=== PATIENT | male | born 1965 | race Caucasian/White ===

== ENCOUNTER 2018-04-14 11:08 | Observation (INO) | payer MEDICAID, SELFPAY ==
[2018-04-14] VITALS (11 sets, daily range): BP systolic 144–164; BP diastolic 90–105; PULSE 69–115; RESP 16–20; TEMP 36.4–36.7; O2SAT 96–100; BMI 25.1; BMI 27.2
--- NOTE | 2018-04-14 11:36 | EKG12_ITS ---
Test Reason : EDEMA Blood Pressure : / mmHG Vent. Rate : 105 BPM Atrial Rate : 105 BPM P-R Int : 136 ms QRS Dur : 084 ms QT Int : 346 ms P-R-T Axes : 046 034 057 degrees QTc Int : 457 ms Sinus tachycardia Low voltage QRS (LIMB LEADS) Borderline ECG Confirmed by GERMAN HOOPER, JUSTICE ([id number]), acquisition editor MARIELA EDWARD ([id number] on 04/15/2018 9:48:20 AM Referred By: CAROLYN Confirmed By:JUSTICE PORTER MD
[2018-04-14] MEDS: HYDROmorphone 1 MG/ML Syringe IV (11:44)
[2018-04-14] MEDS: Ondansetron 4 MG/2 ML Vial IV (11:44)
--- NOTE | 2018-04-14 11:51 | ED.VISSUMM ---
- ER Visit Summary Date of Service: 04/14/18 Chief Complaint: Leg swelling History of Present Illness: The patient is a 52 M who tells me that 1-1/2 weeks ago his abdomen began to swell. Then about 1 week ago he developed swelling to the legs. He notes legs are now weeping. He tells me that about 3-1/2-4 years ago he was diagnosed with stage IV colon cancer as well as throat cancer. After a partial colectomy that was last time he had radiation or chemotherapy. He states he has been avoiding his oncologist Dr. Godoy. He has been seeing his primary care doctor every few months he states. He notes he has been having a lot of diarrhea. He notes some shortness of breath. Physical Examination: Afebrile noted tachycardia stable blood pressure Gen: Well-nourished well-developed Head: Normocephalic atraumatic Eyes: Perrl EOMI ENT: TMs clear no rhinorrhea moist mucous membranes Neck: Supple no lymphadenopathy no JVD nontender CVS: Regular rate cardiac rhythm no murmurs normal S1-S2 Respiratory: No distress clear to auscultation bilaterally chest nontender Abdomen: Distended and tense normal bowel sounds no masses Back: Nontender Extremity: Bilateral lower extremity edema with petechial-like rash near the ankles Skin: Jaundice dry Neuro: alert orientated ?3 CN II-XII intact normal strength sensation reflexes gait cerebellar Psych: Normal affect normal mood Test Results: White count 6.6 with hemoglobin 12.3. EKG shows sinus tachycardia rate of 105. BMP normal. Liver enzymes showed a total bili 3.3 direct bili 2.81. Alk phos of 1858. ALT 118 AST 274. INR 1.[address] the chest demonstrates numerous metastasis. CT of the pelvis demonstrates hepatomegaly with large tumor burden and large ascites with compression of the inferior vena cava. Emergency Department Course and Treatment: I spoke with Dr. Godoy our hospitalist and with the patient and his family. Our plan will be admission for further care. Impression: 1. Metastatic colon cancer 2. Inferior vena cava syndrome This note was generated with [employer] dictation software. It may contain incorrect words, spelling, and punctuation that were not noted in review of the chart prior to signing ED Disposition - Plan for ED Patient: Chief Complaint: Edema Referrals: Hannah Bryson, [employer] [Primary Care Provider] -
[2018-04-14 12:05] LABS: International Normalized Ratio 1.4; Prothrombin Time (Protime)PT. 16.7 SECONDS (11.7-14.9)
[2018-04-14 12:06] LABS: Absolute Lymphocyte Count 0.36 X10^3/ul (0.83-4.51); Absolute Neutrophil Count 5.5 X10^3/uL (2.0-7.7); Basophil# 0.02 X10^3/uL; Basophil% 0.3 % (0-1); Eosinophil# 0.11 X10^3/uL; Eosinophils% 1.7 % (0-5); Hematocrit 37.1 % (40-54); Hemoglobin 12.3 g/dl (13.0-16.5); Lymphocyte # 0.36 X10^3/ul (4.0); Lymphocyte % 5.5 % (19-41); Mean Corp Hgb Conc 33.2 g/gl (32-36); Mean Corpuscular Hgb 28.2 pg (27.0-32.0); Mean Corpuscular Volume 85.1 fL (80-94); Mean Platelet Vol. 10.6 fl (6.2-12.0); Monocyte# 0.55 X10^3/uL; Monocyte% 8.4 % (0-10); Neutrophil # 5.52 X10^3/uL (2.7-7.7); Neutrophil % 83.8 % (47-70); Partial Thromboplast Time 43.9 Seconds (24.1-36.2); Platelet Count 323 K/mm3 (150-450); RBC Distribution Width CV 16.8 % (11.6-14.6); RBC Distribution Width SD 51.9 fl (35.1-43.9); Red Blood Count 4.36 M/mm3 (4.6-6.2); White Blood Count 6.6 K/mm3 (4.4-11.0)
[2018-04-14 12:12] LABS: Differential Indicated SCAN CRITERIA MET; POSITIVE COUNT NO; POSITIVE DIFFERENTIAL YES; POSITIVE MORPHOLOGY NO
[2018-04-14 12:34] LABS: Red Blood Cells-Urine 0 SEEN /hpf (0-5); Squamous Epithelial Cells - UA 0 SEEN /hpf (0-5)
[2018-04-14 12:36] LABS: AST(SGOT) 274 U/L (15-37); Alanine Aminotransfer ALT/SGPT 118 U/L (16-61); Albumin, Serum 2.3 g/dL (3.2-5.0); Alkaline Phosphatase 1858 U/L (45-117); Anion Gap 6 (5-15); BUN 16 mg/dL (7-18); BUN/Creat Ratio 18.3 RATIO (10-20); Bilirubin, Direct 2.81 mg/dL (0.00-0.30); Calcium,Total 8.5 mg/dL (8.5-10.1); Chloride 99 mmol/L (98-107); Creatinine, Serum 0.88 mg/dL (0.70-1.30); EST Glomerular Filtration Rate 97 mL/min (>60); Est Glom Filt Rate - Afr Amer 117 mL/min (>60); Estimated Creatinine Clearance 101.39 ml/min; Globulin 5.1 g/dL (2.2-4.2); Glucose 110 mg/dL (74-106); Lipase 110 U/L (73-393); Potassium 4.2 mmol/L (3.5-5.1); Protein, Total 7.4 g/dL (6.4-8.2); Sodium Level 130 mmol/L (136-145)
[2018-04-14 12:37] LABS: Color, Urine Straw (Yellow); Glucose, Dipstick Normal (Normal); Ketone-Dipstick Negative (Negative); Leukocyte Esterase-Dipstick 25 /ul (Negative); Nitrite-Dipstick Negative (Negative); Occult Blood-Urine Negative /ul (Negative); Protein-Dipstick 30 mg/dl (Negative); Urine Clarity Clear (Clear); Urine Urobilinogen 4 mg/dl (Normal)
[2018-04-14 12:43] LABS: Urine Bilirubin Dipstick 3 mg/dL (Negative)
[2018-04-14 12:46] LABS: Bacteria RARE /hpf (None Seen); Hyaline Cast 0-5 SEEN /lpf (0-5); Mucous, Urine RARE /hpf (<or=2+); White Blood Cells 0-5 SEEN /hpf (0-5)
--- NOTE | 2018-04-14 12:54 | CT_ITS ---
STUDY: CT ABDOMEN AND PELVIS WITH CONTRAST REASON FOR EXAM: Male, 52 years old. Leg swelling RADIATION DOSAGE (If Supplied By Facility): CTDIvol = ( 15.43 ) mGy, DLP = ( 1623.37 ) mGycm TECHNIQUE: Transaxial images were obtained from the lower chest to the upper thighs without oral contrast. 100 ml of Isovue 300 contrast was administered. Sagittal and coronal images were reconstructed. Individualized dose optimization techniques were used for this CT. COMPARISON: CT abdomen and pelvis report dated September 27, 2016 FINDINGS: The lower chest is dictated separately. There are scattered nodules in both lung bases, likely metastases. There is no pleural effusion. The heart is normal in size. There are innumerable hypodense masses scattered throughout both lobes of the liver. There is marked enlargement of the liver. There is non-visualization of the gallbladder, which may be secondary to either contraction or a prior cholecystectomy. The spleen is unremarkable. The pancreas is unremarkable. The adrenal glands are unremarkable. There is a 1 cm cyst in the lower pole of the right kidney. There is no dilatation of the collecting system in the right kidney. The left kidney is unremarkable. There is no dilatation of the collecting system in the left kidney. The stomach is unremarkable. The small bowel is unremarkable. The proximal colon is surgically absent. There are minimal vascular calcifications. The upper IVC is markedly narrowed. There are small lymph nodes scattered in the retroperitoneum. There are prominent lymph nodes in the portal venous space measuring up to 1.8 cm in size. There is marked fluid throughout the abdomen. The urinary bladder is unremarkable. The prostate is normal in size with calcifications. There is moderate fluid in the pelvis. There is stranding throughout the subcutaneous tissues of the upper legs bilaterally. There are mild degenerative changes in the visualized spine. There are a few nonspecific lytic abnormalities in the pelvic bones. CT/Abdomen/Pelvis W IV Cont ONLY IMPRESSION: There is marked enlargement of the liver with innumerable metastatic lesions scattered throughout both lobes of the liver. The liver is markedly narrowing the upper aspect of the IVC, possibly accounting for the leg swelling and soft tissue edema seen in the upper aspects of both legs on the CT. There is marked ascites in the abdomen and pelvis. There are prominent lymph nodes in the portal venous space. There are small lymph nodes scattered along the retroperitoneum. There are small metastases in both lung bases. Electronically Signed: Hallie Kapadia MD at 14:02 EDT Tel Direct: [phone], Service support ,
--- NOTE | 2018-04-14 12:54 | CT_ITS ---
STUDY: CT CHEST WITH CONTRAST REASON FOR EXAM: Male, 52 years old. History of bilateral lower extremity swelling. The patient is a history of stage IV colon cancer. RADIATION DOSAGE (If Supplied By Facility): CTDIvol = ( 15.43 ) mGy, DLP = ( 1623.37 ) mGycm TECHNIQUE: Transaxial imaging was performed following intravenous administration of 100 ml of Isovue 300 contrast material. Multiplanar coronal and sagittal images were reformatted. Individualized dose optimization techniques were used for this CT. COMPARISON: Comparison is made with prior study dated September 27, 2016. FINDINGS: Elevation of the right hemidiaphragm. Mild degree of emphysematous changes. Since prior study, there are multiple small rounded nodular densities seen in both lungs. The largest measures 8.4 mm and is seen in the lateral aspect of the right upper lobe as seen on axial image #46. This is suggestive of a pulmonary metastasis. Mild degree of atelectasis along the anterior aspect of the right middle lobe. There is no demonstrated pleural abnormality. Normal heart and pericardium. Normal mediastinum. Normal hilar regions. Normal enhanced pulmonary arteries. Normal aorta arch and descending thoracic aorta. Normal osseous structures. Elevation of the right hemidiaphragm. Marked degree of hepatomegaly with diffuse hepatic metastasis. There is evidence of a perihepatic and perisplenic fluid. Limited visualization of the upper abdomen demonstrates evidence of mesenteric metastasis. CT/Chest WITH Contrast IMPRESSION: Bilateral multiple pulmonary nodules in keeping with metastatic disease. Marked degree of hepatomegaly with perisplenic and perigastric hepatic fluid. Diffuse hepatic metastasis. Electronically Signed: Flakito Justice MD at 13:49 EDT Tel [phone], Service support ,
--- NOTE | 2018-04-14 14:57 | PCM.HP.STD ---
Problem List (1) Abdominal swelling Status: Acute (2) Swelling of both lower extremities Status: Acute History of Present Illness Date of Admission: 04/14/18 Chief Complaint: abdominal swelling; bilateral leg swelling The patient is a 52 year old M with a history of colon cancer status post colon resection and chemotherapy and radiation about 4 years ago. He subsequently never followed up with oncology. He was admitted through the ED on 04/14/18 with a complaint of abdominal swelling and bilateral lower extremity swelling for 1.5 weeks. Symptoms are progressively worsening with associated shortness of breath and increased weakness. He therefore decided to come into the ED for assessment. He denied any fever or chills, any cough or chest pain and admitted to generalized abdominal pain due to the abdominal swelling. He denied any diarrhea vomiting. Vitals were significant for blood pressure of 149/100 and respiratory rate of 69 at time of review. Sodium was 130 with elevated total bilirubin of 3.3 and direct bilirubin of 2.81. AST and ALT was 274 and 118 and ALP was elevated at 1858. CBC was unremarkable. Abdominal pelvic CT showed marked enlargement of the liver with innumerable metastatic lesions scattered throughout both lobes of the liver with liver markedly narrowing the upper aspect of the IVC possibly accounting for the leg swelling and soft tissue edema seen in the upper aspects of both legs of the CT market ascites in the abdomen and pelvis and prominent lymph nodes in the periportal space and small meta stasis in both lung bases. Chest CT showed bilateral multiple small rounded nodular densities with the largest being around 8.4 mm suggestive of pulmonary metastasis. Is been admitted to be managed for malignant ascites due to metastatic cancer, likely of the colon. [] Past Medical History Allergies shellfish derived Allergy (Verified 04/14/18 11:11) Itching Home Medications: Ambulatory Orders Medication Instructions Recorded Acetaminophen [Tylenol Extra 1,500 mg PO PRN PRN 04/14/18 Strength] Albuterol Sulfate [Ventolin Hfa] 2 puff IH Q4H PRN PRN 04/14/18 Citalopram [Celexa] 20 mg PO DAILY 04/14/18 Lisinopril 40 mg PO DAILY 04/14/18 Omeprazole 20 mg PO DAILY 04/14/18 Ondansetron [Zofran Odt] 8 mg PO Q8H PRN PRN 04/14/18 Oxycodone HCl/Acetaminophen 1 each PO Q4H PRN PRN 04/14/18 [Oxycodon-Acetaminophen 7.5-325] Surgical History: - - hemicolectomy Psychiatric History: No pertinent psych hx Lives: Spouse/ Significant Other Smoking Status: Current every day smoker - 2 packs of cigarettes daily Tobacco Use: Cigarettes Alcohol: None - *Family History Maternal History Items: No pertinent history Paternal History Items: No pertinent history Review of Systems Constitutional: Reports: Anorexia, Chills, Malaise, Weakness, Fatigue. Denies: Fever, Night Sweats Eyes: Denies: Blurred vision HEENT: Denies: Head Aches, Sinus Congestion, Sinus Drainage Cardiovascular: Denies: Chest Pain, Orthopnea, Palpitations, Paroxysmal Noc. Dyspnea, Syncope Respiratory: Reports: Shortness of Breath. Denies: Cough, Shortness of breath at rest, Shortness of breath upon exertion, Sputum production, Wheezing Gastrointestinal: Reports: Abdominal Pain, - - abdominal distension. Denies: Constipation, Diarrhea, Dyspepsia, Nausea, Vomiting Genitourinary: Denies: Dysuria Musculoskeletal: Denies: Joint Pain, Joint Tenderness Skin: Reports: Jaundice. Denies: Rash, Wounds Neurological: Denies: Numbness, Tingling, Focal weakness Psychiatric: Denies: Anxiety, Depression, Homicidal Ideations, Suicidal Ideations Hematologic/ Lymphatic: Denies: Easy Bruising, Easy Bleeding VTE Information - Inpt Only VTE Present on Admission: No VTE Pharm Prophylaxis ordered?: Yes Patient Problems: Active and Suspected Problems Abdominal swelling (Acute) Swelling of both lower extremities (Acute) - Physical Exam General: Alert, Oriented x3, Cooperative, No apparent distress, Lethargic HEENT: Atraumatic, PERRLA, EOMI, Normocephalic, - - very jaundiced sclera Oral: Dry Mucosa Neck: Supple, No JVD, Negative Carotid Bruits Lungs: Clear to auscultation, Normal air movement, No rhonchi, No wheeze, No rales Cardiovascular: Regular rate, Regular Rhythm, Normal S1, Normal S2, No murmurs Abdomen: - - abdomen very distended, with positive fluid thrill. Unable to assess for organomegaly o/a of severe abdominal distension and ascites Extremities: - - bialteral LE pitting 3+ pedal edema, extending from ankle up to groin. Skin: No rashes, No breakdown Musculoskeletal: No Tenderness to Palpation of Joints or Extremities Lymphatic: No Cervical, Supraclavicular, or Inguinal Adenopathy Neurological: Cranial nerves II-XII grossly intact, Neuro grossly intact Psych/Mental Status: Normal Affect, Appropriate, Alert and oriented to time, place, person, mood and affect Vital Signs Temp Pulse Resp BP Pulse Ox 97.5 F L 69 19 H 149/100 H 100 04/14/18 11:09 04/14/18 13:54 04/14/18 13:54 04/14/18 13:54 04/14/18 13:54 Oxygen Delivery Method Room Air Weight: 175 lb Body Mass Index (BMI) 25.1 Laboratory Tests Past 24 Hrs 04/14/18 04/14/18 04/14/18 11:50 11:50 11:50 WBC 6.6 RBC 4.36 L Hgb 12.3 L Hct 37.1 L MCV 85.1 MCH 28.2 MCHC 33.2 RDW 16.8 H RDW Differential 51.9 H Plt Count 323 MPV 10.6 Immature Gran % (Auto) 0.300 Neut % (Auto) 83.8 H Lymph % (Auto) 5.5 L Rout[place] % (Auto) 8.4 Eos % (Auto) 1.7 Baso % (Auto) 0.3 Absolute Neuts (auto) 5.5 Absolute Lymphs (auto) 0.36 L Total Counted Not Reportable Differential Comment COMMENT PT 16.7 H INR 1.4 APTT 43.9 H Sodium 130 L Potassium 4.2 Chloride 99 Carbon Dioxide 25.0 Anion Gap 6 BUN 16 Creatinine 0.88 Estim Creat Clear Calc 101.39 Est GFR (MDRD) Af Amer 117 Est GFR (MDRD) Non-Af 97 BUN/Creatinine Ratio 18.3 Glucose 110 H Calcium 8.5 Total Bilirubin 3.30 H Direct Bilirubin 2.81 H AST 274 H ALT 118 H Alkaline Phosphatase 1858 H Total Protein 7.4 Albumin 2.3 L Globulin 5.1 H Lipase 110 Urine Color Urine Clarity Urine pH Ur Specific [place] Urine Protein Urine Glucose (UA) Urine Ketones Urine Occult Blood Urine Nitrite Urine Bilirubin Urine Urobilinogen Ur Leukocyte Esterase Urine RBC Urine WBC Ur Squamous Epith Cells Urine Bacteria Hyaline Casts Urine Mucus 04/14/18 12:25 WBC RBC Hgb Hct MCV MCH MCHC RDW RDW Differential Plt Count MPV Immature Gran % (Auto) Neut % (Auto) Lymph % (Auto) [place] % (Auto) Eos % (Auto) Baso % (Auto) Absolute Neuts (auto) Absolute Lymphs (auto) Total Counted Differential Comment PT INR APTT Sodium Potassium Chloride Carbon Dioxide Anion Gap BUN Creatinine Estim Creat Clear Calc Est GFR (MDRD) Af Amer Est GFR (MDRD) Non-Af BUN/Creatinine Ratio Glucose Calcium Total Bilirubin Direct Bilirubin AST ALT Alkaline Phosphatase Total Protein Albumin Globulin Lipase Urine Color Straw Urine Clarity Clear Urine pH 5.0 Ur Specific [place] 1.020 Urine Protein 30 H Urine Glucose (UA) Normal Urine Ketones Negative Urine Occult Blood Negative Urine Nitrite Negative Urine Bilirubin 3 H Urine Urobilinogen 4 H Ur Leukocyte Esterase 25 H Urine RBC 0 SEEN Urine WBC 0-5 SEEN Ur Squamous Epith Cells 0 SEEN Urine Bacteria RARE Hyaline Casts 0-5 SEEN Urine Mucus RARE Diagnostic Data Abdomen/Pelvis CT 04/14/18 12:54 IMPRESSION: There is marked enlargement of the liver with innumerable metastatic lesions scattered throughout both lobes of the liver. The liver is markedly narrowing the upper aspect of the IVC, possibly accounting for the leg swelling and soft tissue edema seen in the upper aspects of both legs on the CT. There is marked ascites in the abdomen and pelvis. There are prominent lymph nodes in the portal venous space. There are small lymph nodes scattered along the retroperitoneum. There are small metastases in both lung bases. Electronically Signed: Hallie Kapadia MD at 14:02 EDT Tel Direct: [phone], Service support , Chest CT 04/14/18 12:54 IMPRESSION: Bilateral multiple pulmonary nodules in keeping with metastatic disease. Marked degree of hepatomegaly with perisplenic and perigastric hepatic fluid. Diffuse hepatic metastasis. Electronically Signed: Flakito Justice MD at 13:49 EDT Tel [phone], Service support , Assessment/Plan All Active Problems Abdominal swelling (Acute) Swelling of both lower extremities (Acute) 52 y/o admitted with the complaint of abdominal distention bilateral lower extremity edema. 1. Malignant ascites likely due to metastatic colon cancer lost to follow-up with oncologist after he had chemotherapy and radiation hemicolectomy for colon cancer about 4 years ago. admit to PCU with telemetry for therapeutic and diagnostic paracentesis by radiology. oncology consult. 2. Metastatic cancer, likely colon CT abdomen, pelvis and chest showed numerous hepatic nodules obstructing the IVC and enlarged lymph nodes as well. CT of the chest showed bilateral pulmonary nodules likely metastatic. As mentioned, treated for colon cancer 4 years ago so this is presumed to be metastatic cancer likely due to colon cancer. Consult oncology. Prognosis is very very poor. 3. Bilateral LE swelling likely due to impedance of venous and lymphatic drainage from LEs by massive ascites. However cannot fully rule out DVT due to patient's malignancy. Will get duplex of both lower extremities. Will monitor for resolution with paracentesis. Bilateral Wallace wraps. 4. Hyperbilirubinemia due to hepatic metastases of colon cancer total bilirubin is 3.3; mainly a direct bilirubin-2.8 AST/ALT-274/118. ALP-[id number] consult oncology INR-1.4, APTT-16.7, APTT-43.9 5. Hypertension: on Lisinopril 6. Depression: on celexa 7. Nicotine dependence: smokes 2 packs daily. counselled to quit. DVT prophylaxis: SCDs CODE STATUS: DNRCCA Patient and significant other counseled extensively about different types of CODE STATUS including full code, DNR CCA and DNR CCA. Patient elects to be DNRCCA. Total [id number] time 16 minutes. Code Visit Inpatient E&M: 19548 Init Hosp L3 Procedures: 94688 Advncd Care Plan 30 Min
--- NOTE | 2018-04-14 15:03 | HP.PCM_ITS ---
Problem List (1) Abdominal swelling Status: Acute (2) Swelling of both lower extremities Status: Acute History of Present Illness Date of Admission: 04/14/18 Chief Complaint: abdominal swelling; bilateral leg swelling The patient is a 52 year old M with a history of colon cancer status post colon resection and chemotherapy and radiation about 4 years ago. He subsequently never followed up with oncology. He was admitted through the ED on 04/14/18 with a complaint of abdominal swelling and bilateral lower extremity swelling for 1.5 weeks. Symptoms are progressively worsening with associated shortness of breath and increased weakness. He therefore decided to come into the ED for assessment. He denied any fever or chills, any cough or chest pain and admitted to generalized abdominal pain due to the abdominal swelling. He denied any diarrhea vomiting. Vitals were significant for blood pressure of 149/100 and respiratory rate of 69 at time of review. Sodium was 130 with elevated total bilirubin of 3.3 and direct bilirubin of 2.81. AST and ALT was 274 and 118 and ALP was elevated at 1858. CBC was unremarkable. Abdominal pelvic CT showed marked enlargement of the liver with innumerable metastatic lesions scattered throughout both lobes of the liver with liver markedly narrowing the upper aspect of the IVC possibly accounting for the leg swelling and soft tissue edema seen in the upper aspects of both legs of the CT market ascites in the abdomen and pelvis and prominent lymph nodes in the periportal space and small meta stasis in both lung bases. Chest CT showed bilateral multiple small rounded nodular densities with the largest being around 8.4 mm suggestive of pulmonary metastasis. Is been admitted to be managed for malignant ascites due to metastatic cancer, likely of the colon. [] Past Medical History Allergies shellfish derived Allergy (Verified 04/14/18 11:11) Itching Home Medications: Ambulatory Orders Medication Instructions Recorded Acetaminophen [Tylenol Extra 1,500 mg PO PRN PRN 04/14/18 Strength] Albuterol Sulfate [Ventolin Hfa] 2 puff IH Q4H PRN PRN 04/14/18 Citalopram [Celexa] 20 mg PO DAILY 04/14/18 Lisinopril 40 mg PO DAILY 04/14/18 Omeprazole 20 mg PO DAILY 04/14/18 Ondansetron [Zofran Odt] 8 mg PO Q8H PRN PRN 04/14/18 Oxycodone HCl/Acetaminophen 1 each PO Q4H PRN PRN 04/14/18 [Oxycodon-Acetaminophen 7.5-325] Surgical History: - - hemicolectomy Psychiatric History: No pertinent psych hx Lives: Spouse/ Significant Other Smoking Status: Current every day smoker - 2 packs of cigarettes daily Tobacco Use: Cigarettes Alcohol: None - *Family History Maternal History Items: No pertinent history Paternal History Items: No pertinent history Review of Systems Constitutional: Reports: Anorexia, Chills, Malaise, Weakness, Fatigue. Denies: Fever, Night Sweats Eyes: Denies: Blurred vision HEENT: Denies: Head Aches, Sinus Congestion, Sinus Drainage Cardiovascular: Denies: Chest Pain, Orthopnea, Palpitations, Paroxysmal Noc. Dyspnea, Syncope Respiratory: Reports: Shortness of Breath. Denies: Cough, Shortness of breath at rest, Shortness of breath upon exertion, Sputum production, Wheezing Gastrointestinal: Reports: Abdominal Pain, - - abdominal distension. Denies: Constipation, Diarrhea, Dyspepsia, Nausea, Vomiting Genitourinary: Denies: Dysuria Musculoskeletal: Denies: Joint Pain, Joint Tenderness Skin: Reports: Jaundice. Denies: Rash, Wounds Neurological: Denies: Numbness, Tingling, Focal weakness Psychiatric: Denies: Anxiety, Depression, Homicidal Ideations, Suicidal Ideations Hematologic/ Lymphatic: Denies: Easy Bruising, Easy Bleeding VTE Information - Inpt Only VTE Present on Admission: No VTE Pharm Prophylaxis ordered?: Yes Patient Problems: Active and Suspected Problems Abdominal swelling (Acute) Swelling of both lower extremities (Acute) - Physical Exam General: Alert, Oriented x3, Cooperative, No apparent distress, Lethargic HEENT: Atraumatic, PERRLA, EOMI, Normocephalic, - - very jaundiced sclera Oral: Dry Mucosa Neck: Supple, No JVD, Negative Carotid Bruits Lungs: Clear to auscultation, Normal air movement, No rhonchi, No wheeze, No rales Cardiovascular: Regular rate, Regular Rhythm, Normal S1, Normal S2, No murmurs Abdomen: - - abdomen very distended, with positive fluid thrill. Unable to assess for organomegaly o/a of severe abdominal distension and ascites Extremities: - - bialteral LE pitting 3+ pedal edema, extending from ankle up to groin. Skin: No rashes, No breakdown Musculoskeletal: No Tenderness to Palpation of Joints or Extremities Lymphatic: No Cervical, Supraclavicular, or Inguinal Adenopathy Neurological: Cranial nerves II-XII grossly intact, Neuro grossly intact Psych/Mental Status: Normal Affect, Appropriate, Alert and oriented to time, place, person, mood and affect Vital Signs Temp Pulse Resp BP Pulse Ox 97.5 F L 69 19 H 149/100 H 100 04/14/18 11:09 04/14/18 13:54 04/14/18 13:54 04/14/18 13:54 04/14/18 13:54 Oxygen Delivery Method Room Air Weight: 175 lb Body Mass Index (BMI) 25.1 Laboratory Tests Past 24 Hrs 04/14/18 04/14/18 04/14/18 11:50 11:50 11:50 WBC 6.6 RBC 4.36 L Hgb 12.3 L Hct 37.1 L MCV 85.1 MCH 28.2 MCHC 33.2 RDW 16.8 H RDW Differential 51.9 H Plt Count 323 MPV 10.6 Immature Gran % (Auto) 0.300 Neut % (Auto) 83.8 H Lymph % (Auto) 5.5 L Slope % (Auto) 8.4 Eos % (Auto) 1.7 Baso % (Auto) 0.3 Absolute Neuts (auto) 5.5 Absolute Lymphs (auto) 0.36 L Total Counted Not Reportable Differential Comment COMMENT PT 16.7 H INR 1.4 APTT 43.9 H Sodium 130 L Potassium 4.2 Chloride 99 Carbon Dioxide 25.0 Anion Gap 6 BUN 16 Creatinine 0.88 Estim Creat Clear Calc 101.39 Est GFR (MDRD) Af Amer 117 Est GFR (MDRD) Non-Af 97 BUN/Creatinine Ratio 18.3 Glucose 110 H Calcium 8.5 Total Bilirubin 3.30 H Direct Bilirubin 2.81 H AST 274 H ALT 118 H Alkaline Phosphatase 1858 H Total Protein 7.4 Albumin 2.3 L Globulin 5.1 H Lipase 110 Urine Color Urine Clarity Urine pH Ur Specific [place] Urine Protein Urine Glucose (UA) Urine Ketones Urine Occult Blood Urine Nitrite Urine Bilirubin Urine Urobilinogen Ur Leukocyte Esterase Urine RBC Urine WBC Ur Squamous Epith Cells Urine Bacteria Hyaline Casts Urine Mucus 04/14/18 12:25 WBC RBC Hgb Hct MCV MCH MCHC RDW RDW Differential Plt Count MPV Immature Gran % (Auto) Neut % (Auto) Lymph % (Auto) Slope % (Auto) Eos % (Auto) Baso % (Auto) Absolute Neuts (auto) Absolute Lymphs (auto) Total Counted Differential Comment PT INR APTT Sodium Potassium Chloride Carbon Dioxide Anion Gap BUN Creatinine Estim Creat Clear Calc Est GFR (MDRD) Af Amer Est GFR (MDRD) Non-Af BUN/Creatinine Ratio Glucose Calcium Total Bilirubin Direct Bilirubin AST ALT Alkaline Phosphatase Total Protein Albumin Globulin Lipase Urine Color Straw Urine Clarity Clear Urine pH 5.0 Ur Specific [place] 1.020 Urine Protein 30 H Urine Glucose (UA) Normal Urine Ketones Negative Urine Occult Blood Negative Urine Nitrite Negative Urine Bilirubin 3 H Urine Urobilinogen 4 H Ur Leukocyte Esterase 25 H Urine RBC 0 SEEN Urine WBC 0-5 SEEN Ur Squamous Epith Cells 0 SEEN Urine Bacteria RARE Hyaline Casts 0-5 SEEN Urine Mucus RARE Diagnostic Data Abdomen/Pelvis CT 04/14/18 12:54 IMPRESSION: There is marked enlargement of the liver with innumerable metastatic lesions scattered throughout both lobes of the liver. The liver is markedly narrowing the upper aspect of the IVC, possibly accounting for the leg swelling and soft tissue edema seen in the upper aspects of both legs on the CT. There is marked ascites in the abdomen and pelvis. There are prominent lymph nodes in the portal venous space. There are small lymph nodes scattered along the retroperitoneum. There are small metastases in both lung bases. Electronically Signed: Hallie Kapadia MD at 14:02 EDT Tel Direct: [phone], Service support , Chest CT 04/14/18 12:54 IMPRESSION: Bilateral multiple pulmonary nodules in keeping with metastatic disease. Marked degree of hepatomegaly with perisplenic and perigastric hepatic fluid. Diffuse hepatic metastasis. Electronically Signed: Flakito Justice MD at 13:49 EDT Tel [phone], Service support , Assessment/Plan All Active Problems Abdominal swelling (Acute) Swelling of both lower extremities (Acute) 52 y/o admitted with the complaint of abdominal distention bilateral lower extremity edema. 1. Malignant ascites likely due to metastatic colon cancer * lost to follow-up with oncologist after he had chemotherapy and radiation hemicolectomy for colon cancer about 4 years ago. * admit to PCU with telemetry * for therapeutic and diagnostic paracentesis by radiology. * oncology consult. * 2. Metastatic cancer, likely colon * CT abdomen, pelvis and chest showed numerous hepatic nodules obstructing the IVC and enlarged lymph nodes as well. CT of the chest showed bilateral pu lmonary nodules likely metastatic. * As mentioned, treated for colon cancer 4 years ago so this is presumed to be metastatic cancer likely due to colon cancer. * Consult oncology. Prognosis is very very poor. * 3. Bilateral LE swelling * likely due to impedance of venous and lymphatic drainage from LEs by massive ascites. However cannot fully rule out DVT due to patient's malignancy. * Will get duplex of both lower extremities. * Will monitor for resolution with paracentesis. * Bilateral Wallace wraps. * 4. Hyperbilirubinemia due to hepatic metastases of colon cancer * total bilirubin is 3.3; mainly a direct bilirubin-2.8 * AST/ALT-274/118. ALP-1858 * consult oncology * INR-1.4, APTT-16.7, APTT-43.9 * 5. Hypertension: on Lisinopril 6. Depression: on celexa 7. Nicotine dependence: smokes 2 packs daily. counselled to quit. DVT prophylaxis: SCDs CODE STATUS: DNRCCA * Patient and significant other counseled extensively about different types of CODE STATUS including full code, DNR CCA and DNR CCA. Patient elects to be DNRCCA. Total [id number]-gp-[id number] time 16 minutes. * Code Visit Inpatient E&M: 48960 Init Hosp L3 Procedures: 82419 Advncd Care Plan 30 Min
--- NOTE | 2018-04-14 15:23 | VDLE_ITS ---
[id number] VL^VDU^Venous Duplex US - Darwin Extrem [id number] TAG_START [facility] Venous Doppler [address] [place] [address] Ordering Physician: Swati Waddell TAG_ENDED TAG_START Name: JANELLE PAULA Study Date: 04/14/2018 03:53 PM Patient Location: [facility]^[id number]^1 : 1965 Gender: Male Age: 52 yrs TAG_ENDED Reason For Study: LEG SWELLING RIGHT LEFT GSV is normal. GSV is normal. CFV is compressible, spontaneous, phasic, CFV is compressible, spontaneous, phasic, competent and demonstrates normal competent, and demonstrates normal augmentation. augmentation. FV is compressible, spontaneous, phasic, FV is compressible, spontaneous, phasic, competent and demonstrates normal competent and demonstrates normal augmentation. augmentation. POP V is compressible, spontaneous, phasic, POP V is compressible, spontaneous, phasic, competent and demonstrates normal competent and demonstrates normal augmentation. augmentation. T/P Trunk is compressible. T/P Trunk is compressible. PTV is compressible. PTV is compressible. RT PerV is compressible. LT PerV is compressible. Procedure Exam performed portable in patient room. A preliminary report was called and/or faxed to [facility]. <> Interpretation Summary Deep veins of the lower extremities are bilaterally patent and compressible segmentally. There is no evidence of deep vein thrombosis on either side. Valvular competence appears intact within the proximal deep venous systems bilaterally. The greater saphenous veins appear bilaterally patent and compressible segmentally. TAG_START TAG_ENDED Ordering Physician: Swati Waddell Referring Physician: Hannah Bryson Performed By: Radha Portillo RVT
--- NOTE | 2018-04-14 15:51 | NURSING ---
PT HAS UNACCESSED PORT IN RIGHT CHEST
[2018-04-14] MEDS: Pantoprazole Sodium 20 MG Tablet PO (16:19)
[2018-04-14] MEDS: Lisinopril 40 MG Tablet PO (16:19)
[2018-04-14] MEDS: Citalopram 20 MG Tablet PO (16:19)
[2018-04-14] MEDS: oxyCODONE 5 MG Tablet PO ×2 (16:41→20:41)
[2018-04-14] MEDS: 0.9% Normal Saline 1,000 ML 75 ML IV (18:42)
[2018-04-15] VITALS (12 sets, daily range): BP systolic 140–155; BP diastolic 86–94; PULSE 90–108; RESP 18–22; TEMP 36.4–37.2; O2SAT 94–98
--- NOTE | 2018-04-15 | FLU_PTH ---
PATIENT: JANELLE PAULA LOC: U U#:[id number] AGE/SX: 52/M ROOM: [facility] RE04/14/[address]: Dr. Francisco Torres DO : 1965 BED: 1 DIS: 04/15/2018 SPEC #: [id number] RECD: 04/15/18 14:56 STATUS: WALT REQ #: [id number] TREMAINE: 04/15/18 00:[address]: Francisco Torres DEPT: CYTOLOGY RECD BY: Donny Neely ENTERED: 04/15/18 14:56 SP TYPE: Fluid OTHR DR: MD Dr. James Coker, DO Hannah Bryson, CORE DRILLER HELPER-C Tissues: PARACENTESIS FLUID Procedures: Pap Stain (control) Special Stain Group II Surgery Specimen Level IV Cell Block Cytospin Fluid HEADER OPERATION: Ultrasound-guided right paracentesis PRE-OP DIAGNOSIS: Ascites TISSUE SUBMITTED: Paracentesis fluid for cytology DIAGNOSIS CYTOLOGY Paracentesis fluid for cytology (cytospin and cell block): Negative for malignant cells. See cytology study. SJ:rg 04/16/18 CYTOLOGY STUDY Slides are reviewed. The specimen consists of macrophages, mesothelial cells and inflammatory cells. CYTOLOGY GROSS Received is 100 ml of yellow cloudy fluid labeled with the patient's name and and designated per the requisition as paracentesis. Submitted for cytology preparation including cell block. / 04/15/18 TC:5 CPT: 50862, 03051
[2018-04-15] MEDS: oxyCODONE 5 MG Tablet PO ×4 (02:45→19:00)
[2018-04-15 06:55] LABS: International Normalized Ratio 1.5; Prothrombin Time (Protime)PT. 18.2 SECONDS (11.7-14.9)
[2018-04-15 06:56] LABS: Partial Thromboplast Time 45.6 Seconds (24.1-36.2)
[2018-04-15 06:57] LABS: Absolute Lymphocyte Count 0.46 X10^3/ul (0.83-4.51); Absolute Neutrophil Count 5.7 X10^3/uL (2.0-7.7); Basophil# 0.02 X10^3/uL; Basophil% 0.3 % (0-1); Eosinophil# 0.13 X10^3/uL; Eosinophils% 1.8 % (0-5); Hematocrit 34.7 % (40-54); Hemoglobin 11.6 g/dl (13.0-16.5); Lymphocyte # 0.46 X10^3/ul (4.0); Lymphocyte % 6.5 % (19-41); Mean Corp Hgb Conc 33.4 g/gl (32-36); Mean Corpuscular Hgb 28.2 pg (27.0-32.0); Mean Corpuscular Volume 84.4 fL (80-94); Mean Platelet Vol. 10.4 fl (6.2-12.0); Monocyte# 0.81 X10^3/uL; Monocyte% 11.4 % (0-10); Neutrophil # 5.66 X10^3/uL (2.7-7.7); Neutrophil % 79.9 % (47-70); Platelet Count 295 K/mm3 (150-450); RBC Distribution Width CV 16.9 % (11.6-14.6); RBC Distribution Width SD 51.4 fl (35.1-43.9); Red Blood Count 4.11 M/mm3 (4.6-6.2); White Blood Count 7.1 K/mm3 (4.4-11.0)
[2018-04-15 06:58] LABS: Differential Indicated SCAN CRITERIA MET; POSITIVE COUNT NO; POSITIVE DIFFERENTIAL YES; POSITIVE MORPHOLOGY NO
[2018-04-15 07:24] LABS: Differential Comment SCANNED; Hypochromasia 2+; Target Cells 1+
[2018-04-15 07:33] LABS: ALB/GLOB Ratio 0.4 RATIO (0.9-2.4); AST(SGOT) 269 U/L (15-37); Alanine Aminotransfer ALT/SGPT 124 U/L (16-61); Alkaline Phosphatase 1783 U/L (45-117); Anion Gap 11 (5-15); BUN 20 mg/dL (7-18); Calcium,Total 8.6 mg/dL (8.5-10.1); Chloride 99 mmol/L (98-107); Creatinine, Serum 0.87 mg/dL (0.70-1.30); EST Glomerular Filtration Rate 98 mL/min (>60); Est Glom Filt Rate - Afr Amer 118 mL/min (>60); Estimated Creatinine Clearance 102.55 ml/min; Globulin 4.7 g/dL (2.2-4.2); Glucose 94 mg/dL (74-106); Potassium 4.7 mmol/L (3.5-5.1); Protein, Total 6.7 g/dL (6.4-8.2); Sodium Level 132 mmol/L (136-145)
--- NOTE | 2018-04-15 08:36 | PCM.CONS.B ---
Problem List (1) Colon cancer metastasized to liver Status: Acute - Consult Date of Consult: 04/15/18. - Reason for Consult Diagnoses: 1) Stage IV colon cancer. K-dominik wild type. 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 ? HPI: The patient is a 52-yo male who had intermittent abdominal pain over year prior to presentation in 2013. Had CT at [facility] 02/03/2014. Hypodense lesion in segment 7 of liver 1 cm. Previously noted cyst in segment IVb. Irregularity of the cecum with adjacent abnormally enlarged lymph node. Largest node was right abdominal mesentery 1.9 cm. ? Referred to Dr. Nugent who performed colonoscopy 02/17/2014--Colon, proximal ascending, biopsy Invasive moderately differentiated adenocarcinoma. ? Underwent surgery 02/18/2014: ? Pathology: 8 cm adenocarcinoma with focal mucinous diff through muscularis propria. 8 of 21 nodes positive. Metastatic nodule in omentum 2.5 cm. Positive for microsatellite instability. ? Other significant issue is a 6 month h/o enlarged left cervical LN at presentation. CT neck 02/17/2014 showed 2.8 cm at level IIB. Had biopsy of left pharyngeal tonstil 03/15/2014. Pathology: Poorly differentiated SCC; p16 positive. ? Had cutaneous SCC removed from posterior neck in 2011. ? Previous therapy: Colon cancer 1) Liver directed therapy; 6 foci ablated microwave 06/15/2014. 2) FOLFOX/Cetuximab x4 cycles. ? Previous therapy: Head and neck cancer 1) Radiation--patient did not complete. ? Patient did not previously follow-up with me until once in 10/2017. He was seen by an oncologist in September 2016. He underwent a CT scan at [facility] on 09/27/2016. Had a PET scan done in 2014 at [facility]. The CT scan from September 2016 demonstrated numerous low attenuation lesions throughout the right and left liver. There were some pleural-based small 2-3 mm nodules. No other areas of concern. Patient was advised to have an abdominal MRI. He did not undergo that procedure. ? Seen by me in October 2017 for enlarging left cervical lymph node. Repeat staging studies with plan for treatment for colon cancer planned but patient to not follow-up. Presented to the ED yesterday with a several month history of worsening abdominal distention and discomfort. CT scan shows significant metastatic disease burden in the liver along with ascites. Patient admitted with plan for diagnostic and therapeutic paracentesis. He's also had significant swelling of his lower extremities. Appetite is declined. No recent episodes of fever. Allergies shellfish derived Allergy (Verified 04/14/18 11:11) Itching Current Medications Albuterol Sulfate (Ventolin Aerosols) 2.5 mg INHALATION Q4H PRN PRN Reason: SOB/WHEEZING Citalopram Hydrobromide (Celexa) 20 mg PO DAILY [facility] Last Admin: 04/14/18 16:19 Dose: 20 mg Sodium Chloride () 1,000 mls @ 75 mls/hr IV .[id number] [facility] Stop: 04/15/18 20:44 Last Admin: 04/14/18 18:42 Dose: 75 mls/hr Lisinopril (Zestril) 40 mg PO DAILY [facility] Last Admin: 04/14/18 16:19 Dose: 40 mg Magnesium Hydroxide (Milk Of Magnesia) 30 ml PO DAILY PRN PRN PRN Reason: Constipation Ondansetron HCl (Zofran) 8 mg PO Q8H PRN PRN PRN Reason: NAUSEA Oxycodone HCl (Oxyir) 5 mg PO Q4H PRN PRN PRN Reason: PAIN Last Admin: 04/15/18 02:45 Dose: 5 mg Pantoprazole Sodium (Protonix) 20 mg PO DAILY [facility] Last Admin: 04/14/18 16:19 Dose: 20 mg Sodium Chloride () 5 - 30 ml IV UD PRN PRN Reason: SALINE FLUSH PHYSICAL EXAM: Vitals: Vital Signs Temp 98.3 F 04/15/18 02:38 Pulse 107 H 04/15/18 07:04 Resp 22 H 04/15/18 02:38 BP 140/94 H 04/15/18 02:38 Pulse Ox 94 04/15/18 02:38 Intake & Output 04/13/18 04/14/18 04/15/18 23:59 23:59 23:59 Intake Total 360 / 360 1737 / 1737 Output Total 175 / 175 Balance 360 / 360 1562 / 1562 Weight: 86.137 kg 87.2 kg Intake: Oral 360 / 360 900 / 900 IV fluid/meds 837 / 837 Output: Urine 175 / 175 Other: Number of Voids 1 1 Number of Bowel Movements 1 Ill-appearing and in no acute distress. EYES: Sclerae are icteric bilaterally. NECK: Supple. LYMPHATIC: firm, enlarged stable fixed lymph node upper left neck. RESPIRATORY: Inspiratory breath sounds are of diminished in all fernandez. CARDIOVASCULAR: Rhythm is regular. ABDOMEN: abdomen is distended with a fluid wave. There is hepatomegaly. Extremities: bilateral lower stomach swelling with Wallace wraps in place. NEUROLOGIC: non morse intercept technician II-XII are grossly intact. No focal motor weakness. MUSCULOSKELETAL: generalized muscle wasting. ASSESSMENT/PLAN: 1) Metastatic colon cancer. Assessment: -KPS is 40-50%. -Dominik wild type tumor. -patient has had slowly progressive metastatic colon cancer over the last 5 years. He has not consistently followed up with his care. -I had a very open and lola discussion with the patient today that I still think is very reasonable to treat with chemotherapy and EGFR directed treatment (counts and other labs reasonable. Doing so can't extend his life considerably. However that window of opportunity for treatment is rapidly closing. At this juncture he seems to be open to the idea of undergoing treatment. I explained that once he has paracentesis he might be appropriate for discharge and then we can arrange to have chemotherapy started fairly quickly. Plan: -Paracentesis today. -Potential discharge today. -Anticipate starting FOLFOX with panitumumab early next week. -Avoid irinotecan (FOLFIRI) for now until it is determined as to whether or not he has improved liver function assuming disease response. -He'll need to be scheduled for once weekly therapeutic paracentesis as an outpatient.
--- NOTE | 2018-04-15 08:40 | CON.PCM_ITS ---
Problem List (1) Colon cancer metastasized to liver Status: Acute - Consult Date of Consult: 04/15/18. - Reason for Consult Diagnoses: 1) Stage IV colon cancer. K-dominik wild type. 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 ? HPI: The patient is a 52-yo male who had intermittent abdominal pain over year prior to presentation in 2013. Had CT at [place] 02/03/2014. Hypodense les ion in segment 7 of liver 1 cm. Previously noted cyst in segment IVb. Irregularity of the cecum with adjacent abnormally enlarged lymph node. Largest node was right abdominal mesentery 1.9 cm. ? Referred to Dr. Nugent who performed colonoscopy 02/17/2014--Colon, proximal ascending, biopsy Invasive moderately differentiated adenocarcinoma. ? Underwent surgery 02/18/2014: ? Pathology: 8 cm adenocarcinoma with focal mucinous diff through muscularis propria. 8 of 21 nodes positive. Metastatic nodule in omentum 2.5 cm. Positive for microsatellite instability. ? Other significant issue is a 6 month h/o enlarged left cervical LN at presentation. CT neck 02/17/2014 showed 2.8 cm at level IIB. Had biopsy of left pharyngeal tonstil 03/15/2014. Pathology: Poorly differentiated SCC; p16 positive. ? Had cutaneous SCC removed from posterior neck in 2011. ? Previous therapy: Colon cancer 1) Liver directed therapy; 6 foci ablated microwave 06/15/2014. 2) FOLFOX/Cetuximab x4 cycles. ? Previous therapy: Head and neck cancer 1) Radiation--patient did not complete. ? Patient did not previously follow-up with me until once in 10/2017. He was seen by an oncologist in September 2016. He underwent a CT scan at [facility] on 09/27/2016. Had a PET scan done in 2014 at [facility]. The CT scan from September 2016 demonstrated numerous low attenuation lesions throughout the right and left liver. There were some pleural-based small 2-3 mm nodules. No other areas of concern. Patient was advised to have an abdominal MRI. He did not undergo that procedure. ? Seen by me in October 2017 for enlarging left cervical lymph node. Repeat staging studies with plan for treatment for colon cancer planned but patient to not fol low-up. Presented to the ED yesterday with a several month history of worsening abdominal distention and discomfort. CT scan shows significant metastatic disease burden in the liver along with ascites. Patient admitted with plan for diagnostic and therapeutic paracentesis. He's also had significant swelling of his lower extremities. Appetite is declined. No recent episodes of fever. Allergies shellfish derived Allergy (Verified 04/14/18 11:11) Itching Current Medications Albuterol Sulfate (Ventolin Aerosols) 2.5 mg INHALATION Q4H PRN PRN Reason: SOB/WHEEZING Citalopram Hydrobromide (Celexa) 20 mg PO DAILY [facility] Last Admin: 04/14/18 16:19 Dose: 20 mg Sodium Chloride () 1,000 mls @ 75 mls/hr IV .[id number] [facility] Stop: 04/15/18 20:44 Last Admin: 04/14/18 18:42 Dose: 75 mls/hr Lisinopril (Zestril) 40 mg PO DAILY [facility] Last Admin: 04/14/18 16:19 Dose: 40 mg Magnesium Hydroxide (Milk Of Magnesia) 30 ml PO DAILY PRN PRN PRN Reason: Constipation Ondansetron HCl (Zofran) 8 mg PO Q8H PRN PRN PRN Reason: NAUSEA Oxycodone HCl (Oxyir) 5 mg PO Q4H PRN PRN PRN Reason: PAIN Last Admin: 04/15/18 02:45 Dose: 5 mg Pantoprazole Sodium (Protonix) 20 mg PO DAILY [facility] Last Admin: 04/14/18 16:19 Dose: 20 mg Sodium Chloride () 5 - 30 ml IV UD PRN PRN Reason: SALINE FLUSH PHYSICAL EXAM: Vitals: Vital Signs Temp 98.3 F 04/15/18 02:38 Pulse 107 H 04/15/18 07:04 Resp 22 H 04/15/18 02:38 BP 140/94 H 04/15/18 02:38 Pulse Ox 94 04/15/18 02:38 Intake & Output 04/13/18 04/14/18 04/15/18 23:59 23:59 23:59 Intake Total 360 / 360 1737 / 1737 Output Total 175 / 175 Balance 360 / 360 1562 / 1562 Weight: 86.137 kg 87.2 kg Intake: Oral 360 / 360 900 / 900 IV fluid/meds 837 / 837 Output: Urine 175 / 175 Other: Number of Voids 1 1 Number of Bowel Movements 1 Ill-appearing and in no acute distress. EYES: Sclerae are icteric bilaterally. NECK: Supple. LYMPHATIC: firm, enlarged stable fixed lymph node upper left neck. RESPIRATORY: Inspiratory breath sounds are of diminished in all fernandez. CARDIOVASCULAR: Rhythm is regular. ABDOMEN: abdomen is distended with a fluid wave. There is hepatomegaly. Extremities: bilateral lower stomach swelling with Wallace wraps in place. NEUROLOGIC: transmission system operator II-XII are grossly intact. No focal motor weakness. MUSCULOSKELETAL: generalized muscle wasting. ASSESSMENT/PLAN: 1) Metastatic colon cancer. Assessment: -KPS is 40-50%. -Dominik wild type tumor. -patient has had slowly progressive metastatic colon cancer over the last 5 years. He has not consistently followed up with his care. -I had a very open and lola discussion with the patient today that I still think is very reasonable to treat with chemotherapy and EGFR directed treatment (counts and other labs reasonable. Doing so can't extend his life considerably. However that window of opportunity for treatment is rapidly closing. At this juncture he seems to be open to the idea of undergoing treatment. I explained that once he has paracentesis he might be appropriate for discharge and then we can arrange to have chemotherapy started fairly quickly. Plan: -Paracentesis today. -Potential discharge today. -Anticipate starting FOLFOX with panitumumab early next week. -Avoid irinotecan (FOLFIRI) for now until it is determined as to whether or not he has improved liver function assuming disease response. -He'll need to be scheduled for once weekly therapeutic paracentesis as an outp atient.
[2018-04-15] MEDS: 0.9% Normal Saline 1,000 ML 75 ML IV (08:43)
[2018-04-15] MEDS: Citalopram 20 MG Tablet PO (08:43)
[2018-04-15] MEDS: Pantoprazole Sodium 20 MG Tablet PO (08:43)
[2018-04-15] MEDS: Lisinopril 40 MG Tablet PO (08:43)
--- NOTE | 2018-04-15 11:56 | CASEMGMT ---
BRITTANY RAYA assessment: Face to Face with patient for initial transition planning/care coordination assessment. BRITTANY RAYA introduced self and role at [facility], pt voices understanding and consents to assessment at this time. Pt is sitting up on side of bed in no distress at this time. Pt is A/Ox4 at this time and answers all questions appropriately at this time. Care providers, pharmacy, and demographics verified/updated at this time. PCP: Rosa Bryson Specialists: Walt-onc Preferred Pharmacy: [facility] Insurance: [facility] Prescription Benefit: [facility] Living Will/HPOA: Pt states that 'girlfriend is working on' LW/HPOA. Pt advised that [facility] SW can complete for pt while here and pt requests that SW come back this afternoon when his girlfriend is here to complete paperwork. Referral to [facility] ALFREDO at this time, voices understanding. LNOK: Susi Chinchilla, girlfriend Living Arrangements: Pt states that he lives with girlfriend in a mobile home with 2 steps in and states no concerns at home at this time. Pt states normally cares for himself at home and states no concerns. Transportation: Pt states drives self and states no transportation concerns at this time. DME/HHC: Pt states has no current DME at home and states no need for any at this time. Pt states no hx of HHC or SNF in the past. Pt voices no concerns with going home at time of discharge. Pt states that he is ready to go today and that Dr. Godoy would like to get him started on chemo orestes. Pt states is disabled. Pt states smokes 2packs/day and does not drink ETOH. Pt states no further concerns/needs at this time. CM to follow for any further discharge planning/needs. Advised pt to ask for CM if any further questions/concerns/needs arise, voices understanding. Plan: [place] BRITTANY RAYA
--- NOTE | 2018-04-15 12:28 | PCM.DC ---
- Discharge Diagnoses Current Active Problems: Current Active and Chronic Problems Abdominal swelling (Acute) Swelling of both lower extremities (Acute) Colon cancer metastasized to liver (Acute) You will use the following diet at home:: No restrictions Discharge Activity: Return to Normal Activity Call your doctor if you observe: Shortness of breath, Dizziness, Fainting spells, Chest pain Additional Instructions: Continue kavon wraps on both lower extremities. Allergies/Adverse Reactions: Allergies shellfish derived Allergy (Verified 04/14/18 11:11) Itching Medications to take at Discharge Acetaminophen [Tylenol Extra Strength] 1,500 mg PO PRN PRN 04/14/18 Albuterol Sulfate [Ventolin Hfa] 2 puff IH Q4H PRN PRN 04/14/18 Citalopram [Celexa] 20 mg PO DAILY 04/14/18 Lisinopril 40 mg PO DAILY 04/14/18 Omeprazole 20 mg PO DAILY 04/14/18 Ondansetron [Zofran Odt] 8 mg PO Q8H PRN PRN 04/14/18 Oxycodone HCl/Acetaminophen [Oxycodon-Acetaminophen 7.5-325] 1 each PO Q4H PRN PRN 04/14/18 Primary Care Physician: Hannah Bryson NP-C [Primary Care Provider] - Please follow up with your Primary Care Physician in: 1 Week Test Results: Test results from this visit will be discussed in further detail at your follow-up appointment, if applicable. Please Follow Up With: James Godoy DO When: 2-3 days, call for appt. Proposed Discharge Date: 04/15/18
--- NOTE | 2018-04-15 12:33 | DCINST_ITS ---
- Discharge Diagnoses Current Active Problems: Current Active and Chronic Problems Abdominal swelling (Acute) Swelling of both lower extremities (Acute) Colon cancer metastasized to liver (Acute) You will use the following diet at home:: No restrictions Discharge Activity: Return to Normal Activity Call your doctor if you observe: Shortness of breath, Dizziness, Fainting spells, Chest pain Additional Instructions: Continue kavon wraps on both lower extremities. Allergies/Adverse Reactions: Allergies shellfish derived Allergy (Verified 04/14/18 11:11) Itching Medications to take at Discharge Acetaminophen [Tylenol Extra Strength] 1,500 mg PO PRN PRN 04/14/18 Albuterol Sulfate [Ventolin Hfa] 2 puff IH Q4H PRN PRN 04/14/18 Citalopram [Celexa] 20 mg PO DAILY 04/14/18 Lisinopril 40 mg PO DAILY 04/14/18 Omeprazole 20 mg PO DAILY 04/14/18 Ondansetron [Zofran Odt] 8 mg PO Q8H PRN PRN 04/14/18 Oxycodone HCl/Acetaminophen [Oxycodon-Acetaminophen 7.5-325] 1 each PO Q4H PRN PRN 04/14/18 Primary Care Physician: Hannah Bryson NP-C [Primary Care Provider] - Please follow up with your Primary Care Physician in: 1 Week Test Results: Test results from this visit will be discussed in further detail at your follow- up appointment, if applicable. Please Follow Up With: James Godoy DO When: 2-3 days, call for appt. Proposed Discharge Date: 04/15/18
--- NOTE | 2018-04-15 12:33 | PCM.DC.SUM ---
<Jaylin Elkins - Last Filed: 04/15/18 14:37> Discharge Date and Diagnosis - Problem List Patient Problems: Active and Suspected Problems Ascites (Acute) Date of Admission: 04/14/18 Date of Discharge: 04/15/18 - Primary Discharge Diagnosis Active and Suspected Problems 1. Metastatic colon cancer 2. Suspected malignant ascites secondary to #1 status post paracentesis 3. Hyperbilirubinemia-secondary to #1. 4. 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 Hospital Course and Treatment Imaging Results: Diagnostic Data Abdomen/Pelvis CT 04/14/18 12:54 IMPRESSION: There is marked enlargement of the liver with innumerable metastatic lesions scattered throughout both lobes of the liver. The liver is markedly narrowing the upper aspect of the IVC, possibly accounting for the leg swelling and soft tissue edema seen in the upper aspects of both legs on the CT. There is marked ascites in the abdomen and pelvis. There are prominent lymph nodes in the portal venous space. There are small lymph nodes scattered along the retroperitoneum. There are small metastases in both lung bases. Electronically Signed: Hallie Kapadia MD at 14:02 EDT Tel Direct: [phone], Service support , Chest CT 04/14/18 12:54 IMPRESSION: Bilateral multiple pulmonary nodules in keeping with metastatic disease. Marked degree of hepatomegaly with perisplenic and perigastric hepatic fluid. Diffuse hepatic metastasis. Electronically Signed: Flakito Justice MD at 13:49 EDT Tel [phone], Service support , Dr. Godoy- Oncology Operations: None Procedures: Paracentesis Summary of Care Provided: The patient is a 52 year old M admitted 1029 due to abdominal swelling and lower extremity swelling. Patient has a history of metastatic colon cancer status post colon resection and chemotherapy/radiation about 3-1/2 years ago. He aborted treatment and discontinued following with oncology. His other past medical history includes hypertension, GERD, depression, tobacco dependence. CT of chest showed bilateral multiple pulmonary nodules consistent with metastatic disease. Marked degree of hepatomegaly with perisplenic and perigastric hepatic fluid. Diffuse hepatic metastasis. CT of abdomen showed enlargement of liver with innumerable metastatic lesions scattered throughout both lobes of the liver. Marked ascites in the abdomen and pelvis. Prominent lymph nodes in the portal venous space. Small metastasis in both lung bases. Oncology consulted. Patient has follow-up with Dr. Godoy in the past. Oncology wishes to begin chemotherapy as soon as possible. Therapeutic and diagnostic paracentesis completed, fluid results pending. Ultrasound bilateral lower extremities negative for DVT. Continue Wallace wraps bilateral lower extremities. Patient will follow up with primary care physician within 1 week. Follow-up with oncology this week with plans for chemotherapy early next week. CMP in 1 week as outpatient to be followed by oncology. General: Alert, Oriented x3, Cooperative, No apparent distress HEENT: Atraumatic, PERRLA, EOMI, Normocephalic Oral: Dry Mucosa Neck: Supple, No JVD, Negative Carotid Bruits Lungs: Clear to auscultation, Normal air movement Cardiovascular: Regular rate, Regular Rhythm, Normal S1, Normal S2, No murmurs Abdomen: Severe abdominal distention/ascites Extremities: Bilateral lower extremity edema +3 Skin: No rashes, No breakdown Musculoskeletal: No Tenderness to Palpation of Joints or Extremities Lymphatic: No Cervical, Supraclavicular, or Inguinal Adenopathy Neurological: Cranial nerves II-XII grossly intact, Neuro grossly intact Psych/Mental Status: Normal Affect, Appropriate Patient seen exam prior to discharge. Physical assessment as noted above. Patient stable for discharge home with close follow-up with oncology. This patient was seen by NATALIIA Miguel under the supervision of Dr. Torres. Patient Problems: Active and Suspected Problems Ascites (Acute) - Physical Exam Vital Signs Temp Pulse Resp BP Pulse Ox 97.8 F 100 20 H 152/86 H 98 04/15/18 12:20 04/15/18 12:20 04/15/18 12:20 04/15/18 12:20 04/15/18 12:20 Oxygen Delivery Method Room Air Weight: 192 lb 3.889 oz Body Mass Index (BMI) 27.2 Intake and Output for Last 24 Hours 04/13/18 04/14/18 04/15/18 23:59 23:59 23:59 Intake Total 360 / 360 3325 / 3325 Output Total 425 / 425 Balance 360 / 360 2900 / 2900 Laboratory Tests Past 24 Hrs 04/14/18 04/14/1818 11:50 11:50 12:25 WBC RBC Hgb Hct MCV MCH MCHC RDW RDW Differential Plt Count MPV Immature Gran % (Auto) Neut % (Auto) Lymph % (Auto) [place] % (Auto) Eos % (Auto) Baso % (Auto) Absolute Neuts (auto) Absolute Lymphs (auto) Total Counted Not Reportable Differential Comment COMMENT Hypochromasia Target Cells PT INR APTT Sodium 130 L Potassium 4.2 Chloride 99 Carbon Dioxide 25.0 Anion Gap 6 BUN 16 Creatinine 0.88 Estim Creat Clear Calc 101.39 Est GFR (MDRD) Af Amer 117 Est GFR (MDRD) Non-Af 97 BUN/Creatinine Ratio 18.3 Glucose 110 H Calcium 8.5 Total Bilirubin 3.30 H Direct Bilirubin 2.81 H AST 274 H ALT 118 H Alkaline Phosphatase 1858 H Total Protein 7.4 Albumin 2.3 L Globulin 5.1 H Albumin/Globulin Ratio Lipase 110 Urine Color Straw Urine Clarity Clear Urine pH 5.0 Ur Specific [place] 1.020 Urine Protein 30 H Urine Glucose (UA) Normal Urine Ketones Negative Urine Occult Blood Negative Urine Nitrite Negative Urine Bilirubin 3 H Urine Urobilinogen 4 H Ur Leukocyte Esterase 25 H Urine RBC 0 SEEN Urine WBC 0-5 SEEN Ur Squamous Epith Cells 0 SEEN Urine Bacteria RARE Hyaline Casts 0-5 SEEN Urine Mucus RARE Blood Type 04/15/18 04/15/18 04/15/18 06:20 06:20 06:20 WBC 7.1 RBC 4.11 L Hgb 11.6 L Hct 34.7 L MCV 84.4 MCH 28.2 MCHC 33.4 RDW 16.9 H RDW Differential 51.4 H Plt Count 295 MPV 10.4 Immature Gran % (Auto) 0.100 Neut % (Auto) 79.9 H Lymph % (Auto) 6.5 L [place] % (Auto) 11.4 H Eos % (Auto) 1.8 Baso % (Auto) 0.3 Absolute Neuts (auto) 5.7 Absolute Lymphs (auto) 0.46 L Total Counted Not Reportable Differential Comment SCANNED Hypochromasia 2+ Target Cells 1+ PT 18.2 H INR 1.5 APTT 45.6 H Sodium 132 L Potassium 4.7 Chloride 99 Carbon Dioxide 22.0 Anion Gap 11 BUN 20 H Creatinine 0.87 Estim Creat Clear Calc 102.55 Est GFR (MDRD) Af Amer 118 Est GFR (MDRD) Non-Af 98 BUN/Creatinine Ratio 23.0 H Glucose 94 Calcium 8.6 Total Bilirubin 3.20 H Direct Bilirubin AST 269 H ALT 124 H Alkaline Phosphatase 1783 H Total Protein 6.7 Albumin 2.0 L Globulin 4.7 H Albumin/Globulin Ratio 0.4 L Lipase Urine Color Urine Clarity Urine pH Ur Specific [place] Urine Protein Urine Glucose (UA) Urine Ketones Urine Occult Blood Urine Nitrite Urine Bilirubin Urine Urobilinogen Ur Leukocyte Esterase Urine RBC Urine WBC Ur Squamous Epith Cells Urine Bacteria Hyaline Casts Urine Mucus Blood Type 04/15/18 08:23 WBC RBC Hgb Hct MCV MCH MCHC RDW RDW Differential Plt Count MPV Immature Gran % (Auto) Neut % (Auto) Lymph % (Auto) [place] % (Auto) Eos % (Auto) Baso % (Auto) Absolute Neuts (auto) Absolute Lymphs (auto) Total Counted Differential Comment Hypochromasia Target Cells PT INR APTT Sodium Potassium Chloride Carbon Dioxide Anion Gap BUN Creatinine Estim Creat Clear Calc Est GFR (MDRD) Af Amer Est GFR (MDRD) Non-Af BUN/Creatinine Ratio Glucose Calcium Total Bilirubin Direct Bilirubin AST ALT Alkaline Phosphatase Total Protein Albumin Globulin Albumin/Globulin Ratio Lipase Urine Color Urine Clarity Urine pH Ur Specific [place] Urine Protein Urine Glucose (UA) Urine Ketones Urine Occult Blood Urine Nitrite Urine Bilirubin Urine Urobilinogen Ur Leukocyte Esterase Urine RBC Urine WBC Ur Squamous Epith Cells Urine Bacteria Hyaline Casts Urine Mucus Blood Type B POSITIVE Discharge Diet: No Restrictions Discharge Activity: Return to Normal Activity Call your doctor if you observe: Shortness of breath, Dizziness, Fainting spells, Chest pain Home Medications: Medications to take at Discharge Acetaminophen [Tylenol Extra Strength] 1,500 mg PO PRN PRN 04/14/18 Albuterol Sulfate [Ventolin Hfa] 2 puff IH Q4H PRN PRN 04/14/18 Citalopram [Celexa] 20 mg PO DAILY 04/14/18 Lisinopril 40 mg PO DAILY 04/14/18 Omeprazole 20 mg PO DAILY 04/14/18 Ondansetron [Zofran Odt] 8 mg PO Q8H PRN PRN 04/14/18 Oxycodone HCl/Acetaminophen [Oxycodon-Acetaminophen 7.5-325] 1 each PO Q4H PRN PRN 04/14/18 Furosemide 40 mg PO DAILY #30 tablet 04/15/18 Spironolactone 100 mg PO DAILY #30 tablet 04/15/18 Following Prescrptions Were Given to Patient: Furosemide 40 mg PO DAILY #30 tablet Spironolactone 100 mg PO DAILY #30 tablet Other Amb Orders: Comprehensive Metabolic Profil Location: Laboratory Primary Care Physician: Hannah Bryson NP-C [Primary Care Provider] - Please follow up with your Primary Care Physician in: 1 Week Please Follow Up With: James Godoy DO When: 2-3 days, call for appt. Disposition: Home Minutes spent on discharge:: 35 Patient Condition:: Fair Medical Necessity - Tobacco Use Smoking Status: Current every day smoker - 2 packs of cigarettes daily Tobacco Use: Cigarettes Meaningful Use Info Meaningful Use Diagnoses (Choose all that apply): None applicable <Francisco Torres - Last Filed: 04/15/18 14:44> Discharge Date and Diagnosis - Primary Discharge Diagnosis Active and Suspected Problems Abdominal swelling (Acute) Swelling of both lower extremities (Acute) Colon cancer metastasized to liver (Acute) Hospital Course and Treatment Imaging Results: 04/15/18 15:26 Paracentesis with US [US] Routine Operations: None Procedures: Paracentesis Summary of Care Provided: Patient seen and examined independently. Data reviewed. I agree with the above note by the nurse practitioner. The patient is a 52 year old M presents with increasing abdominal distention. Patient has a history of colon cancer. Presents to the emergency room was found to have some market ascites. Presumably, these ascites or malignant given the patient's known metastatic colon cancer. Patient has numerous hepatic metastases. Patient underwent a paracentesis today that removed 5670 cc of dark alex fluid. Patient also has lower extremity edema. Duplex of the lower extremities was negative. This is probably related with the etiology of his ascites which is due to the hepatic metastases. She will continue with Lasix as well as spironolactone to help with diuresis to help prevent further ascites. Is likely due to portal hypertension, not due to cirrhosis, but due to the hepatic metastases. [] - Physical Exam General: Alert, Cooperative, No apparent distress HEENT: Atraumatic, Normocephalic Oral: Moist Mucosa, No Gingival or Mucosal Lesions/ Ulcerations Lungs: Clear to auscultation, Normal air movement, No rhonchi, No wheeze Cardiovascular: Regular rate, Regular Rhythm, Normal S1, Normal S2, No murmurs Abdomen: Bowel Sounds Present, Soft, Non Tender, No Hepato-splenomegaly, Distended Extremities: No Calf Tenderness, Edema Vital Signs Temp Pulse Resp BP Pulse Ox 36.6 C 100 20 H 152/86 H 98 04/15/18 12:20 04/15/18 12:20 04/15/18 12:20 04/15/18 12:20 04/15/18 12:20 Oxygen Delivery Method Room Air Weight: 87.2 kg Body Mass Index (BMI) 27.2 Intake and Output for Last 24 Hours 04/13/18 04/14/18 04/15/18 23:59 23:59 23:59 Intake Total 360 / 360 3325 / 3325 Output Total 425 / 425 Balance 360 / 360 2900 / 2900 Laboratory Tests Past 24 Hrs 04/15/18 04/15/18 04/15/18 06:20 06:20 06:20 WBC 7.1 RBC 4.11 L Hgb 11.6 L Hct 34.7 L MCV 84.4 MCH 28.2 MCHC 33.4 RDW 16.9 H RDW Differential 51.4 H Plt Count 295 MPV 10.4 Immature Gran % (Auto) 0.100 Neut % (Auto) 79.9 H Lymph % (Auto) 6.5 L [place] % (Auto) 11.4 H Eos % (Auto) 1.8 Baso % (Auto) 0.3 Absolute Neuts (auto) 5.7 Absolute Lymphs (auto) 0.46 L Total Counted Not Reportable Differential Comment SCANNED Hypochromasia 2+ Target Cells 1+ PT 18.2 H INR 1.5 APTT 45.6 H Sodium 132 L Potassium 4.7 Chloride 99 Carbon Dioxide 22.0 Anion Gap 11 BUN 20 H Creatinine 0.87 Estim Creat Clear Calc 102.55 Est GFR (MDRD) Af Amer 118 Est GFR (MDRD) Non-Af 98 BUN/Creatinine Ratio 23.0 H Glucose 94 Calcium 8.6 Total Bilirubin 3.20 H AST 269 H ALT 124 H Alkaline Phosphatase 1783 H Total Protein 6.7 Albumin 2.0 L Globulin 4.7 H Albumin/Globulin Ratio 0.4 L Fluid Source Fluid Color Fluid Appearance Fluid pH Fluid WBC Fluid RBC Fluid Tot Cell Count Fl Pathologist Comment Fluid Glucose Fluid Total Protein Fluid LDH Fluid Comment 2 Miscellaneous Cytology Blood Type 04/15/18 04/15/18 04/15/18 08:23 13:10 13:10 WBC RBC Hgb Hct MCV MCH MCHC RDW RDW Differential Plt Count MPV Immature Gran % (Auto) Neut % (Auto) Lymph % (Auto) [place] % (Auto) Eos % (Auto) Baso % (Auto) Absolute Neuts (auto) Absolute Lymphs (auto) Total Counted Differential Comment Hypochromasia Target Cells PT INR APTT Sodium Potassium Chloride Carbon Dioxide Anion Gap BUN Creatinine Estim Creat Clear Calc Est GFR (MDRD) Af Amer Est GFR (MDRD) Non-Af BUN/Creatinine Ratio Glucose Calcium Total Bilirubin AST ALT Alkaline Phosphatase Total Protein Albumin Globulin Albumin/Globulin Ratio Fluid Source Fluid Color Fluid Appearance Fluid pH Pending Fluid WBC Fluid RBC Fluid Tot Cell Count Fl Pathologist Comment Fluid Glucose 109 H Fluid Total Protein 2.4 Fluid LDH 780 Fluid Comment 2 Miscellaneous Cytology Blood Type B POSITIVE 04/15/18 04/15/18 13:10 13:10 WBC RBC Hgb Hct MCV MCH MCHC RDW RDW Differential Plt Count MPV Immature Gran % (Auto) Neut % (Auto) Lymph % (Auto) [place] % (Auto) Eos % (Auto) Baso % (Auto) Absolute Neuts (auto) Absolute Lymphs (auto) Total Counted Differential Comment Hypochromasia Target Cells PT INR APTT Sodium Potassium Chloride Carbon Dioxide Anion Gap BUN Creatinine Estim Creat Clear Calc Est GFR (MDRD) Af Amer Est GFR (MDRD) Non-Af BUN/Creatinine Ratio Glucose Calcium Total Bilirubin AST ALT Alkaline Phosphatase Total Protein Albumin Globulin Albumin/Globulin Ratio Fluid Source Pending Fluid Color Pending Fluid Appearance Pending Fluid pH Fluid WBC Pending Fluid RBC Pending Fluid Tot Cell Count Pending Fl Pathologist Comment Pending Fluid Glucose Fluid Total Protein Fluid LDH Fluid Comment 2 Pending Miscellaneous Cytology Pending Blood Type Medical Necessity - Tobacco Use Smoking Status: Current every day smoker Meaningful Use Info Meaningful Use Diagnoses (Choose all that apply): None applicable Code Visit OBSV E&M: 17832 Observation care discharge
--- NOTE | 2018-04-15 12:44 | DS.PCM_ITS ---
<Jaylin Elkins - Last Filed: 04/15/18 14:37> Discharge Date and Diagnosis - Problem List Patient Problems: Active and Suspected Problems Ascites (Acute) Date of Admission: 04/14/18 Date of Discharge: 04/15/18 - Primary Discharge Diagnosis Active and Suspected Problems 1. Metastatic colon cancer 2. Suspected malignant ascites secondary to #1 status post paracentesis 3. Hyperbilirubinemia-secondary to #1. 4. 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 Hospital Course and Treatment Imaging Results: Diagnostic Data Abdomen/Pelvis CT 04/14/18 12:54 IMPRESSION: There is marked enlargement of the liver with innumerable metastatic lesions scattered throughout both lobes of the liver. The liver is markedly narrowing the upper aspect of the IVC, possibly accounting for the leg swelling and soft tissue edema seen in the upper aspects of both legs on the CT. There is marked ascites in the abdomen and pelvis. There are prominent lymph nodes in the portal venous space. There are small lymph nodes scattered along the retroperitoneum. There are small metastases in both lung bases. Electronically Signed: Hallie Kapadia MD at 14:02 EDT Tel Direct: [phone], Service support , Chest CT 04/14/18 12:54 IMPRESSION: Bilateral multiple pulmonary nodules in keeping with metastatic disease. Marked degree of hepatomegaly with perisplenic and perigastric hepatic fluid. Diffuse hepatic metastasis. Electronically Signed: Flakito Justice MD at 13:49 EDT Tel [phone], Service support , Dr. Godoy- Oncology Operations: None Procedures: Paracentesis Summary of Care Provided: The patient is a 52 year old M admitted 1029 due to abdominal swelling and lower extremity swelling. Patient has a history of metastatic colon cancer status post colon resection and chemotherapy/radiation about 3-1/2 years ago. He aborted treatment and discontinued following with oncology. His other past medical history includes hypertension, GERD, depression, tobacco dependence. CT of chest showed bilateral multiple pulmonary nodules consistent with metastatic disease. Marked degree of hepatomegaly with perisplenic and perigastric hepatic fluid. Diffuse hepatic metastasis. CT of abdomen showed enlargement of liver with innumerable metastatic lesions scattered throughout both lobes of the live r. Marked ascites in the abdomen and pelvis. Prominent lymph nodes in the portal venous space. Small metastasis in both lung bases. Oncology consulted. Patient has follow-up with Dr. Godoy in the past. Oncology wishes to begin chemotherapy as soon as possible. Therapeutic and diagnostic paracentesis completed, fluid results pending. Ultrasound bilateral lower extremities negative for DVT. Continue Wallace wraps bilateral lower extremities. Patient will follow up with primary care physician within 1 week. Follow-up with oncology this week with plans for chemotherapy early next week. CMP in 1 week as outpatient to be followed by oncology. General: Alert, Oriented x3, Cooperative, No apparent distress HEENT: Atraumatic, PERRLA, EOMI, Normocephalic Oral: Dry Mucosa Neck: Supple, No JVD, Negative Carotid Bruits Lungs: Clear to auscultation, Normal air movement Cardiovascular: Regular rate, Regular Rhythm, Normal S1, Normal S2, No murmurs Abdomen: Severe abdominal distention/ascites Extremities: Bilateral lower extremity edema +3 Skin: No rashes, No breakdown Musculoskeletal: No Tenderness to Palpation of Joints or Extremities Lymphatic: No Cervical, Supraclavicular, or Inguinal Adenopathy Neurological: Cranial nerves II-XII grossly intact, Neuro grossly intact Psych/Mental Status: Normal Affect, Appropriate Patient seen exam prior to discharge. Physical assessment as noted above. Patient stable for discharge home with close follow-up with oncology. This patient was seen by NATALIIA Miguel under the supervision of Dr. Torres. Patient Problems: Active and Suspected Problems Ascites (Acute) - Physical Exam Vital Signs Temp Pulse Resp BP Pulse Ox 97.8 F 100 20 H 152/86 H 98 04/15/18 12:20 04/15/18 12:20 04/15/18 12:20 04/15/18 12:20 04/15/18 12:20 Oxygen Delivery Method Room Air Weight: 192 lb 3.889 oz Body Mass Index (BMI) 27.2 Intake and Output for Last 24 Hours 04/13/18 04/14/18 04/15/18 23:59 23:59 23:59 Intake Total 360 / 360 3325 / 3325 Output Total 425 / 425 Balance 360 / 360 2900 / 2900 Laboratory Tests Past 24 Hrs 04/14/18 04/14/1804/14/18 11:50 11:50 12:25 WBC RBC Hgb Hct MCV MCH MCHC RDW RDW Differential Plt Count MPV Immature Gran % (Auto) Neut % (Auto) Lymph % (Auto) Hubbard % (Auto) Eos % (Auto) Baso % (Auto) Absolute Neuts (auto) Absolute Lymphs (auto) Total Counted Not Reportable Differential Comment COMMENT Hypochromasia Target Cells PT INR APTT Sodium 130 L Potassium 4.2 Chloride 99 Carbon Dioxide 25.0 Anion Gap 6 BUN 16 Creatinine 0.88 Estim Creat Clear Calc 101.39 Est GFR (MDRD) Af Amer 117 Est GFR (MDRD) Non-Af 97 BUN/Creatinine Ratio 18.3 Glucose 110 H Calcium 8.5 Total Bilirubin 3.30 H Direct Bilirubin 2.81 H AST 274 H ALT 118 H Alkaline Phosphatase 1858 H Total Protein 7.4 Albumin 2.3 L Globulin 5.1 H Albumin/Globulin Ratio Lipase 110 Urine Color Straw Urine Clarity Clear Urine pH 5.0 Ur Specific [place] 1.020 Urine Protein 30 H Urine Glucose (UA) Normal Urine Ketones Negative Urine Occult Blood Negative Urine Nitrite Negative Urine Bilirubin 3 H Urine Urobilinogen 4 H Ur Leukocyte Esterase 25 H Urine RBC 0 SEEN Urine WBC 0-5 SEEN Ur Squamous Epith Cells 0 SEEN Urine Bacteria RARE Hyaline Casts 0-5 SEEN Urine Mucus RARE Blood Type 04/15/18 04/15/18 04/15/18 06:20 06:20 06:20 WBC 7.1 RBC 4.11 L Hgb 11.6 L Hct 34.7 L MCV 84.4 MCH 28.2 MCHC 33.4 RDW 16.9 H RDW Differential 51.4 H Plt Count 295 MPV 10.4 Immature Gran % (Auto) 0.100 Neut % (Auto) 79.9 H Lymph % (Auto) 6.5 L Hubbard % (Auto) 11.4 H Eos % (Auto) 1.8 Baso % (Auto) 0.3 Absolute Neuts (auto) 5.7 Absolute Lymphs (auto) 0.46 L Total Counted Not Reportable Differential Comment SCANNED Hypochromasia 2+ Target Cells 1+ PT 18.2 H INR 1.5 APTT 45.6 H Sodium 132 L Potassium 4.7 Chloride 99 Carbon Dioxide 22.0 Anion Gap 11 BUN 20 H Creatinine 0.87 Estim Creat Clear Calc 102.55 Est GFR (MDRD) Af Amer 118 Est GFR (MDRD) Non-Af 98 BUN/Creatinine Ratio 23.0 H Glucose 94 Calcium 8.6 Total Bilirubin 3.20 H Direct Bilirubin AST 269 H ALT 124 H Alkaline Phosphatase 1783 H Total Protein 6.7 Albumin 2.0 L Globulin 4.7 H Albumin/Globulin Ratio 0.4 L Lipase Urine Color Urine Clarity Urine pH Ur Specific [place] Urine Protein Urine Glucose (UA) Urine Ketones Urine Occult Blood Urine Nitrite Urine Bilirubin Urine Urobilinogen Ur Leukocyte Esterase Urine RBC Urine WBC Ur Squamous Epith Cells Urine Bacteria Hyaline Casts Urine Mucus Blood Type 04/15/18 08:23 WBC RBC Hgb Hct MCV MCH MCHC RDW RDW Differential Plt Count MPV Immature Gran % (Auto) Neut % (Auto) Lymph % (Auto) Hubbard % (Auto) Eos % (Auto) Baso % (Auto) Absolute Neuts (auto) Absolute Lymphs (auto) Total Counted Differential Comment Hypochromasia Target Cells PT INR APTT Sodium Potassium Chloride Carbon Dioxide Anion Gap BUN Creatinine Estim Creat Clear Calc Est GFR (MDRD) Af Amer Est GFR (MDRD) Non-Af BUN/Creatinine Ratio Glucose Calcium Total Bilirubin Direct Bilirubin AST ALT Alkaline Phosphatase Total Protein Albumin Globulin Albumin/Globulin Ratio Lipase Urine Color Urine Clarity Urine pH Ur Specific [place] Urine Protein Urine Glucose (UA) Urine Ketones Urine Occult Blood Urine Nitrite Urine Bilirubin Urine Urobilinogen Ur Leukocyte Esterase Urine RBC Urine WBC Ur Squamous Epith Cells Urine Bacteria Hyaline Casts Urine Mucus Blood Type B POSITIVE Discharge Diet: No Restrictions Discharge Activity: Return to Normal Activity Call your doctor if you observe: Shortness of breath, Dizziness, Fainting spells, Chest pain Home Medications: Medications to take at Discharge Acetaminophen [Tylenol Extra Strength] 1,500 mg PO PRN PRN 04/14/18 Albuterol Sulfate [Ventolin Hfa] 2 puff IH Q4H PRN PRN 04/14/18 Citalopram [Celexa] 20 mg PO DAILY 04/14/18 Lisinopril 40 mg PO DAILY 04/14/18 Omeprazole 20 mg PO DAILY 04/14/18 Ondansetron [Zofran Odt] 8 mg PO Q8H PRN PRN 04/14/18 Oxycodone HCl/Acetaminophen [Oxycodon-Acetaminophen 7.5-325] 1 each PO Q4H PRN PRN 04/14/18 Furosemide 40 mg PO DAILY #30 tablet 04/15/18 Spironolactone 100 mg PO DAILY #30 tablet 04/15/18 Following Prescrptions Were Given to Patient: Furosemide 40 mg PO DAILY #30 tablet Spironolactone 100 mg PO DAILY #30 tablet Other Amb Orders: Comprehensive Metabolic Profil Location: Laboratory Primary Care Physician: Hannah Bryson NP-C [Primary Care Provider] - Please follow up with your Primary Care Physician in: 1 Week Please Follow Up With: James Godoy DO When: 2-3 days, call for appt. Disposition: Home Minutes spent on discharge:: 35 Patient Condition:: Fair Medical Necessity - Tobacco Use Smoking Status: Current every day smoker - 2 packs of cigarettes daily Tobacco Use: Cigarettes Meaningful Use Info Meaningful Use Diagnoses (Choose all that apply): None applicable <Francisco Torres - Last Filed: 04/15/18 14:44> Discharge Date and Diagnosis - Primary Discharge Diagnosis Active and Suspected Problems Abdominal swelling (Acute) Swelling of both lower extremities (Acute) Colon cancer metastasized to liver (Acute) Hospital Course and Treatment Imaging Results: 04/15/18 15:26 Paracentesis with US [US] Routine Operations: None Procedures: Paracentesis Summary of Care Provided: Patient seen and examined independently. Data reviewed. I agree with the above note by the nurse practitioner. The patient is a 52 year old M presents with increasing abdominal distention. Patient has a history of colon cancer. Presents to the emergency room was found to have some market ascites. Presumably, these ascites or malignant given the patient's known metastatic colon cancer. Patient has numerous hepatic metastases. Patient underwent a paracentesis today that removed 5670 cc of dark alex fluid. Patient also has lower extremity edema. Duplex of the lower extremities was negative. This is probably related with the etiology of his a scites which is due to the hepatic metastases. She will continue with Lasix as well as spironolactone to help with diuresis to help prevent further ascites. Is likely due to portal hypertension, not due to cirrhosis, but due to the hepatic metastases. [] - Physical Exam General: Alert, Cooperative, No apparent distress HEENT: Atraumatic, Normocephalic Oral: Moist Mucosa, No Gingival or Mucosal Lesions/ Ulcerations Lungs: Clear to auscultation, Normal air movement, No rhonchi, No wheeze Cardiovascular: Regular rate, Regular Rhythm, Normal S1, Normal S2, No murmurs Abdomen: Bowel Sounds Present, Soft, Non Tender, No Hepato-splenomegaly, Distended Extremities: No Calf Tenderness, Edema Vital Signs Temp Pulse Resp BP Pulse Ox 36.6 C 100 20 H 152/86 H 98 04/15/18 12:20 04/15/18 12:20 04/15/18 12:20 04/15/18 12:20 04/15/18 12:20 Oxygen Delivery Method Room Air Weight: 87.2 kg Body Mass Index (BMI) 27.2 Intake and Output for Last 24 Hours 04/13/18 04/14/18 04/15/18 23:59 23:59 23:59 Intake Total 360 / 360 3325 / 3325 Output Total 425 / 425 Balance 360 / 360 2900 / 2900 Laboratory Tests Past 24 Hrs 04/15/18 04/15/18 04/15/18 06:20 06:20 06:20 WBC 7.1 RBC 4.11 L Hgb 11.6 L Hct 34.7 L MCV 84.4 MCH 28.2 MCHC 33.4 RDW 16.9 H RDW Differential 51.4 H Plt Count 295 MPV 10.4 Immature Gran % (Auto) 0.100 Neut % (Auto) 79.9 H Lymph % (Auto) 6.5 L Hubbard % (Auto) 11.4 H Eos % (Auto) 1.8 Baso % (Auto) 0.3 Absolute Neuts (auto) 5.7 Absolute Lymphs (auto) 0.46 L Total Counted Not Reportable Differential Comment SCANNED Hypochromasia 2+ Target Cells 1+ PT 18.2 H INR 1.5 APTT 45.6 H Sodium 132 L Potassium 4.7 Chloride 99 Carbon Dioxide 22.0 Anion Gap 11 BUN 20 H Creatinine 0.87 Estim Creat Clear Calc 102.55 Est GFR (MDRD) Af Amer 118 Est GFR (MDRD) Non-Af 98 BUN/Creatinine Ratio 23.0 H Glucose 94 Calcium 8.6 Total Bilirubin 3.20 H AST 269 H ALT 124 H Alkaline Phosphatase 1783 H Total Protein 6.7 Albumin 2.0 L Globulin 4.7 H Albumin/Globulin Ratio 0.4 L Fluid Source Fluid Color Fluid Appearance Fluid pH Fluid WBC Fluid RBC Fluid Tot Cell Count Fl Pathologist Comment Fluid Glucose Fluid Total Protein Fluid LDH Fluid Comment 2 Miscellaneous Cytology Blood Type 04/15/18 04/15/18 04/15/18 08:23 13:10 13:10 WBC RBC Hgb Hct MCV MCH MCHC RDW RDW Differential Plt Count MPV Immature Gran % (Auto) Neut % (Auto) Lymph % (Auto) Hubbard % (Auto) Eos % (Auto) Baso % (Auto) Absolute Neuts (auto) Absolute Lymphs (auto) Total Counted Differential Comment Hypochromasia Target Cells PT INR APTT Sodium Potassium Chloride Carbon Dioxide Anion Gap BUN Creatinine Estim Creat Clear Calc Est GFR (MDRD) Af Amer Est GFR (MDRD) Non-Af BUN/Creatinine Ratio Glucose Calcium Total Bilirubin AST ALT Alkaline Phosphatase Total Protein Albumin Globulin Albumin/Globulin Ratio Fluid Source Fluid Color Fluid Appearance Fluid pH Pending Fluid WBC Fluid RBC Fluid Tot Cell Count Fl Pathologist Comment Fluid Glucose 109 H Fluid Total Protein 2.4 Fluid LDH 780 Fluid Comment 2 Miscellaneous Cytology Blood Type B POSITIVE 04/15/18 04/15/18 13:10 13:10 WBC RBC Hgb Hct MCV MCH MCHC RDW RDW Differential Plt Count MPV Immature Gran % (Auto) Neut % (Auto) Lymph % (Auto) Hubbard % (Auto) Eos % (Auto) Baso % (Auto) Absolute Neuts (auto) Absolute Lymphs (auto) Total Counted Differential Comment Hypochromasia Target Cells PT INR APTT Sodium Potassium Chloride Carbon Dioxide Anion Gap BUN Creatinine Estim Creat Clear Calc Est GFR (MDRD) Af Amer Est GFR (MDRD) Non-Af BUN/Creatinine Ratio Glucose Calcium Total Bilirubin AST ALT Alkaline Phosphatase Total Protein Albumin Globulin Albumin/Globulin Ratio Fluid Source Pending Fluid Color Pending Fluid Appearance Pending Fluid pH Fluid WBC Pending Fluid RBC Pending Fluid Tot Cell Count Pending Fl Pathologist Comment Pending Fluid Glucose Fluid Total Protein Fluid LDH Fluid Comment 2 Pending Miscellaneous Cytology Pending Blood Type Medical Necessity - Tobacco Use Smoking Status: Current every day smoker Meaningful Use Info Meaningful Use Diagnoses (Choose all that apply): None applicable Code Visit OBSV E&M: 66330 Observation care discharge
--- NOTE | 2018-04-15 13:23 | CASEMGMT ---
Patient was interested in advance directives. He wanted to wait until his significant other was present which she was not. He is having a procedure done at 1p and he wants to leave shortly thereafter. JUNI gave patient the documents and the pamphlet for the [facility] Social Work program. JUNI explained he could call the number on the pamphlet and schedule an appt to complete the documents with JUNI. Ebonie RUSSELL MSW
[2018-04-15 13:59] LABS: Cytology, Body Fluid / CSF SEE PATHOLOGY REPORT
[2018-04-15 14:36] LABS: Glucose, Body Fluid 109 mg/dL (40-70); LDH,Body Fluid 780 Units/l (Not Establ.); Protein, Body Fluid 2.4 g/dL (Not Establ.)
[2018-04-15 14:43] LABS: Body Fluid Mononuclear WBC # 0.235 10^3/uL; Body Fluid Mononuclear WBC % 44.4 %; Body Fluid Polynuclear WBC # 0.294 10^3/uL; Body Fluid Polynuclear WBC % 55.6 %; Body Fluid Total Cells Counted 0.546 10^3/ul; White Blood Count/Body Fluid 0.529 10^3/uL
[2018-04-15] MEDS: Furosemide 40 MG Tablet PO (14:54)
[2018-04-15] MEDS: Spironolactone 50 MG Tablet 100 MG PO (14:54)
[2018-04-15 14:57] LABS: Auto B Fluid Analyzer BKGD Ct COUNTS W/IN LIMITS (W/IN LIMITS); Lymphocytes 10 %; Macrophages 15 %; Monocytes 55 %; Neutrophil (Segs) 20 %
[2018-04-15 14:58] LABS: Appearance/Body Fluid SL CLDY; Body Fluid QC Type(s) BF1Q; Color/Body Fluid YELLOW; Source- Body Fluid OTHER
--- NOTE | 2018-04-15 15:26 | US_ITS ---
PROCEDURE: Ultrasound guided paracentesis. DATE OF EXAMINATION: April 15, 2018.. INDICATION: Male, 52 years old. Ascites. PHYSICIAN: Flakito Justice M.D. TECHNIQUE: The risks, benefits, and alternatives to the procedure were explained to the patient. The specific risks of bleeding, infection, and damage to bowel were detailed and accepted. Witnessed informed consent was obtained. The abdomen was ultrasonographically surveyed. An appropriate pocket of fluid was identified at the right lower quadrant. The skin were cleaned and prepped in the usual sterile fashion. Using ultrasound guidance, the peritoneal cavity was accessed with a 5-Pakistani paracentesis needle/catheter system. The trocar was removed. A total of 5670 ml of dark alex-colored were removed from the peritoneal cavity. A 120 mL sample was sent to the laboratory. The catheter was removed and a sterile dressing was applied. The procedure was well tolerated. US/Paracentesis with US IMPRESSION: Ultrasound guided paracentesis. Electronically Signed: Flakito Justice MD at 14:16 EDT Tel [phone], Service support ,
[2018-04-15] MEDS: Albumin Human 25% (100 mL) 25 GM/100 ML BAG IV ×2 (16:02→17:42)
[2018-04-16 15:29] LABS: Pathologist Comment/Body Fluid Reviewed
[2018-04-18 12:41] LABS: pH, Body Fluid 11254 7.4 (Not Estab.)
--- NOTE | 2018-04-18 14:53 | CASEMGMT ---
BRITTANY RAYA DC phone call. Call attempted, no answer
== END 2018-04-15 19:40 | disposition home or self-care (01) | DRG 281 ==
LOC: ED 11:36 → PCU 04-15 06:56
PROVIDERS: Admitting Provider Student in an Organized Health Care Education/Training Program; Emergency Provider Emergency Medicine; Family Provider Nurse Practitioner Family; PCP Nurse Practitioner Family
DX: C78.7 Secondary malignant neoplasm of liver and intrahepatic bile duct (principal); R18.0 Malignant ascites; I87.1 Compression of vein; E80.6 Other disorders of bilirubin metabolism; C18.9 Malignant neoplasm of colon, unspecified; K75.9 Inflammatory liver disease, unspecified; F17.210 Nicotine dependence, cigarettes, uncomplicated; I10 Essential (primary) hypertension; Z90.49 Acquired absence of other specified parts of digestive tract; Z92.21 Personal history of antineoplastic chemotherapy; Z92.3 Personal history of irradiation; K21.9 Gastro-esophageal reflux disease without esophagitis; F32.9 Major depressive disorder, single episode, unspecified; Z79.899 Other long term (current) drug therapy; R91.8 Other nonspecific abnormal finding of lung field
CPT/HCPCS: 36415; 36430; 49083; 71260; 74177; 80048; 80053; 80076; 81001; 81002; 82945; 83615; 83690; 83986; 84157; 85025; 85610; 85730; 86644; 86900; 88108; 88305; 88313; 89050; 93005; 93970; 96361; 96365; 96366; 96375; 97802; 99218; 99282; J7030; J7040; P9017; P9047; Q9967; A4216; G0378; J2405

== ENCOUNTER 2018-04-23 10:35 | Inpatient (IN) | payer MEDICAID, SELFPAY ==
[2018-04-23] VITALS (11 sets, daily range): BP systolic 112–126; BP diastolic 65–88; PULSE 90–105; RESP 18–24; TEMP 36.3–36.8; O2SAT 93–97; BMI 25.8; BMI 26.7
--- NOTE | 2018-04-23 11:04 | ED.VISSUMM ---
- ER Visit Summary Date of Service: 04/23/18 Chief Complaint: Bilateral leg swelling History of Present Illness: The patient is a 52 M history of both throat, neck, colon CA with liver metastases. Today he was going to undergo an outpatient abdominal paracentesis in a sitting down here for evaluation. Family states that he has had leg swelling for at least 3 weeks if not longer. 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 He states he has pain in both legs. Physical Examination: Vital signs stable afebrile. Initial blood pressure 112/65. H EENT exam dry mucous membranes. Neck his cervical lymphadenopathy from his cancer. Trachea midline. Lungs clear bilaterally. Diminished in the bases. Heart regular rhythm no murmur. Abdomen taut and distended from ascites. Extremities he has 3+ pitting edema both lower extremities equal and symmetrical. He has bruising both lower legs. Neurologically is awake. He is alert he is answering questions. Skin he has bruising. He is jaundiced. He has scleral icterus. Test Results: None. Electrolytes show sodium of 123 significant lower than his baseline. Potassium of 5.8. CO2 is 20. BUN is 68 and creatinine 3.22 which are acute renal insufficiency. Also dehydration. Emergency Department Course and Treatment: Patient treated with IV morphine and Zofran. Liter normal saline for his hyponatremia and dehydration. Treatment Plan: Did speak to Dr. aJmes Godoy the patient's oncologist. Spoke with social psychologist for palliative care consultation. Hospitalist on page for admission. Pending abdominal paracentesis to remove ascites. Disposition: Admission Impression: History of colon CA with liver metastases and throat CA with metastases Acute severe dehydration Acute hyperkalemia Acute hyponatremia Chronic anemia. This note was generated with Upptalk dictation software. It may contain incorrect words, spelling, and punctuation that were not noted in review of the chart prior to signing ED Disposition - Plan for ED Patient: Chief Complaint: Edema Referrals: Hannah Bryson NP-C [Primary Care Provider] -
--- NOTE | 2018-04-23 11:17 | ED.DCSUM_ITS ---
- ER Visit Summary Date of Service: 04/23/18 Chief Complaint: Bilateral leg swelling History of Present Illness: The patient is a 52 M history of both throat, neck, colon CA with liver metastases. Today he was going to undergo an outpatient abdominal paracentesis in a sitting down here for evaluation. Family states that he has had leg swelling for at least 3 weeks if not longer. 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 He states he has pain in both legs. Physical Examination: Vital signs stable afebrile. Initial blood pressure 112/65. H EENT exam dry mucous membranes. Neck his cervical lymphadenopathy from his cancer. Trachea midline. Lungs clear bilaterally. Diminished in the bases. Heart regular rhythm no murmur. Abdomen taut and distended from ascites. Extremities he has 3+ pitting edema both lower extremities equal and symmetrical. He has bruising both lower legs. Neurologically is awake. He is alert he is answering questions. Skin he has bruising. He is jaundiced. He has scleral icterus. Test Results: None. Electrolytes show sodium of 123 significant lower than his baseline. Potassium of 5.8. CO2 is 20. BUN is 68 and creatinine 3.22 which are acute renal insufficiency. Also dehydration. Emergency Department Course and Treatment: Patient treated with IV morphine and Zofran. Liter normal saline for his hyponatremia and dehydration. Treatment Plan: Did speak to Dr. James Godoy the patient's oncologist. Spoke with social work professor for palliative care consultation. Hospitalist on page for admission. Pending abdominal paracentesis to remove ascites. Disposition: Admission Impression: History of colon CA with liver metastases and throat CA with metastases Acute severe dehydration Acute hyperkalemia Acute hyponatremia Chronic anemia. This note was generated with g2One dictation software. It may contain incorrect words, spelling, and punctuation that were not noted in review of the chart prior to signing ED Disposition - Plan for ED Patient: Chief Complaint: Edema Referrals: Hannah Bryson NP-C [Primary Care Provider] -
--- NOTE | 2018-04-23 11:22 | ED.RN ---
CASE MANAGMENT CALLED REGARDING PT AND INFORMATION ABOUT HOSPICE AND PALLATIVE CARE
[2018-04-23] MEDS: morphine 8 MG/ML Syringe IV (11:29)
[2018-04-23] MEDS: Ondansetron 4 MG/2 ML Vial IV (11:30)
--- NOTE | 2018-04-23 11:38 | CM.ED ---
Social Work Note Referral from Dr. Garner regarding palliative vs. hospice. Face to face with the pt, his significant other, Susi and daughter. Pt is in significant pain and struggling to remain awake. Educate pt and family to palliative care vs. hospice care. Pt reports that he does know palliative is with hospice. Upon further explanation, family expresses interest in talking with palliative care. Educational information to take home is provided. Referral for palliative care consult faxed to [facility]. No further needs at this time. Pt and family made aware that SW is available. PLAN: Palliative Care Referral for symptom management through [facility]. Jaylin Sellers, [employer] MEMBER, [employer]
[2018-04-23 11:52] LABS: Absolute Lymphocyte Count 1.12 X10^3/ul (0.83-4.51); Eosinophil# 0.01 X10^3/uL; Eosinophils% 0.1 % (0-5); Hematocrit 35.8 % (40-54); Hemoglobin 11.9 g/dl (13.0-16.5); Lymphocyte # 1.12 X10^3/ul (4.0); Lymphocyte % 10.3 % (19-41); Mean Corp Hgb Conc 33.2 g/gl (32-36); Mean Corpuscular Hgb 27.8 pg (27.0-32.0); Mean Corpuscular Volume 83.6 fL (80-94); Mean Platelet Vol. 11.1 fl (6.2-12.0); Monocyte# 0.63 X10^3/uL; Monocyte% 5.8 % (0-10); Neutrophil # 9.04 X10^3/uL (2.7-7.7); Neutrophil % 83.5 % (47-70); Platelet Count 262 K/mm3 (150-450); RBC Distribution Width CV 17.2 % (11.6-14.6); RBC Distribution Width SD 51.4 fl (35.1-43.9); Red Blood Count 4.28 M/mm3 (4.6-6.2); White Blood Count 10.8 K/mm3 (4.4-11.0)
[2018-04-23 11:53] LABS: Differential Indicated SCAN CRITERIA MET; POSITIVE COUNT NO; POSITIVE DIFFERENTIAL NO; POSITIVE MORPHOLOGY YES
[2018-04-23 12:02] LABS: Anion Gap 13 (5-15); BUN 68 mg/dL (7-18); BUN/Creat Ratio 21.1 RATIO (10-20); Calcium,Total 8.5 mg/dL (8.5-10.1); Chloride 90 mmol/L (98-107); Creatinine, Serum 3.22 mg/dL (0.70-1.30); EST Glomerular Filtration Rate 22 mL/min (>60); Est Glom Filt Rate - Afr Amer 26 mL/min (>60); Estimated Creatinine Clearance 27.71 ml/min; Glucose 96 mg/dL (74-106); Potassium 5.8 mmol/L (3.5-5.1); Sodium Level 123 mmol/L (136-145)
[2018-04-23] MEDS: 0.9% Normal Saline 1,000 ML 999 ML IV (12:32)
--- NOTE | 2018-04-23 12:49 | HP.PCM_ITS ---
History of Present Illness Date of Admission: 04/23/18 Chief Complaint: Pain and swelling in lower extremities The patient is a 52 year old M with a history of throat, neck and colon cancer with liver metastasis. He also has a history of hypertension. He was admitted through the ED on 04/23/2018 with a complaint of painful bilateral lower extremity swelling. According to patient, he was scheduled to undergo outpatient abdominal paracentesis in the [facility] radiology units. Whilst a complaint of the severe pain in his lower extremities and so he was brought to the ED. Patient was recently diagnosed with cancer with metastasis and has been following up with Dr. Godoy. He states he was told they could start chemotherapy on 04 May. Complaint of severe abdominal swelling and severe fatigue. He admitted to jaundice but denied any nausea vomiting. Patient was confused and most of the history was taken from his significant other and her knees. Was very drowsy throughout the review. Blood pressure was noted to be 112/65 in the ED and respiratory rate was 19 with temperature of 97.3. Chemistry was significant for sodium of 123 and potassium of 5.8 with bicarb of 20. Creatinine was 3.2 to the baseline of less than 1 from a week ago. CBC showed hemoglobin of 11.9 and no leukocytosis and platelets of 262. Is been admitted to be managed for metastatic cancer with acute metabolic encephalopathy likely due to hepatic encephalopathy as well as hyponatremia and hyperkalemia. [] Past Medical History Allergies shellfish derived Allergy (Verified 04/23/18 10:36) Itching Home Medications: Ambulatory Orders Medication Instructions Recorded Albuterol Sulfate [Ventolin Hfa] 2 puff IH Q4H PRN PRN 04/14/18 Citalopram [Celexa] 20 mg PO DAILY 04/14/18 Lisinopril 20 mg PO DAILY 04/14/18 Omeprazole 20 mg PO DAILY 04/14/18 Ondansetron [Zofran Odt] 8 mg PO Q8H PRN PRN 04/14/18 Furosemide [Lasix] 20 mg PO DAILY 04/23/18 Oxycodone [Oxyir] 5 - 10 mg PO Q4H PRN PRN 04/23/18 Spironolactone 100 mg PO DAILY 04/23/18 Surgical History: - - hemicolectomy Psychiatric History: No pertinent psych hx Lives: Spouse/ Significant Other Smoking Status: Current every day smoker - *Family History Maternal History Items: No pertinent history Paternal History Items: No pertinent history Review of Systems Constitutional: Reports: Anorexia, Malaise, Weakness, Fatigue. Denies: Fever Eyes: Denies: Blurred vision HEENT: Denies: Head Aches, Sinus Congestion, Sinus Drainage Cardiovascular: Denies: Chest Pain, Palpitations Respiratory: Denies: Cough, Shortness of Breath, Shortness of breath at rest, Sputum production Gastrointestinal: Reports: Abdominal Pain, - - Abdominal distention. Denies: Constipation, Diarrhea, Dyspepsia, Nausea, Melena, Vomiting Genitourinary: Denies: Dysuria Musculoskeletal: Reports: Leg Pain. Denies: Arm Pain, Back Pain, Joint Pain Skin: Reports: Jaundice. Denies: Rash, Wounds Neurological: Reports: Confusion. Denies: Balance problems Psychiatric: Denies: Anxiety, Depression, Homicidal Ideations, Suicidal Ideations Hematologic/ Lymphatic: Denies: Easy Bruising, Easy Bleeding VTE Information - Inpt Only VTE Present on Admission: No VTE Mechan Device Prophylaxis: SCD's - Physical Exam General: Confused, Lethargic, - - Patient is very weak, and confused, though he is able to respond to questions HEENT: Atraumatic, PERRLA, EOMI, Normocephalic, - - 3+ jaundice of conjuctivae and skin Oral: Dry Mucosa Neck: Supple, No JVD, Negative Carotid Bruits Lungs: Clear to auscultation, Normal air movement, No rhonchi, No wheeze, No rales Cardiovascular: Regular rate, Regular Rhythm, Normal S1, Normal S2, No murmurs Abdomen: Distended - positive fluid thrill. Unable to assess for hepatomegaly due to ascites Extremities: - - 3+ bilateral pitting pedal edema from foot up to knees; very tender to palpation. Skin: - - erythema and small weeping ulcers on lower extremities. Musculoskeletal: No Tenderness to Palpation of Joints or Extremities Lymphatic: No Cervical, Supraclavicular, or Inguinal Adenopathy Neurological: Cranial nerves II-XII grossly intact, - - positive asterixis; patient very lethargic. Psych/Mental Status: - - lethargic, Alert and oriented to time, place, person, mood and affect Vital Signs Temp Pulse Resp BP Pulse Ox 97.3 F L 99 24 H 124/88 H 94 11/07/18 10:36 04/23/18 12:19 04/23/18 12:19 04/23/18 12:19 04/23/18 12:19 Oxygen Delivery Method Room Air Weight: 180 lb Body Mass Index (BMI) 25.8 Laboratory Tests Past 24 Hrs 04/23/18 04/23/18 11:30 11:30 WBC 10.8 RBC 4.28 L Hgb 11.9 L Hct 35.8 L MCV 83.6 MCH 27.8 MCHC 33.2 RDW 17.2 H RDW Differential 51.4 H Plt Count 262 MPV 11.1 Immature Gran % (Auto) 0.300 Neut % (Auto) 83.5 H Lymph % (Auto) 10.3 L [place] % (Auto) 5.8 Eos % (Auto) 0.1 Baso % (Auto) 0.0 Absolute Neuts (auto) 9.0 H Absolute Lymphs (auto) 1.12 Total Counted Not Reportable Sodium 123 L Potassium 5.8 H Chloride 90 L Carbon Dioxide 20.0 L Anion Gap 13 BUN 68 H Creatinine 3.22 H Estim Creat Clear Calc 27.71 Est GFR (MDRD) Af Amer 26 L Est GFR (MDRD) Non-Af 22 L BUN/Creatinine Ratio 21.1 H Glucose 96 Calcium 8.5 Assessment/Plan All Active Problems Ascites (Acute) Abdominal swelling (Acute) Swelling of both lower extremities (Acute) Colon cancer metastasized to liver (Acute) 52 y/o male admitted with a complaint of painful LE swelling for the past few weeks 1. 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 * Has massive malignant ascites and came in for drainage and has associated lower extremity edema. * This is all due to the malignancy and patient was counseled so. * Admit to PCU with telemetry * Hydrate with IV fluids will be gentle with hydration on account of significant ascites and liver metastases. * Urgent oncology consulted. Patient was told that he could start oncology as soon as possible and actually has a port in the right subclavian region. However patient is a critically ill that I do not think he would last until the when he is supposed to start chemotherapy. Additionally, and this is palliative chemotherapy I really do not know how much of this cancer can be cured. * 2. Acute hepatic encephalopathy due to liver metastases * Patient is very to be jaundiced and has a positive hepatic flap * will check liver enzymes * check ammonia level * give lactulose * 3. Malignant ascites due to metastatic colon and lung cancer * Was due for therapeutic paracentesis but this was aborted on account of him not feeling well. * Per radiology staff, will need 2 units of FFP's before they can do paracentesis tomorrow if it still required. * will check coagulation panel and give 2 units of FFPs tomorrow morning * * 4. [place]: * Cr is 3.22; baseline is 0.87 from 2 weeks ago. * This may be hepato-renal syndrome from severe liver disease and severe ascites * should improve with administration of IVF and also with therapeutic paracentesis * 5. Hyponatremia: * Na is 123; likely due to fluid overload from ascites. * Will monitor with therapeutic paracentesis * will consult nephrology o/a of hyponatremia and [place] * 6. Hyperkalemia: K is 5.8. Will give kayexalate and monitor. He may also be suffering from some adrenal insufficiency in light of hyperkalemia and hyponatremia. 7. Non anion gap metabolic acidosis * Bicarb is 20 and anion gap is 13. Likely due to kidney impairment. * May possibly improve with treatment of [place] * 8. Hypertension: On lisinopril and spironolactone. Will hold lisinopril and spironolactone o/a of [place] and hyperkalemia 9. Depression: on citalopram DVT prophylaxis: SCDs Code status: DNRCCA * Patient, his significant other and his knees were counseled extensively about patient's very very poor prognosis. There were counseled about differences between full code, DNR CCA and DNR CCA. Patient elects to be DNRCCA * His significant other does not seem to have clear insight about the severity of his condition and sees that she wants him to get well so that he can be treated for the cancer. I explained to her that patient has stage IV metastatic liver and colon cancer and has deteriorated significantly within a week. He is very lethargic has hyperkalemia and hyponatremia and also has the severe lower extremity edema and is not able to do much for himself. I counseled him that the best option would be to consider palliative care which that was ready been counseled about by the ED doctor. Palliative care will be consulted and patient actually stated that if we did not think he would get what he would want to go home and be made comfortable. I counseled him that as an option he could discuss with palliative care when they reviewed him later today. Again, prognosis is very poor. * Total face to face time- 20 mins Code Visit Inpatient E&M: 13256 Init Hosp L3 Procedures: 74430 Advncd Care Plan 30 Min
--- NOTE | 2018-04-23 13:11 | NURSING ---
106 KORAM HYPERKALMIA, DEHYDRATION, HYPONATREMIA
--- NOTE | 2018-04-23 13:45 | CM.ED ---
Social Work Note Call from Tawanna with [facility] stating she received the referral, reached out to the pt's significant other and would be meeting with them tomorrow, April 24, to discuss palliative care services at their home at 1530. Will pass along to DEBBY Wharton MSW, DREW
[2018-04-23 14:35] LABS: International Normalized Ratio 1.6
[2018-04-23] MEDS: 0.9% Normal Saline 1,000 ML 75 ML IV (14:51)
[2018-04-23 14:54] LABS: AST(SGOT) 1137 U/L (15-37); Alanine Aminotransfer ALT/SGPT 575 U/L (16-61); Alkaline Phosphatase 1793 U/L (45-117)
[2018-04-23] MEDS: oxyCODONE 5 MG Tablet PO (15:32)
--- NOTE | 2018-04-23 15:34 | NURSING ---
this rn taking over care
--- NOTE | 2018-04-23 15:53 | CASEMGMT ---
RN said patient and his significant other want to meet with Palliative at [facility] tomorrow not their home. SW called Rosa at Palliative care and told her this information as well as patient's room number. They will meet with patient and family tomorrow at 330 at [facility]. RN also said patient wants to complete healthcare POA while here. SW went to patient's room and his significant other was present. Patient was sleeping. She woke him up and he wanted to do the documents. He was sitting on the side of the bed. He was sleepy and SW asked him twice if he wanted to do the documents right now as SW could come back tomorrow. He said he wanted to do them now. Healthcare POA was completed and copies were made. SW will check back tomorrow to see if he wants to do health care LW. SW also told them Palliative Care was notified of them wanting to meet at [facility] tomorrow. Ebonie CROWDER
[2018-04-23] MEDS: Lactulose 20 GM/30 ML UDC PO ×2 (16:51→22:35)
[2018-04-23 19:17] LABS: Albumin, Serum 2.1 g/dL (3.2-5.0); BUN 72 mg/dL (7-18); BUN/Creat Ratio 21.9 RATIO (10-20); Calcium,Total 7.8 mg/dL (8.5-10.1); Chloride 93 mmol/L (98-107); Creatinine, Serum 3.29 mg/dL (0.70-1.30); EST Glomerular Filtration Rate 21 mL/min (>60); Est Glom Filt Rate - Afr Amer 26 mL/min (>60); Estimated Creatinine Clearance 27.12 ml/min; Glucose 91 mg/dL (74-106); Phosphorus 7.9 mg/dL (2.5-4.9); Potassium 6.1 mmol/L (3.5-5.1); Sodium Level 124 mmol/L (136-145)
[2018-04-23 19:44] LABS: Acetaminophen (Tylenol) Level < 2.0 ug/mL (10.0-30.0)
[2018-04-23] MEDS: Sodium Polystyrene Sulfonate 15 GM/60 ML UDC 30 GM PO (20:05)
--- NOTE | 2018-04-23 23:25 | RAD_ITS ---
STUDY: X-RAY CHEST REASON FOR EXAM: Male, 52 years old. Short of breath TECHNIQUE: AP portable COMPARISON: None. FINDINGS: There is mild atelectasis at both lung bases.. There is no demonstrated pleural abnormality. Normal size heart. Normal mediastinum and lila. Normal visualized pulmonary arteries. Normal visualized aortic arch and descending thoracic aorta. Mediport catheter noted on the right with tip in the right atrium Dorsal spine demonstrates spondylosis. Normal visualized ribs, clavicles, and shoulders. There is no demonstrated abnormality of the visualized soft tissue structures of the upper abdomen. RAD/Chest 1 View (Portable) IMPRESSION: Mild bibasilar atelectasis Electronically Signed: Tu Glass MD at 23:41 EST , Service support ,
[2018-04-24] VITALS (10 sets, daily range): BP systolic 101–115; BP diastolic 57–66; PULSE 87–101; RESP 12–26; TEMP 36.4–36.7; O2SAT 94–98
[2018-04-24 02:55] LABS: Urine Sodium 11 mmol/L (Not Establ.)
[2018-04-24 03:00] LABS: Osmolality, Urine 400 mOsm/KG
[2018-04-24 06:02] LABS: International Normalized Ratio 1.8; Prothrombin Time (Protime)PT. 20.8 SECONDS (11.7-14.9)
[2018-04-24 06:38] LABS: Absolute Lymphocyte Count 0.37 X10^3/ul (0.83-4.51); Absolute Neutrophil Count 8.5 X10^3/uL (2.0-7.7); Eosinophil# 0.01 X10^3/uL; Eosinophils% 0.1 % (0-5); Hematocrit 34.7 % (40-54); Lymphocyte # 0.37 X10^3/ul (4.0); Lymphocyte % 3.8 % (19-41); Mean Corp Hgb Conc 34.6 g/gl (32-36); Mean Corpuscular Volume 81.1 fL (80-94); Mean Platelet Vol. 11.2 fl (6.2-12.0); Monocyte# 0.77 X10^3/uL; Monocyte% 7.9 % (0-10); Neutrophil # 8.51 X10^3/uL (2.7-7.7); Neutrophil % 87.9 % (47-70); Platelet Count 313 K/mm3 (150-450); RBC Distribution Width CV 17.7 % (11.6-14.6); RBC Distribution Width SD 49.3 fl (35.1-43.9); Red Blood Count 4.28 M/mm3 (4.6-6.2); White Blood Count 9.7 K/mm3 (4.4-11.0)
[2018-04-24 06:40] LABS: Differential Indicated SCAN CRITERIA MET; POSITIVE COUNT NO; POSITIVE DIFFERENTIAL YES; POSITIVE MORPHOLOGY NO
--- NOTE | 2018-04-24 06:41 | NURSING ---
Pts. primary rn aware of critical potassium value of 6.2 at this time.
[2018-04-24 06:42] LABS: ALB/GLOB Ratio 0.4 RATIO (0.9-2.4); AST(SGOT) 699 U/L (15-37); Alanine Aminotransfer ALT/SGPT 449 U/L (16-61); Albumin, Serum 2.1 g/dL (3.2-5.0); Alkaline Phosphatase 1712 U/L (45-117); Anion Gap 17 (5-15); BUN 82 mg/dL (7-18); BUN/Creat Ratio 19.6 RATIO (10-20); Chloride 93 mmol/L (98-107); Creatinine, Serum 4.19 mg/dL (0.70-1.30); EST Glomerular Filtration Rate 16 mL/min (>60); Est Glom Filt Rate - Afr Amer 19 mL/min (>60); Estimated Creatinine Clearance 21.29 ml/min; Globulin 5.1 g/dL (2.2-4.2); Glucose 101 mg/dL (74-106); Potassium 6.2 mmol/L (3.5-5.1); Protein, Total 7.2 g/dL (6.4-8.2); Sodium Level 127 mmol/L (136-145)
--- NOTE | 2018-04-24 06:53 | EKG12_ITS ---
Test Reason : Blood Pressure : / mmHG Vent. Rate : 089 BPM Atrial Rate : 089 BPM P-R Int : 158 ms QRS Dur : 086 ms QT Int : 350 ms P-R-T Axes : 055 013 069 degrees QTc Int : 425 ms Normal sinus rhythm Low voltage QRS Nonspecific ST abnormality Abnormal ECG When compared with ECG of 14-APR-2018 11:45, No significant change was found Confirmed by JOANNE CHANDRA ([id number]), editor trade journal MARIELA EDWARD ([id number]) on 04/28/2018 2:57:58 PM Referred By: Swati Waddell Confirmed By:JOANNE CHANDRA
--- NOTE | 2018-04-24 07:14 | PCM.CONS.R ---
Consultation - Renal 04/24/18 PCP/ Referring MD: Requesting physician: Dr Waddell Primary care physician: Hannah Bryson, EDIEC Reason for Consultation:: [place], hyponatremia, hyperkalemia - History of Present Illness History of Present Illness: The patient is a 52 year old M with a history of Head and neck SCC, colon cancer in 2013 with liver mets, failed to f/u with treatment until recently presenting with increased abdominal distension and leg swelling. He was discharged from [facility] on April 16 after paracentesis with lasix and aldactone for his ascites. He was scheduled for repeat outpt paracentesis yesterday but instead was readmitted for increased ascites, leg swelling, acute liver failure and renal failure with hyperkalemia. Baseline creatinine was 0.6 on April 16. Creatinine on admission 3.2 to 4.19 today. He had a CT of chest and abdomen with iv contrast during March hospitalization. Potassium elevated at 6 treated with kayexalate. His ammonia level was elevated with hepatic encephalopathy. He is jaundiced. He complains of the severe leg pain. He has been taking percocet and tylenol for pain. He had decreased urine output since weekend. Denies nausea, vomiting, abdominal pain. Denies shortness of breath. Sodium level low on admit at 123 improved to 127 with iv hydration. Urine sodium low at 11, UCr 165. He was scheduled to start chemotherapy on May 04. He is a poor historian and states just wants to be left alone and go home. He and his girlfriend has met with palliative care. They have declined hospice care. - Allergies Allergies: Allergies shellfish derived Allergy (Verified 04/23/18 10:36) Itching shrimp Allergy (Verified 04/23/18 13:41) Itching - Current Medications Current Medications: Current Medications Albuterol () 10 mg INHALATION X1 ONE Stop: 04/24/18 07:16 Albuterol Sulfate (Ventolin Aerosols) 2.5 mg INHALATION Q4H PRN PRN PRN Reason: WHEEZING Citalopram Hydrobromide (Celexa) 20 mg PO DAILY KUMAR Dextrose (D50w Syringe) 25 gm IV X1 ONE Stop: 04/24/18 07:16 Calcium Gluconate 1 gm/ N/A 10 mls @ 0 mls/hr IV X1 KUMAR Insulin Human Lispro (Humalog Kwikpen (Bkc)) 10 unit SC X1 ONE Stop: 04/24/18 07:16 Lactulose (Chronulac, Cephulac) 20 gm PO BID KUMAR Last Admin: 04/23/18 22:35 Dose: 20 gm Magnesium Hydroxide (Milk Of Magnesia) 30 ml PO DAILY PRN PRN PRN Reason: Constipation Ondansetron HCl (Zofran) 8 mg PO Q8H PRN PRN PRN Reason: NAUSEA Oxycodone HCl (Oxyir) 5 mg PO Q4H PRN PRN PRN Reason: PAIN Last Admin: 04/23/18 15:32 Dose: 5 mg Pantoprazole Sodium (Protonix) 20 mg PO DAILY KUMAR Sodium Chloride () 5 - 30 ml IV UD PRN PRN Reason: SALINE FLUSH Sodium Polystyrene Sulfonate (Kayexalate) 30 gm PO X1 ONE Stop: 04/24/18 07:16 - Past Surgical History Surgical History: - - hemicolectomy - Social History Smoking Status: Current every day smoker - Family History Maternal History Items: No pertinent history Paternal History Items: No pertinent history Review of Systems Constitutional: Reports: Anorexia, Weakness, Fatigue. Denies: Chills, Fever Eyes: Denies: Vision Change Cardiovascular: Reports: Edema. Denies: Chest Pain Respiratory: Denies: Cough, Shortness of Breath Gastrointestinal: Reports: Abdominal Pain, - - distension, paracentesis last admit. Denies: Constipation, Diarrhea, Nausea, Vomiting Genitourinary: Reports: - - decreased urine output over weekend Musculoskeletal: Reports: - - weakness, leg swelling, pain Skin: Denies: Rash Neurological: Reports: Balance problems, Confusion. Denies: Tremor, Seizures Psychiatric: Reports: Depression Hematologic/ Lymphatic: Reports: - - head and neck cancer, colon cancer - Physical Exam General: Alert, Cooperative, Confused, Lethargic, - - encephalopathic, cachectic HEENT: PERRLA, EOMI, - - jaundiced, icteric Oral: Dry Mucosa Neck: No JVD Lungs: Clear to auscultation, Diminished Cardiovascular: Regular rate Abdomen: Bowel Sounds Present, Distended, Tender, - - tense ascites Extremities: Edema Skin: No rashes, - - tattoo Musculoskeletal: Cachexia, Muscle Wasting Neurological: - - generalized weakness, debilitated, no asterixis Psych/Mental Status: Flat Affect, Depressed, - - encephalopathic Vital Signs Temp Pulse Resp BP Pulse Ox 98.0 F 87 19 H 115/64 97 04/24/18 05:00 04/24/18 05:00 04/24/18 05:00 04/24/18 05:00 04/24/18 05:00 Oxygen Flow Rate (L/min) 6 Oxygen Delivery Method Bi-pap Weight: 84.5 kg Body Mass Index (BMI) 26.7 Intake and Output for Last 24 Hours 04/22/18 04/23/18 04/24/18 23:59 23:59 23:59 Intake Total 120 / 120 1024 / 1024 Output Total 150 / 150 Balance 120 / 120 874 / 874 Laboratory Tests Past 24 Hrs 04/23/18 04/23/18 04/23/18 11:30 11:30 11:30 WBC 10.8 RBC 4.28 L Hgb 11.9 L Hct 35.8 L MCV 83.6 MCH 27.8 MCHC 33.2 RDW 17.2 H RDW Differential 51.4 H Plt Count 262 MPV 11.1 Immature Gran % (Auto) 0.300 Neut % (Auto) 83.5 H Lymph % (Auto) 10.3 L [place] % (Auto) 5.8 Eos % (Auto) 0.1 Baso % (Auto) 0.0 Absolute Neuts (auto) 9.0 H Absolute Lymphs (auto) 1.12 Total Counted Not Reportable PT INR Sodium 123 L Potassium 5.8 H Chloride 90 L Carbon Dioxide 20.0 L Anion Gap 13 BUN 68 H Creatinine 3.22 H Estim Creat Clear Calc 27.71 Est GFR (MDRD) Af Amer 26 L Est GFR (MDRD) Non-Af 22 L BUN/Creatinine Ratio 21.1 H Glucose 96 Calcium 8.5 Phosphorus Total Bilirubin AST 1137 H ALT 575 H Alkaline Phosphatase 1793 H Ammonia Total Protein Albumin Globulin Albumin/Globulin Ratio Urine Osmolality Ur Random Sodium Urine Creatinine Acetaminophen 04/23/18 04/23/18 04/23/18 11:30 18:36 18:36 WBC RBC Hgb Hct MCV MCH MCHC RDW RDW Differential Plt Count MPV Immature Gran % (Auto) Neut % (Auto) Lymph % (Auto) [place] % (Auto) Eos % (Auto) Baso % (Auto) Absolute Neuts (auto) Absolute Lymphs (auto) Total Counted PT 19.0 H INR 1.6 Sodium 124 L Potassium 6.1 H* Chloride 93 L Carbon Dioxide 17.0 L Anion Gap BUN 72 H Creatinine 3.29 H Estim Creat Clear Calc 27.12 Est GFR (MDRD) Af Amer 26 L Est GFR (MDRD) Non-Af 21 L BUN/Creatinine Ratio 21.9 H Glucose 91 Calcium 7.8 L Phosphorus 7.9 H Total Bilirubin AST ALT Alkaline Phosphatase Ammonia Total Protein Albumin 2.1 L Globulin Albumin/Globulin Ratio Urine Osmolality Ur Random Sodium Urine Creatinine Acetaminophen < 2.0 L 04/23/18 04/24/18 04/24/18 18:36 02:15 02:15 WBC RBC Hgb Hct MCV MCH MCHC RDW RDW Differential Plt Count MPV Immature Gran % (Auto) Neut % (Auto) Lymph % (Auto) [place] % (Auto) Eos % (Auto) Baso % (Auto) Absolute Neuts (auto) Absolute Lymphs (auto) Total Counted PT INR Sodium Potassium Chloride Carbon Dioxide Anion Gap BUN Creatinine Estim Creat Clear Calc Est GFR (MDRD) Af Amer Est GFR (MDRD) Non-Af BUN/Creatinine Ratio Glucose Calcium Phosphorus Total Bilirubin AST ALT Alkaline Phosphatase Ammonia 91.0 H Total Protein Albumin Globulin Albumin/Globulin Ratio Urine Osmolality 400 Ur Random Sodium Urine Creatinine 165.00 Acetaminophen 04/24/18 04/24/18 04/24/18 02:15 05:35 05:35 WBC 9.7 RBC 4.28 L Hgb 12.0 L Hct 34.7 L MCV 81.1 MCH 28.0 MCHC 34.6 RDW 17.7 H RDW Differential 49.3 H Plt Count 313 MPV 11.2 Immature Gran % (Auto) 0.300 Neut % (Auto) 87.9 H Lymph % (Auto) 3.8 L [place] % (Auto) 7.9 Eos % (Auto) 0.1 Baso % (Auto) 0.0 Absolute Neuts (auto) 8.5 H Absolute Lymphs (auto) 0.37 L Total Counted Not Reportable PT 20.8 H INR 1.8 Sodium Potassium Chloride Carbon Dioxide Anion Gap BUN Creatinine Estim Creat Clear Calc Est GFR (MDRD) Af Amer Est GFR (MDRD) Non-Af BUN/Creatinine Ratio Glucose Calcium Phosphorus Total Bilirubin AST ALT Alkaline Phosphatase Ammonia Total Protein Albumin Globulin Albumin/Globulin Ratio Urine Osmolality Ur Random Sodium 11 Urine Creatinine Acetaminophen 04/24/18 05:35 WBC RBC Hgb Hct MCV MCH MCHC RDW RDW Differential Plt Count MPV Immature Gran % (Auto) Neut % (Auto) Lymph % (Auto) [place] % (Auto) Eos % (Auto) Baso % (Auto) Absolute Neuts (auto) Absolute Lymphs (auto) Total Counted PT INR Sodium 127 L Potassium 6.2 H* Chloride 93 L Carbon Dioxide 17.0 L Anion Gap 17 H BUN 82 H Creatinine 4.19 H Estim Creat Clear Calc 21.29 Est GFR (MDRD) Af Amer 19 L Est GFR (MDRD) Non-Af 16 L BUN/Creatinine Ratio 19.6 Glucose 101 Calcium 8.0 L Phosphorus Total Bilirubin 9.00 H AST 699 H ALT 449 H Alkaline Phosphatase 1712 H Ammonia Total Protein 7.2 Albumin 2.1 L Globulin 5.1 H Albumin/Globulin Ratio 0.4 L Urine Osmolality Ur Random Sodium Urine Creatinine Acetaminophen Clinical Impression(s) from Imaging Studies Chest X-Ray 04/23/18 23:25 IMPRESSION: Mild bibasilar atelectasis Electronically Signed: Tu Glass MD at 23:41 EST , Service support , Assessment/Plan All Active Problems Ascites (Acute) Abdominal swelling (Acute) Swelling of both lower extremities (Acute) Colon cancer metastasized to liver (Acute) 1. Acute kidney injury likely due to prerenal event from hypoperfusion state from liver failure, hepatorenal syndrome, diuretic therapy. Recent IV contrast exposure on 04/14 during last hospitalization. Baseline creatinine 0.6 increased to 3.2 on admission now at 4.19 with oliguria. Fractional excretion of sodium < 1%. Patient not a dialysis candidate due to his terminal condition with head and neck cancer, colon cancer with metastasis to the liver. His overall prognosis is grave. Despite our discussion with the patient he has declined on hospice at this time. He is not a candidate for chemotherapy due to his liver failure and kidney failure. hospitalist and oncology concurs with this. 2. Acute hyperkalemia due to renal failure, Aldactone discontinued. Medical management at this time. 3. Hyponatremia likely due to volume expansion, sodium avid state with hepatorenal syndrome. 4. Colon cancer with liver metastasis, head and neck cancer. History of noncompliance with his treatments in 2014. 5. Acute liver failure with ascites, elevated INR, hepatic encephalopathy. Acetaminophen level within normal limits. 6. Overall prognosis grave. Recommend hospice. Discussed with hospitalist and oncology
--- NOTE | 2018-04-24 08:00 | US_ITS ---
PROCEDURE: Ultrasound guided paracentesis. DATE OF EXAMINATION: April 24, 2018. INDICATION: Male, 52 years old. Ascites. PHYSICIAN: Flakito Justice M.D. TECHNIQUE: The risks, benefits, and alternatives to the procedure were explained to the patient. The specific risks of bleeding, infection, and damage to bowel were detailed and accepted. Witnessed informed consent was obtained. The abdomen was ultrasonographically surveyed. An appropriate pocket of fluid was identified at the right lower quadrant. The skin were cleaned and prepped in the usual sterile fashion. Using ultrasound guidance, the peritoneal cavity was accessed with a 5-Bengali paracentesis needle/catheter system. The trocar was removed. A total of 3950 ml of alex-colored fluid were removed from the peritoneal cavity. The catheter was removed and a sterile dressing was applied. The procedure was well tolerated. US/Paracentesis with US IMPRESSION: Ultrasound guided paracentesis. Electronically Signed: Flakito Justice MD at 11:11 EST Tel [phone], Service support ,
[2018-04-24] MEDS: Dextrose 50%-Water 25 GM/50 ML DISP.SYRIN IV (08:34)
[2018-04-24] MEDS: Insulin Lispro 100 UNIT/ML INSULN.PEN 10 UNIT SC (08:35)
[2018-04-24] MEDS: 0.9% NaCl Peripheral Flush Adult/Peds IV ×2 (08:38→11:12)
--- NOTE | 2018-04-24 08:51 | PN_ITS ---
Progress Note Oncology consult note: 52-year-old gentleman with metastatic colon cancer history of head and neck cancer previous chemoradiation therapy. Presented to the emergency room with hepatic renal failure and encephalopathy. Patient complained of intermittent swelling and pain of the abdomen lower extremity. He is not eligible for palliative chemotherapy treatment or immunotherapy treatment because of multiorgan failure. Previous therapy for colon cancer including liver directed therapy: 6 foci microwave ablation. FOLFOX/Cetuximab With radiation therapy to head and neck cancer. Patient did not follow-up with Dr. Godoy for several months. His last visit was at [facility] after admitted for increased abdominal girth from liver failure and ascites. Patient appeared to be encephalopathic and cachectic. He has dyspnea at rest as well as significant pedal edema and ascites. Vital Signs Temp 98.0 F 04/24/18 05:00 Pulse 89 04/24/18 07:35 Resp 19 H 04/24/18 05:00 BP 115/64 04/24/18 05:00 Pulse Ox 97 04/24/18 05:00 Intake & Output 04/22/18 04/23/18 04/24/18 23:59 23:59 23:59 Intake Total 120 / 120 1024 / 1024 Output Total 150 / 150 Balance 120 / 120 874 / 874 Weight: 186 lb 4.65 oz Intake: Oral 120 / 120 400 / 400 IV fluid/meds 624 / 624 Output: Urine 150 / 150 Exam: Alert and orientated x1 Sclerae are anicteric; temporal wasting Lungs diminished breath sounds lung bases Cardiovascular: RRR Abdomen distended with ascites + hepatomegaly Extremity: +1 edema Neurological: + Asterixis Laboratory Results - last 24 hr 04/23/18 04/23/18 04/23/18 11:30 11:30 11:30 WBC 10.8 RBC 4.28 L Hgb 11.9 L Hct 35.8 L MCV 83.6 MCH 27.8 MCHC 33.2 RDW 17.2 H RDW Differential 51.4 H Plt Count 262 MPV 11.1 Immature Gran % (Auto) 0.300 Neut % (Auto) 83.5 H Lymph % (Auto) 10.3 L [place] % (Auto) 5.8 Eos % (Auto) 0.1 Baso % (Auto) 0.0 Absolute Neuts (auto) 9.0 H Absolute Lymphs (auto) 1.12 Total Counted Not Reportable PT INR Sodium 123 L Potassium 5.8 H Chloride 90 L Carbon Dioxide 20.0 L Anion Gap 13 BUN 68 H Creatinine 3.22 H Estim Creat Clear Calc 27.71 Est GFR (MDRD) Af Amer 26 L Est GFR (MDRD) Non-Af 22 L BUN/Creatinine Ratio 21.1 H Glucose 96 Calcium 8.5 Phosphorus Total Bilirubin AST 1137 H ALT 575 H Alkaline Phosphatase 1793 H Ammonia Total Protein Albumin Globulin Albumin/Globulin Ratio Urine Osmolality Ur Random Sodium Urine Creatinine Acetaminophen 04/23/18 04/23/18 04/23/18 11:30 18:36 18:36 WBC RBC Hgb Hct MCV MCH MCHC RDW RDW Differential Plt Count MPV Immature Gran % (Auto) Neut % (Auto) Lymph % (Auto) [place] % (Auto) Eos % (Auto) Baso % (Auto) Absolute Neuts (auto) Absolute Lymphs (auto) Total Counted PT 19.0 H INR 1.6 Sodium 124 L Potassium 6.1 H* Chloride 93 L Carbon Dioxide 17.0 L Anion Gap BUN 72 H Creatinine 3.29 H Estim Creat Clear Calc 27.12 Est GFR (MDRD) Af Amer 26 L Est GFR (MDRD) Non-Af 21 L BUN/Creatinine Ratio 21.9 H Glucose 91 Calcium 7.8 L Phosphorus 7.9 H Total Bilirubin AST ALT Alkaline Phosphatase Ammonia Total Protein Albumin 2.1 L Globulin Albumin/Globulin Ratio Urine Osmolality Ur Random Sodium Urine Creatinine Acetaminophen < 2.0 L 04/23/18 04/24/18 04/24/18 18:36 02:15 02:15 WBC RBC Hgb Hct MCV MCH MCHC RDW RDW Differential Plt Count MPV Immature Gran % (Auto) Neut % (Auto) Lymph % (Auto) [place] % (Auto) Eos % (Auto) Baso % (Auto) Absolute Neuts (auto) Absolute Lymphs (auto) Total Counted PT INR Sodium Potassium Chloride Carbon Dioxide Anion Gap BUN Creatinine Estim Creat Clear Calc Est GFR (MDRD) Af Amer Est GFR (MDRD) Non-Af BUN/Creatinine Ratio Glucose Calcium Phosphorus Total Bilirubin AST ALT Alkaline Phosphatase Ammonia 91.0 H Total Protein Albumin Globulin Albumin/Globulin Ratio Urine Osmolality 400 Ur Random Sodium Urine Creatinine 165.00 Acetaminophen 04/24/18 04/24/18 04/24/18 02:15 05:35 05:35 WBC 9.7 RBC 4.28 L Hgb 12.0 L Hct 34.7 L MCV 81.1 MCH 28.0 MCHC 34.6 RDW 17.7 H RDW Differential 49.3 H Plt Count 313 MPV 11.2 Immature Gran % (Auto) 0.300 Neut % (Auto) 87.9 H Lymph % (Auto) 3.8 L [place] % (Auto) 7.9 Eos % (Auto) 0.1 Baso % (Auto) 0.0 Absolute Neuts (auto) 8.5 H Absolute Lymphs (auto) 0.37 L Total Counted Not Reportable PT 20.8 H INR 1.8 Sodium Potassium Chloride Carbon Dioxide Anion Gap BUN Creatinine Estim Creat Clear Calc Est GFR (MDRD) Af Amer Est GFR (MDRD) Non-Af BUN/Creatinine Ratio Glucose Calcium Phosphorus Total Bilirubin AST ALT Alkaline Phosphatase Ammonia Total Protein Albumin Globulin Albumin/Globulin Ratio Urine Osmolality Ur Random Sodium 11 Urine Creatinine Acetaminophen 04/24/18 05:35 WBC RBC Hgb Hct MCV MCH MCHC RDW RDW Differential Plt Count MPV Immature Gran % (Auto) Neut % (Auto) Lymph % (Auto) [place] % (Auto) Eos % (Auto) Baso % (Auto) Absolute Neuts (auto) Absolute Lymphs (auto) Total Counted PT INR Sodium 127 L Potassium 6.2 H* Chloride 93 L Carbon Dioxide 17.0 L Anion Gap 17 H BUN 82 H Creatinine 4.19 H Estim Creat Clear Calc 21.29 Est GFR (MDRD) Af Amer 19 L Est GFR (MDRD) Non-Af 16 L BUN/Creatinine Ratio 19.6 Glucose 101 Calcium 8.0 L Phosphorus Total Bilirubin 9.00 H AST 699 H ALT 449 H Alkaline Phosphatase 1712 H Ammonia Total Protein 7.2 Albumin 2.1 L Globulin 5.1 H Albumin/Globulin Ratio 0.4 L Urine Osmolality Ur Random Sodium Urine Creatinine Acetaminophen ASSESSMENT/PLAN: 1) metastatic colon cancer; poor performance status ECOG 3, with hepatorenal failure -I recommend inpatient hospice for symptom management. -Prognosis very poor; days to week life expectancy 2) hepatorenal failure -Therapeutic paracentesis today and follow-up with nephrology. 3) family conference as needed regarding patient and family expectation. -Patient is encephalopathic and cannot make reasonable decision. -POA to be informed of his status. -Possible ethic committee meeting if there is further conflicts? cc: Dr. James Godoy; Dr. Lucille Martinez; Dr. Neville Waddell
[2018-04-24] MEDS: Sodium Polystyrene Sulfonate 15 GM/60 ML UDC 30 GM PO (09:45)
--- NOTE | 2018-04-24 09:58 | CASEMGMT ---
JUNI spoke with Dr Flynn this am. He said patient has a week at most to live. JUNI spoke with Kaykay at [facility] and they spoke with patient and his significant other who chose Palliative Care. SW will talk with patient's significant other/POA regarding really considering inpatient Hospice for patient's comfort. Ebonie RUSSELL MSW
[2018-04-24] MEDS: Morphine 2 MG/ML Syringe 1 MG IV (11:12)
[2018-04-24] MEDS: Albuterol 2.5 MG/3 ML VIAL.NEB. INHALATION (11:30)
--- NOTE | 2018-04-24 11:49 | DCINST_ITS ---
You will use the following diet at home:: No restrictions Allergies/Adverse Reactions: Allergies shellfish derived Allergy (Verified 04/23/18 10:36) Itching shrimp Allergy (Verified 04/23/18 13:41) Itching Medications to take at Discharge Albuterol Sulfate [Ventolin Hfa] 2 puff IH Q4H PRN PRN 04/14/18 Citalopram [Celexa] 20 mg PO DAILY 04/14/18 Lisinopril 20 mg PO DAILY 04/14/18 Omeprazole 20 mg PO DAILY 04/14/18 Ondansetron [Zofran Odt] 8 mg PO Q8H PRN PRN 04/14/18 Furosemide [Lasix] 20 mg PO DAILY 04/23/18 Oxycodone [Oxyir] 5 - 10 mg PO Q4H PRN PRN 04/23/18 Spironolactone 100 mg PO DAILY 04/23/18 Primary Care Physician: Hannah Bryson NP-C [Primary Care Provider] - Test Results: Test results from this visit will be discussed in further detail at your follow- up appointment, if applicable. Proposed Discharge Date: 04/24/18
--- NOTE | 2018-04-24 11:57 | CPS ---
albuterol aerosol rx given x 4 total to equal dosage needed . aerosol rx started and stopped after aprox 2 min. pt nauseated and vomiting. rx started back up and finished without any further incidences. nurse aware of nausea and vomiting
[2018-04-24] MEDS: Citalopram 20 MG Tablet PO (12:06)
[2018-04-24] MEDS: Ondansetron 8 MG Tablet PO (12:06)
[2018-04-24] MEDS: Pantoprazole Sodium 20 MG Tablet PO (12:06)
--- NOTE | 2018-04-24 12:29 | CASEMGMT ---
GRACE [place] spoke with patient and he agreed to inpatient Hospice. JUNI spoke with patient's significant other/POA. JUNI spoke with her about what Dr Flynn told SW today that patient has days to a week to live. She became tearful. SW provided emotional support. Patient's niece was also there for support. Patient's significant other said that is what he wants so she will go with it. She was in agreement with Hospice coming to evaluate patient for the inpatient unit. She thanked JUNI for the help. JUNI called Hospice and spoke with Ragini. After a phone call she said a nurse will be at [facility] in about an hour to evaluate patient. JUNI let RN, battery charger tester, patient, and his significant other know this information. Ebonie RUSSELL SHADE CLASSIFIER
--- NOTE | 2018-04-24 13:00 | CASEMGMT ---
CM readmission chart review: Pt was initially admitted 04/14-04/15 and had paracentesis at that time but was discharged soon after because Dr. Godoy had wanted to start chemo orestes as pt had not been any treatment for cancer 'for awhile.' See CM assessment completed by this RN ELVER on 04/15/18. Pt returns to ED from outpt radiology(where he was supposed to have paracentesis) for jaundice, swelling, and pain. Palliative care was intially consulted and agreed upon by pt/family but after further discussion with physicians and SW, pt/sig other have agreed to Hospice IPU at this time. [facility] en route to evaluate pt for IPU at this time. SStaten BRITTANY RAYA
--- NOTE | 2018-04-24 13:16 | DS.PCM_ITS ---
<Jaylin Elkins - Last Filed: 04/24/18 13:22> Discharge Date and Diagnosis Date of Admission: 04/23/18 Date of Discharge: 04/24/18 - Primary Discharge Diagnosis 1. Stage IV metastatic colon cancer 2. Malignant ascites secondary to #1 3. Acute hepatic encephalopathy secondary to liver metastasis 4. Acute kidney injury 5. Electrolyte disturbance including hyponatremia and hyperkalemia 6. Hospice referral Hospital Course and Treatment Imaging Results: Diagnostic Data Chest X-Ray 04/23/18 23:25 IMPRESSION: Mild bibasilar atelectasis Electronically Signed: Tu Glass MD at 23:41 EST , Service support , Paracentesis Ultrasound 04/24/18 08:00 IMPRESSION: Ultrasound guided paracentesis. Electronically Signed: Flakito Justice MD at 11:11 EST Tel [phone], Service support , Dr. Ji- Hospice Dr. Flynn-Oncology Dr. Martinez- Nephrology Operations: None Procedures: Paracentesis Summary of Care Provided: The patient is a 52 year old M admitted 04/23/2018 due to pain and swelling of the lower extremities. Patient has a history of metastatic colon cancer status post colon resection and chemotherapy/radiation about 3-1/2 years ago. He aborted treatment and discontinued following with oncology. His other past medical history includes hypertension, GERD, depression, tobacco dependence. Patient with recent admission 04/14/2018 for similar presenting symptoms. He was to follow-up closely with oncology with plans for beginning chemotherapy treatment. He has worsened since that time. Oncology consulted during admission. Did not feel patient is eligible for palliative chemotherapy or immunotherapy due to multiorgan failure. Patient underwent paracentesis for malignant ascites with removal of 4 L. Patient noted to have acute hepatic encephalopathy secondary to liver metastasis, acute kidney injury, electrolyte disturbance including hyponatremia and hyperkalemia. Hospice was recommended to patient and significant other. Patient agreeable and will be transferred to inpatient hospice unit at discharge. General: Alert, Cooperative, No apparent distress, drowsy, intermittent confusion HEENT: Atraumatic, PERRLA, EOMI, Normocephalic Oral: Dry Mucosa Neck: Supple, No JVD, Negative Carotid Bruits Lungs: Clear to auscultation, Normal air movement Cardiovascular: Regular rate, Regular Rhythm, Normal S1, Normal S2, No murmurs Abdomen: Severe abdominal distention/ascites Extremities: Bilateral lower extremity edema +3 Skin: No rashes, No breakdown Musculoskeletal: No Tenderness to Palpation of Joints or Extremities Lymphatic: No Cervical, Supraclavicular, or Inguinal Adenopathy Neurological: Cranial nerves II-XII grossly intact, Neuro grossly intact Psych/Mental Status: Normal Affect, Appropriate Patient seen and examined prior to discharge. Physical assessment as noted above. Patient to be transferred to inpatient hospice unit. This patient was seen by NATALIIA Miguel under the supervision of Dr. Waddell. - Physical Exam Vital Signs Temp Pulse Resp BP Pulse Ox 97.5 F L 89 16 101/57 L 96 04/24/18 09:48 04/24/18 11:30 04/24/18 11:30 04/24/18 09:48 04/24/18 09:54 Oxygen Flow Rate (L/min) 6 Oxygen Delivery Method Nasal Cannula Weight: 186 lb 4.65 oz Body Mass Index (BMI) 26.7 Intake and Output for Last 24 Hours 04/22/18 04/23/18 04/24/18 23:59 23:59 23:59 Intake Total 120 / 120 1674 / 1674 Output Total 4100 / 4100 Balance 120 / 120 -2426 / -2426 Laboratory Tests Past 24 Hrs 04/23/18 04/23/18 04/23/18 11:30 11:30 18:36 WBC RBC Hgb Hct MCV MCH MCHC RDW RDW Differential Plt Count MPV Immature Gran % (Auto) Neut % (Auto) Lymph % (Auto) [place] % (Auto) Eos % (Auto) Baso % (Auto) Absolute Neuts (auto) Absolute Lymphs (auto) Total Counted PT 19.0 H INR 1.6 Sodium 124 L Potassium 6.1 H* Chloride 93 L Carbon Dioxide 17.0 L Anion Gap BUN 72 H Creatinine 3.29 H Estim Creat Clear Calc 27.12 Est GFR (MDRD) Af Amer 26 L Est GFR (MDRD) Non-Af 21 L BUN/Creatinine Ratio 21.9 H Glucose 91 Calcium 7.8 L Phosphorus 7.9 H Total Bilirubin AST 1137 H ALT 575 H Alkaline Phosphatase 1793 H Ammonia Total Protein Albumin 2.1 L Globulin Albumin/Globulin Ratio Urine Osmolality Ur Random Sodium Urine Creatinine Acetaminophen 04/23/18 04/23/18 04/24/18 18:36 18:36 02:15 WBC RBC Hgb Hct MCV MCH MCHC RDW RDW Differential Plt Count MPV Immature Gran % (Auto) Neut % (Auto) Lymph % (Auto) [place] % (Auto) Eos % (Auto) Baso % (Auto) Absolute Neuts (auto) Absolute Lymphs (auto) Total Counted PT INR Sodium Potassium Chloride Carbon Dioxide Anion Gap BUN Creatinine Estim Creat Clear Calc Est GFR (MDRD) Af Amer Est GFR (MDRD) Non-Af BUN/Creatinine Ratio Glucose Calcium Phosphorus Total Bilirubin AST ALT Alkaline Phosphatase Ammonia 91.0 H Total Protein Albumin Globulin Albumin/Globulin Ratio Urine Osmolality 400 Ur Random Sodium Urine Creatinine Acetaminophen < 2.0 L 04/24/18 04/24/18 04/24/18 02:15 02:15 05:35 WBC 9.7 RBC 4.28 L Hgb 12.0 L Hct 34.7 L MCV 81.1 MCH 28.0 MCHC 34.6 RDW 17.7 H RDW Differential 49.3 H Plt Count 313 MPV 11.2 Immature Gran % (Auto) 0.300 Neut % (Auto) 87.9 H Lymph % (Auto) 3.8 L [place] % (Auto) 7.9 Eos % (Auto) 0.1 Baso % (Auto) 0.0 Absolute Neuts (auto) 8.5 H Absolute Lymphs (auto) 0.37 L Total Counted Not Reportable PT INR Sodium Potassium Chloride Carbon Dioxide Anion Gap BUN Creatinine Estim Creat Clear Calc Est GFR (MDRD) Af Amer Est GFR (MDRD) Non-Af BUN/Creatinine Ratio Glucose Calcium Phosphorus Total Bilirubin AST ALT Alkaline Phosphatase Ammonia Total Protein Albumin Globulin Albumin/Globulin Ratio Urine Osmolality Ur Random Sodium 11 Urine Creatinine 165.00 Acetaminophen 04/24/18 04/24/18 05:35 05:35 WBC RBC Hgb Hct MCV MCH MCHC RDW RDW Differential Plt Count MPV Immature Gran % (Auto) Neut % (Auto) Lymph % (Auto) [place] % (Auto) Eos % (Auto) Baso % (Auto) Absolute Neuts (auto) Absolute Lymphs (auto) Total Counted PT 20.8 H INR 1.8 Sodium 127 L Potassium 6.2 H* Chloride 93 L Carbon Dioxide 17.0 L Anion Gap 17 H BUN 82 H Creatinine 4.19 H Estim Creat Clear Calc 21.29 Est GFR (MDRD) Af Amer 19 L Est GFR (MDRD) Non-Af 16 L BUN/Creatinine Ratio 19.6 Glucose 101 Calcium 8.0 L Phosphorus Total Bilirubin 9.00 H AST 699 H ALT 449 H Alkaline Phosphatase 1712 H Ammonia Total Protein 7.2 Albumin 2.1 L Globulin 5.1 H Albumin/Globulin Ratio 0.4 L Urine Osmolality Ur Random Sodium Urine Creatinine Acetaminophen Home Medications: Medications to take at Discharge Albuterol Sulfate [Ventolin Hfa] 2 puff IH Q4H PRN PRN 04/14/18 Citalopram [Celexa] 20 mg PO DAILY 04/14/18 Lisinopril 20 mg PO DAILY 04/14/18 Omeprazole 20 mg PO DAILY 04/14/18 Ondansetron [Zofran Odt] 8 mg PO Q8H PRN PRN 04/14/18 Furosemide [Lasix] 20 mg PO DAILY 04/23/18 Oxycodone [Oxyir] 5 - 10 mg PO Q4H PRN PRN 04/23/18 Spironolactone 100 mg PO DAILY 04/23/18 Primary Care Physician: Hannah Bryson NP-C [Primary Care Provider] - Disposition: Hospice Medical Facility Minutes spent on discharge:: 35 Patient Condition:: Poor Medical Necessity - Tobacco Use Smoking Status: Current every day smoker Meaningful Use Info Meaningful Use Diagnoses (Choose all that apply): None applicable <Swati Waddell - Last Filed: 04/24/18 15:33> Discharge Date and Diagnosis - Primary Discharge Diagnosis Active and Suspected Problems Hyponatremia (Acute) Hyperkalemia (Acute) Hepatic encephalopathy (Acute) Acute renal failure (Acute) Acute liver failure (Acute) Hospital Course and Treatment Imaging Results: 04/24/18 08:00 Paracentesis with US [US] Routine Summary of Care Provided: The patient is a 52 year old M with a history of metastatic colon lung cancer with extensive liver metastasis from malignant ascites. He was admitted with a complaint of shortness of breath and lower extremity swelling as well as massive ascites. He had been scheduled to go to the radiology for paracentesis because of the lower extremity swelling and complains of shortness of breath he was brought to the ED. He had severe AK I on admission likely due to hepatorenal syndrome. He had paracentesis with removal of 4 L on 04/24/2018. Patient was counseled strongly that his condition was very severe and he was terminal. Option of hospice was discussed with patient and he agreed to this evaluation. During this admission, he was also managed for acute hepatic encephalopathy due to liver metastasis and acute kidney injury as well as severe hyperkalemia and hyponatremia. Nephrology was also consulted and thought he was more appropriate for hospice management. Patient agreed to go to hospice and this was also discussed with his significant other. He was transferred to an inpatient hospice facility on 04/24/2018 after he had the paracentesis. Patient seen and examined prior to discharge. He was very weak any significant pain he was also very short of breath and had been started on BiPAP overnight but was transitioned to 6 L of nasal cannula oxygen at time of review. He admitted to abdominal pain and shortness of breath but denied any fever chills or chest pain. Review of systems otherwise negative. On examination Vital Signs Height 5 ft 10 in Weight: 186 lb 4.65 oz Weight in Pounds 186.3 lbs Pulse Ox 96 Temperature 97.5 F Pulse Rate 89 Respiratory Rate 16 Blood Pressure [BP] 113/66 Blood Pressure 101/57 Blood Pressure Position Semi-Fowlers General: Alert, Cooperative, distressed and uncomfortable. HEENT: Atraumatic, PERRLA, EOMI, Normocephalic; very jaundiced Oral: Dry Mucosa Neck: Supple, No JVD, Negative Carotid Bruits Lungs: coarse crackles in mid and lower lung fernandez bilaterally Cardiovascular: Regular rate, Regular Rhythm, Normal S1, Normal S2, No murmurs Abdomen: Severe abdominal distention/ascites with positive fluid thrill Extremities: Bilateral lower extremity edema +3 Skin: No rashes, No breakdown; Musculoskeletal: No Tenderness to Palpation of Joints or Extremities Lymphatic: No Cervical, Supraclavicular, or Inguinal Adenopathy Neurological: Cranial nerves II-XII grossly intact, Neuro grossly intact Psych/Mental Status:distressed, very uncomfortable Plan as stated above. Agree with rest of Jaylin Elkins's VICTORIAN LITERATURE PROFESSOR-C's note, assessment and plan. Prognosis is very poor. - Physical Exam Vital Signs Temp Pulse Resp BP Pulse Ox 97.5 F L 89 16 101/57 L 96 04/24/18 09:48 04/24/18 11:35 04/24/18 11:30 04/24/18 09:48 04/24/18 09:54 Oxygen Flow Rate (L/min) 6 Oxygen Delivery Method Nasal Cannula Weight: 186 lb 4.65 oz Body Mass Index (BMI) 26.7 Intake and Output for Last 24 Hours 04/22/18 04/23/18 04/24/18 23:59 23:59 23:59 Intake Total 120 / 120 1674 / 1674 Output Total 4100 / 4100 Balance 120 / 120 -2426 / -2426 Laboratory Tests Past 24 Hrs 04/23/18 04/23/18 04/23/18 18:36 18:36 18:36 WBC RBC Hgb Hct MCV MCH MCHC RDW RDW Differential Plt Count MPV Immature Gran % (Auto) Neut % (Auto) Lymph % (Auto) [place] % (Auto) Eos % (Auto) Baso % (Auto) Absolute Neuts (auto) Absolute Lymphs (auto) Total Counted PT INR Sodium 124 L Potassium 6.1 H* Chloride 93 L Carbon Dioxide 17.0 L Anion Gap BUN 72 H Creatinine 3.29 H Estim Creat Clear Calc 27.12 Est GFR (MDRD) Af Amer 26 L Est GFR (MDRD) Non-Af 21 L BUN/Creatinine Ratio 21.9 H Glucose 91 Calcium 7.8 L Phosphorus 7.9 H Total Bilirubin AST ALT Alkaline Phosphatase Ammonia 91.0 H Total Protein Albumin 2.1 L Globulin Albumin/Globulin Ratio Urine Osmolality Ur Random Sodium Urine Creatinine Acetaminophen < 2.0 L 04/24/18 04/24/18 04/24/18 02:15 02:15 02:15 WBC RBC Hgb Hct MCV MCH MCHC RDW RDW Differential Plt Count MPV Immature Gran % (Auto) Neut % (Auto) Lymph % (Auto) [place] % (Auto) Eos % (Auto) Baso % (Auto) Absolute Neuts (auto) Absolute Lymphs (auto) Total Counted PT INR Sodium Potassium Chloride Carbon Dioxide Anion Gap BUN Creatinine Estim Creat Clear Calc Est GFR (MDRD) Af Amer Est GFR (MDRD) Non-Af BUN/Creatinine Ratio Glucose Calcium Phosphorus Total Bilirubin AST ALT Alkaline Phosphatase Ammonia Total Protein Albumin Globulin Albumin/Globulin Ratio Urine Osmolality 400 Ur Random Sodium 11 Urine Creatinine 165.00 Acetaminophen 04/24/18 04/24/18 04/24/18 05:35 05:35 05:35 WBC 9.7 RBC 4.28 L Hgb 12.0 L Hct 34.7 L MCV 81.1 MCH 28.0 MCHC 34.6 RDW 17.7 H RDW Differential 49.3 H Plt Count 313 MPV 11.2 Immature Gran % (Auto) 0.300 Neut % (Auto) 87.9 H Lymph % (Auto) 3.8 L [place] % (Auto) 7.9 Eos % (Auto) 0.1 Baso % (Auto) 0.0 Absolute Neuts (auto) 8.5 H Absolute Lymphs (auto) 0.37 L Total Counted Not Reportable PT 20.8 H INR 1.8 Sodium 127 L Potassium 6.2 H* Chloride 93 L Carbon Dioxide 17.0 L Anion Gap 17 H BUN 82 H Creatinine 4.19 H Estim Creat Clear Calc 21.29 Est GFR (MDRD) Af Amer 19 L Est GFR (MDRD) Non-Af 16 L BUN/Creatinine Ratio 19.6 Glucose 101 Calcium 8.0 L Phosphorus Total Bilirubin 9.00 H AST 699 H ALT 449 H Alkaline Phosphatase 1712 H Ammonia Total Protein 7.2 Albumin 2.1 L Globulin 5.1 H Albumin/Globulin Ratio 0.4 L Urine Osmolality Ur Random Sodium Urine Creatinine Acetaminophen Code Visit Inpatient E&M: 55586 Disch Hosp
--- NOTE | 2018-04-24 13:37 | CASEMGMT ---
manager cosmetics evaluated patient and he is approved to go to [facility] inpatient unit. Plan: [facility] inpatient unit. Ebonie RUSSELL MSW
[2018-04-24] MEDS: oxyCODONE 5 MG Tablet PO (13:59)
--- NOTE | 2018-04-24 14:33 | NURSING ---
Student nurse charting reviewed and appropriate.
== END 2018-04-24 14:17 | disposition hospice, inpatient (51) | DRG 240 ==
LOC: ED 11:15 → PCU 13:07
PROVIDERS: Internal Medicine Nephrology; Admitting Provider Student in an Organized Health Care Education/Training Program; Emergency Provider Emergency Medicine; Family Provider Nurse Practitioner Family; PCP Nurse Practitioner Family; Referring Provider Student in an Organized Health Care Education/Training Program; Visit Provider Student in an Organized Health Care Education/Training Program
DX: C18.9 Malignant neoplasm of colon, unspecified (principal); C78.7 Secondary malignant neoplasm of liver and intrahepatic bile duct; R18.0 Malignant ascites; E87.1 Hypo-osmolality and hyponatremia; E86.0 Dehydration; E87.5 Hyperkalemia; Z90.49 Acquired absence of other specified parts of digestive tract; Z92.3 Personal history of irradiation; Z92.21 Personal history of antineoplastic chemotherapy; Z51.5 Encounter for palliative care; D64.9 Anemia, unspecified; K76.7 Hepatorenal syndrome; N17.9 Acute kidney failure, unspecified; I10 Essential (primary) hypertension; K21.9 Gastro-esophageal reflux disease without esophagitis; K72.90 Hepatic failure, unspecified without coma; F17.200 Nicotine dependence, unspecified, uncomplicated
CPT/HCPCS: 36415; 49083; 71045; 80048; 80053; 80069; 80329; 82140; 82570; 83935; 84075; 84300; 84450; 84460; 85025; 85610; 93005; 94002; 94640; 97163; 97165; 97802; 99282; 99406; J7030; A4216; G0480; J0610; J2405

== ENCOUNTER → 2018-04-23 15:38 | Outpatient (CLI) | payer SELFPAY ==
--- NOTE | 2018-04-23 09:43 | US_ITS ---
STUDY: ABDOMINAL ULTRASOUND -ascites survey. REASON FOR VISIT: Male, 52 years old. Ascites and possible paracentesis. TECHNIQUE: Ultrasound evaluation of the right upper quadrant was performed with real-time and static mills-scale imaging. TECHNICAL QUALITY: Adequate. COMPARISON: None. FINDINGS: There is evidence of ascites. The patient was not feeling well and decided to go to the emergency department for assessment. The paracentesis was performed on April 24. US/Abdomen Limited IMPRESSION: Ascites survey demonstrates presence of ascites although the patient wasn't feeling well and went to the emergency room. Electronically Signed: Flakito Justice MD at 8:31 EST Tel [phone], Service support ,
[2018-04-23 09:54] LABS: Hematocrit 35.3 % (40-54); Hemoglobin 11.6 g/dl (13.0-16.5); Mean Corp Hgb Conc 32.9 g/gl (32-36); Mean Corpuscular Hgb 27.6 pg (27.0-32.0); Mean Platelet Vol. 11.3 fl (6.2-12.0); Platelet Count 258 K/mm3 (150-450); RBC Distribution Width CV 17.2 % (11.6-14.6); RBC Distribution Width SD 52.7 fl (35.1-43.9); White Blood Count 10.2 K/mm3 (4.4-11.0)
[2018-04-23 09:55] LABS: International Normalized Ratio 1.7; Prothrombin Time (Protime)PT. 19.9 SECONDS (11.7-14.9)
[2018-04-23 09:56] LABS: Partial Thromboplast Time 40.9 Seconds (24.1-36.2)
[2018-04-23 09:58] LABS: Scan Indicated on CBC? Y/N NO
--- OUTSIDE RECORDS SUMMARY | 2018-07-12 00:01 | XMS RPT_ITS ---
:1965 Author Organization OHIP Support Name Relationship Address Phone D Unavailable Unavailable Unavailable KAREN EVERETTOTHY Unavailable [address] + [place] [address] D Unavailable Unavailable Unavailable KARLOS NATHAN Unavailable [address] +[phone] [place] [address] D Unavailable Unavailable Unavailable EVERETT, NATHAN Unavailable [address] + [place] [address] D Unavailable Unavailable Unavailable EVERETT, NATHAN Unavailable [address] +[phone] [place] [address] D Unavailable Unavailable Unavailable EVERETT, NATHAN Unavailable [address] + [place] [address] D Unavailable Unavailable Unavailable EVERETT, NATHAN Unavailable [address] +[phone] [place] [address] UE Unavailable Unavailable Unavailable EVERETT, NATHAN Unavailable [address] + [place] [address] UE Unavailable Unavailable Unavailable EVERETT, NATHAN Unavailable [address] [phone] [place] [address] UE Unavailable Unavailable Unavailable NOT GIVEN Unavailable Unavailable Unavailable Care Team Providers Name Role Phone JAMES GODOY Attending Unavailable JAMES GODOY Attending Unavailable JAMES GODOY Referring Unavailable JAMES GODOY Referring Unavailable WAI SERNA Admitting Unavailable WAI SERNA Attending Unavailable WAI SERNA Primary Care Unavailable WAI SERNA Consulting Unavailable PROVIDER, UNKNOWN Consulting Unavailable Wai Serna CITY DETECTIVE-C Primary Care Unavailable Swati Waddell Joy Admitting Unavailable James Godoy Consulting Unavailable Francisco Torres Attending Unavailable Alicia Waddella Joy Admitting Unavailable Alicia Waddella Joy Attending Unavailable Braydon, Wai CITY DETECTIVE-C Primary Care Unavailable Walt, James Consulting Unavailable Koram, Swati Joy Consulting Unavailable Francisco Torres Attending Unavailable Koram, Swati Joy Admitting Unavailable Braydon, Wai CITY DETECTIVE-C Primary Care Unavailable Masci, James Consulting Unavailable Brian Francisco Consulting Unavailable Braydon, Wai CITY DETECTIVE-C Primary Care Unavailable Koram, Swati Joy Admitting Unavailable Koram, Swati Joy Attending Unavailable Koram, Swati Joy Referring Unavailable GarrisonNeville rodriguez Consulting Unavailable Rina, Lapman Consulting Unavailable Juan, Lucille Consulting Unavailable Masci, James Attending Unavailable Masci, James Referring Unavailable Braydon, Wai CITY DETECTIVE-C Primary Care Unavailable Koram, Swati Joy Admitting Unavailable Koram, Swati Joy Attending Unavailable Koram, Swati Joy Referring Unavailable Braydon, Wai CITY DETECTIVE-C Primary Care Unavailable Garrison, Neville Consulting Unavailable Rina, Lapman Consulting Unavailable Koram, Swati Joy Consulting Unavailable Koram, Swati Joy Admitting Unavailable Koram, Swati Joy Referring Unavailable Braydon, Wai CITY DETECTIVE-C Primary Care Unavailable Neville Ji Consulting Unavailable Koram, Swati Joy Attending Unavailable Rina, Lapman Consulting Unavailable Juan, Lucille Consulting Unavailable Koram, Swati Joy Consulting Unavailable Ketan Chandra Attending Unavailable Koram, Swati Joy Referring Unavailable PROBLEMS PROBLEMS DATE TYPE CONDITION / CODE ATTENDING STATUS SOURCE Unknown R94.31 - Abnormal Ketan Chandra Active [facility] electrocardiogram Community [ECG] [EKG] / Hospital R94.31(ICD-10) Repository Unknown I10 - Essential Ketan Chandra 8 (primary) hypertension Community / I10(ICD-10) Hospital Repository Active Malignant ascites / NA Active [facility] R18.0(ICD-10) Clinic Main [place] Repository Active Malignant neoplasm of NA Active [facility] ascending colon / Clinic Main C18.2(ICD-10) [place] Repository Active 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 Clinic Main intrahepatic bile duct [place] / C78.7(ICD-10) Repository Unknown C79.9 - Secondary Francisco Torres Active [facility] malignant neoplasm of Community unspecified site / Hospital C79.9(ICD-10) Repository Principle Chronic gingivitis, BRAYDON, WAI Active [facility] 8 Diagnosis plaque induced / [facility] K0510(ICD-10) Hospital Repository PROCEDURES PROCEDURES No Procedure Records FoundRESULTS RESULTS 12 LEAD ELECTROCARDIOGRAM Observed: 04/28/2018 Status: F Source: [place] 2:58 PM [facility] REPOSITORY [facility] Cardiovascular Services [address] [place] [address] 12 Lead EKG 04/24/18 0706 MR#: [id number] Acct: [id number] Name: JANELLE PAULA Rep #: [id number] : 1965 52 From: Ketan Chandra MD Attending Dr: Swati Waddell MD Status: DIS IN Ordering Dr: Vincent Perry MD Date: 04/24/18 Location: [facility] Sex: M C Admitted: 04/23/18 Test Reason : Blood Pressure : / mmHG Vent. Rate : 089 BPM Atrial Rate : 089 BPM P-R Int : 158 ms QRS Dur : 086 ms QT Int : 350 ms P-R-T Axes : 055 013 069 degrees QTc Int : 425 ms Normal sinus rhythm Low voltage QRS Nonspecific ST abnormality Abnormal ECG When compared with ECG of 14-APR-2018 11:45, No significant change was found Confirmed by KETAN CHANDRA ([id number]), pictures editor MARIELA EDWARD ([id number]) on 04/28/2018 2:57:58 PM Referred By: Swati Waddell Confirmed By:KETAN CHANDRA 04/28/18 1458 Date Ketan Chandra MD CC: CITY DETECTIVE-Bobby Serna; Swati Waddell MD; Vincent Perry MD Signed DISCHARGE SUMMARY Observed: 04/24/2018 Status: F Source: [place] 3:33 PM [facility] REPOSITORY [facility] Medical Records Department [address] [place] [address] Discharge Summary 04/24/18 1312 MR#: [id number] Acct: [id number] Name: JANELLE PAULA Rep #: [id number] : 1965 52 From: Jaylin Elkins NP-C PCP: NATALIIA Baer Status: DIS IN Y Location: [facility] [id number] <Jaylin Elkins - Last Filed: 04/24/18 13:22> Discharge Date and Diagnosis Date of Admission: 04/23/18 Date of Discharge: 04/24/18 - Primary Discharge Diagnosis 1. Stage IV metastatic colon cancer 2. Malignant ascites secondary to #1 3. Acute hepatic encephalopathy secondary to liver metastasis 4. Acute kidney injury 5. Electrolyte disturbance including hyponatremia and hyperkalemia 6. Hospice referral Hospital Course and Treatment Imaging Results: Diagnostic Data Chest X-Ray 04/23/18 23:25 IMPRESSION: Mild bibasilar atelectasis Electronically Signed: Tu Glass MD at 23:41 EST , Service support , Paracentesis Ultrasound 04/24/18 08:00 IMPRESSION: Ultrasound guided paracentesis. Electronically Signed: Flakito Justice MD at 11:11 EST Tel [phone], Service support , Dr. Ji- Hospice Dr. Flynn-Oncology Dr. Martinez- Nephrology Operations: None Procedures: Paracentesis Summary of Care Provided: The patient is a 52 year old M admitted 04/23/2018 due to pain and swelling of the lower extremities. Patient has a history of metastatic colon cancer status post colon resection and chemotherapy/radiation about 3-1/2 years ago. He aborted treatment and discontinued following with oncology. His other past medical history includes hypertension, GERD, depression, tobacco dependence. Patient with recent admission 04/14/2018 for similar presenting symptoms. He was to follow-up closely with oncology with plans for beginning chemotherapy treatment. He has worsened since that time. Oncology consulted during admission. Did not feel patient is eligible for palliative chemotherapy or immunotherapy due to multiorgan failure. Patient underwent paracentesis for malignant ascites with removal of 4 L. Patient noted to have acute hepatic encephalopathy secondary to liver metastasis, acute kidney injury, electrolyte disturbance including hyponatremia and hyperkalemia. Hospice was recommended to patient and significant other. Patient agreeable and will be transferred to inpatient hospice unit at discharge. General: Alert, Cooperative, No apparent distress, drowsy, intermittent confusion HEENT: Atraumatic, PERRLA, EOMI, Normocephalic Oral: Dry Mucosa Neck: Supple, No JVD, Negative Carotid Bruits Lungs: Clear to auscultation, Normal air movement Cardiovascular: Regular rate, Regular Rhythm, Normal S1, Normal S2, No murmurs Abdomen: Severe abdominal distention/ascites Extremities: Bilateral lower extremity edema +3 Skin: No rashes, No breakdown Musculoskeletal: No Tenderness to Palpation of Joints or Extremities Lymphatic: No Cervical, Supraclavicular, or Inguinal Adenopathy Neurological: Cranial nerves II-XII grossly intact, Neuro grossly intact Psych/Mental Status: Normal Affect, Appropriate Patient seen and examined prior to discharge. Physical assessment as noted above. Patient to be transferred to inpatient hospice unit. This patient was seen by NATALIIA Miguel under the supervision of Dr. Waddell. - Physical Exam Vital Signs Temp Pulse Resp BP Pulse Ox 97.5 F L 89 16 101/57 L 96 04/24/18 09:48 04/24/18 11:30 04/24/18 11:30 04/24/18 09:48 04/24/18 09:54 Oxygen Flow Rate (L/min) 6 Oxygen Delivery Method Nasal Cannula Weight: 186 lb 4.65 oz Body Mass Index (BMI) 26.7 Intake and Output for Last 24 Hours Intake Total 120 / 120 1674 / 1674 Output Total 4100 / 4100 Balance 120 / 120 -2426 / -2426 Laboratory Tests Past 24 Hrs WBC RBC Hgb Hct MCV MCH MCHC RDW RDW Differential Plt Count MPV Immature Gran % (Auto) WBC RBC Hgb Hct MCV WBC RBC Hgb Hct MCV MCH MCHC RDW RDW Differential Plt Count MPV Home Medications: Medications to take at Discharge Albuterol Sulfate [Ventolin Hfa] 2 puff IH Q4H PRN PRN 04/14/18 Citalopram [Celexa] 20 mg PO DAILY 04/14/18 Lisinopril 20 mg PO DAILY 04/14/18 Omeprazole 20 mg PO DAILY 04/14/18 Ondansetron [Zofran Odt] 8 mg PO Q8H PRN PRN 04/14/18 Furosemide [Lasix] 20 mg PO DAILY 04/23/18 Oxycodone [Oxyir] 5 - 10 mg PO Q4H PRN PRN 04/23/18 Spironolactone 100 mg PO DAILY 04/23/18 Primary Care Physician: Wai Serna NP-C [Primary Care Provider] - Disposition: Hospice Medical Facility Minutes spent on discharge:: 35 Patient Condition:: Poor Medical Necessity - Tobacco Use Smoking Status: Current every day smoker Meaningful Use Info Meaningful Use Diagnoses (Choose all that apply): None applicable <Swati Waddell - Last Filed: 04/24/18 15:33> Discharge Date and Diagnosis - Primary Discharge Diagnosis Active and Suspected Problems Hyponatremia (Acute) Hyperkalemia (Acute) Hepatic encephalopathy (Acute) Acute renal failure (Acute) Acute liver failure (Acute) Hospital Course and Treatment Imaging Results: 04/24/18 08:00 Paracentesis with US [US] Routine Summary of Care Provided: The patient is a 52 year old M with a history of metastatic colon lung cancer with extensive liver metastasis from malignant ascites. He was admitted with a complaint of shortness of breath and lower extremity swelling as well as massive ascites. He had been scheduled to go to the radiology for paracentesis because of the lower extremity swelling and complains of shortness of breath he was brought to the ED. He had severe AK I on admission likely due to hepatorenal syndrome. He had paracentesis with removal of 4 L on 04/24/2018. Patient was counseled strongly that his condition was very severe and he was terminal. Option of hospice was discussed with patient and he agreed to this evaluation. During this admission, he was also managed for acute hepatic encephalopathy due to liver metastasis and acute kidney injury as well as severe hyperkalemia and hyponatremia. Nephrology was also consulted and thought he was more appropriate for hospice management. Patient agreed to go to hospice and this was also discussed with his significant other. He was transferred to an inpatient hospice facility on 04/24/2018 after he had the paracentesis. Patient seen and examined prior to discharge. He was very weak any significant pain he was also very short of breath and had been started on BiPAP overnight but was transitioned to 6 L of nasal cannula oxygen at time of review. He admitted to abdominal pain and shortness of breath but denied any fever chills or chest pain. Review of systems otherwise negative. On examination Vital Signs Height 5 ft 10 in General: Alert, Cooperative, distressed and uncomfortable. HEENT: Atraumatic, PERRLA, EOMI, Normocephalic; very jaundiced Oral: Dry Mucosa Neck: Supple, No JVD, Negative Carotid Bruits Lungs: coarse crackles in mid and lower lung fernandez bilaterally Cardiovascular: Regular rate, Regular Rhythm, Normal S1, Normal S2, No murmurs Abdomen: Severe abdominal distention/ascites with positive fluid thrill Extremities: Bilateral lower extremity edema +3 Skin: No rashes, No breakdown; Musculoskeletal: No Tenderness to Palpation of Joints or Extremities Lymphatic: No Cervical, Supraclavicular, or Inguinal Adenopathy Neurological: Cranial nerves II-XII grossly intact, Neuro grossly intact Psych/Mental Status:distressed, very uncomfortable Plan as stated above. Agree with rest of Jaylin Elkins's CITY DETECTIVE-C's note, assessment and plan. Prognosis is very poor. - Physical Exam Vital Signs Temp Pulse Resp BP Pulse Ox 97.5 F L 89 16 101/57 L 96 04/24/18 09:48 04/24/18 11:35 04/24/18 11:30 04/24/18 09:48 04/24/18 09:54 Oxygen Flow Rate (L/min) 6 Oxygen Delivery Method Nasal Cannula Weight: 186 lb 4.65 oz Body Mass Index (BMI) 26.7 Intake and Output for Last 24 Hours Intake Total 120 / 120 1674 / 1674 Output Total 4100 / 4100 Balance 120 / 120 -2426 / -2426 Laboratory Tests Past 24 Hrs WBC RBC Hgb Hct MCV MCH MCHC RDW RDW Differential Plt Count MPV WBC RBC Hgb Hct WBC 9.7 RBC 4.28 L Hgb 12.0 L Hct 34.7 L MCV 81.1 MCH 28.0 Code Visit Inpatient E AND M: [id number] Disch Hosp 04/24/18 1323 <Electronically signed by Jaylin Elkins CITY DETECTIVE-C> Date Jaylin Elkins CITY DETECTIVE-C 04/24/18 1533<Electronically signed by Swati Waddell MD> Cosigner Signature (if applicable): Date Swati Waddell MD CC: NATALIIA Serna; CITY DETECTIVERobert Elkins; Swati Waddell MD Signed CONSULTATION Observed: 04/24/2018 Status: F Source: [place] 1:58 PM [facility] REPOSIT[facility] Medical Records Department [address] [place] [address] Consultation 04/24/18 0714 MR#: [id number] Acct: [id number] Name: JANELLE PAULA Rep #: [id number] : 1965 52 From: Lucille Martinez DO PCP: NATALIIA Baer Status: ADM IN Y Location: [place] [address] Consultation - Renal 04/24/18 PCP/ Referring MD: Requesting physician: Dr Waddell Primary care physician: NATALIIA Baer Reason for Consultation:: [place], hyponatremia, hyperkalemia - History of Present Illness History of Present Illness: The patient is a 52 year old M with a history of Head and neck SCC, colon cancer in 2013 with liver mets, failed to f/u with treatment until recently presenting with increased abdominal distension and leg swelling. He was discharged from [facility] on April 16 after paracentesis with lasix and aldactone for his ascites. He was scheduled for repeat outpt paracentesis yesterday but instead was readmitted for increased ascites, leg swelling, acute liver failure and renal failure with hyperkalemia. Baseline creatinine was 0.6 on April 16. Creatinine on admission 3.2 to 4.19 today. He had a CT of chest and abdomen with iv contrast during March hospitalization. Potassium elevated at 6 treated with kayexalate. His ammonia level was elevated with hepatic encephalopathy. He is jaundiced. He complains of the severe leg pain. He has been taking percocet and tylenol for pain. He had decreased urine output since weekend. Denies nausea, vomiting, abdominal pain. Denies shortness of breath. Sodium level low on admit at 123 improved to 127 with iv hydration. Urine sodium low at 11, UCr 165. He was scheduled to start chemotherapy on May 04. He is a poor historian and states just wants to be left alone and go home. He and his girlfriend has met with palliative care. They have declined hospice care. - Allergies Allergies: Allergies shellfish derived Allergy (Verified 04/23/18 10:36) Itching shrimp Allergy (Verified 04/23/18 13:41) Itching - Current Medications Current Medications: Current Medications Albuterol () 10 mg INHALATION X1 ONE Stop: 04/24/18 07:16 Albuterol Sulfate (Ventolin Aerosols) 2.5 mg INHALATION Q4H PRN PRN PRN Reason: WHEEZING Citalopram Hydrobromide (Celexa) 20 mg PO DAILY KUMAR Dextrose (D50w Syringe) 25 gm IV X1 ONE Stop: 04/24/18 07:16 Calcium Gluconate 1 gm/ N/A 10 mls @ 0 mls/hr IV X1 KUMAR Insulin Human Lispro (Humalog Kwikpen (Bkc)) 10 unit SC X1 ONE Stop: 04/24/18 07:16 Lactulose (Chronulac, Cephulac) 20 gm PO BID KUMAR Last Admin: 04/23/18 22:35 Dose: 20 gm Magnesium Hydroxide (Milk Of Magnesia) 30 ml PO DAILY PRN PRN PRN Reason: Constipation Ondansetron HCl (Zofran) 8 mg PO Q8H PRN PRN PRN Reason: NAUSEA Oxycodone HCl (Oxyir) 5 mg PO Q4H PRN PRN PRN Reason: PAIN Last Admin: 04/23/18 15:32 Dose: 5 mg Pantoprazole Sodium (Protonix) 20 mg PO DAILY [facility] Sodium Chloride () 5 - 30 ml IV UD PRN PRN Reason: SALINE FLUSH Sodium Polystyrene Sulfonate (Kayexalate) 30 gm PO X1 ONE Stop: 04/24/18 07:16 - Past Surgical History Surgical History: - - hemicolectomy - Social History Smoking Status: Current every day smoker - Family History Maternal History Items: No pertinent history Paternal History Items: No pertinent history Review of Systems Constitutional: Reports: Anorexia, Weakness, Fatigue. Denies: Chills, Fever Eyes: Denies: Vision Change Cardiovascular: Reports: Edema. Denies: Chest Pain Respiratory: Denies: Cough, Shortness of Breath Gastrointestinal: Reports: Abdominal Pain, - - distension, paracentesis last admit. Denies: Constipation, Diarrhea, Nausea, Vomiting Genitourinary: Reports: - - decreased urine output over weekend Musculoskeletal: Reports: - - weakness, leg swelling, pain Skin: Denies: Rash Neurological: Reports: Balance problems, Confusion. Denies: Tremor, Seizures Psychiatric: Reports: Depression Hematologic/ Lymphatic: Reports: - - head and neck cancer, colon cancer - Physical Exam General: Alert, Cooperative, Confused, Lethargic, - - encephalopathic, cachectic HEENT: PERRLA, EOMI, - - jaundiced, icteric Oral: Dry Mucosa Neck: No JVD Lungs: Clear to auscultation, Diminished Cardiovascular: Regular rate Abdomen: Bowel Sounds Present, Distended, Tender, - - tense ascites Extremities: Edema Skin: No rashes, - - tattoo Musculoskeletal: Cachexia, Muscle Wasting Neurological: - - generalized weakness, debilitated, no asterixis Psych/Mental Status: Flat Affect, Depressed, - - encephalopathic Vital Signs Temp Pulse Resp BP Pulse Ox 98.0 F 87 19 H 115/64 97 04/24/18 05:00 04/24/18 05:00 04/24/18 05:00 04/24/18 05:00 04/24/18 05:00 Oxygen Flow Rate (L/min) 6 Oxygen Delivery Method Bi-pap Weight: 84.5 kg Body Mass Index (BMI) 26.7 Intake and Output for Last 24 Hours Intake Total 120 / 120 1024 / 1024 Output Total 150 / 150 Balance 120 / 120 874 / 874 Laboratory Tests Past 24 Hrs WBC 10.8 RBC 4.28 L Hgb 11.9 L WBC RBC Hgb Hct MCV MCH MCHC RDW RDW Differential Plt Count MPV Immature Gran % (Auto) WBC RBC Hgb Hct MCV WBC RBC Hgb Hct MCV MCH MCHC Clinical Impression(s) from Imaging Studies Chest X-Ray 04/23/18 23:25 IMPRESSION: Mild bibasilar atelectasis Electronically Signed: Tu Glass MD at 23:41 EST , Service support , Assessment/Plan All Active Problems Ascites (Acute) Abdominal swelling (Acute) Swelling of both lower extremities (Acute) Colon cancer metastasized to liver (Acute) 1. Acute kidney injury likely due to prerenal event from hypoperfusion state from liver failure, hepatorenal syndrome, diuretic therapy. Recent IV contrast exposure on 04/14 during last hospitalization. Baseline creatinine 0.6 increased to 3.2 on admission now at 4.19 with oliguria. Fractional excretion of sodium < 1%. Patient not a dialysis candidate due to his terminal condition with head and neck cancer, colon cancer with metastasis to the liver. His overall prognosis is grave. Despite our discussion with the patient he has declined on hospice at this time. He is not a candidate for chemotherapy due to his liver failure and kidney failure. hospitalist and oncology concurs with this. 2. Acute hyperkalemia due to renal failure, Aldactone discontinued. Medical management at this time. 3. Hyponatremia likely due to volume expansion, sodium avid state with hepatorenal syndrome. 4. Colon cancer with liver metastasis, head and neck cancer. History of noncompliance with his treatments in 2013. 5. Acute liver failure with ascites, elevated INR, hepatic encephalopathy. Acetaminophen level within normal limits. 6. Overall prognosis grave. Recommend hospice. Discussed with hospitalist and oncology 04/24/18 6585 <Electronically signed by Lucille Martinez DO> Date Lucille Martinez DO Cosigner Signature (if applicable): Date CC: CITY DETECTIVE-Bobby Serna; Lucille Martinez DO; Neville Ji DO; Arlyn Flynn MD; Swati Waddell MD Signed DISCHARGE INSTRUCTION Observed: 04/24/2018 Status: F Source: [place] 11:49 AM [facility] REPOSITORY [facility] Medical Records Department [address] [place] [address] Instructions for Home/Discharge Instructions 04/24/18 1148 MR#: [id number] Acct: [id number] Name: JANELLE PAULA Rep #: [id number] : 1965 52 From: Jaylin WILLIAM PCP: NATALIIA Baer Status: ADM IN You will use the following diet at home:: No restrictions Allergies/Adverse Reactions: Allergies shellfish derived Allergy (Verified 04/23/18 10:36) Itching shrimp Allergy (Verified 04/23/18 13:41) Itching Medications to take at Discharge Albuterol Sulfate [Ventolin Hfa] 2 puff IH Q4H PRN PRN 04/14/18 Citalopram [Celexa] 20 mg PO DAILY 04/14/18 Lisinopril 20 mg PO DAILY 04/14/18 Omeprazole 20 mg PO DAILY 04/14/18 Ondansetron [Zofran Odt] 8 mg PO Q8H PRN PRN 04/14/18 Furosemide [Lasix] 20 mg PO DAILY 04/23/18 Oxycodone [Oxyir] 5 - 10 mg PO Q4H PRN PRN 04/23/18 Spironolactone 100 mg PO DAILY 04/23/18 Primary Care Physician: Wai Serna NP-C [Primary Care Provider] - Test Results: Test results from this visit will be discussed in further detail at your follow-up appointment, if applicable. Proposed Discharge Date: 04/24/18 04/24/18 1149 <Electronically signed by Jaylin WILLIAM> Date Jaylin WILLIAM CC: NATALIIA Serna; Lucille Martinez DO; Neville Ji DO; Arlyn Flynn MD PROTHROMBIN TIME W/INR Collected: 04/24/2018 Status: F Source: [place] 5:35 AM [facility] REPOSITORY TYPE CODE TESTS RESULT OUT OF RANGE REFERENCE UNITS LAB L300.4150 11.7-14.9 SECONDS High PROTIME 20.8 LAB L300.4200 Normal INR 1.8 Performed By: #### L300.3900 #### [facility] [address] [place], [address] CBC W/DIFF, AUTOMATED Collected: 04/24/2018 Status: F Source: [place] 5:35 AM [facility] REPOSITORY TYPE CODE TESTS RESULT OUT OF RANGE REFERENCE UNITS LAB L100.1000 4.4-11.0 K/mm3 Normal WBC 9.7 LAB L100.1200 4.6-6.2 M/mm3 Low RBC 4.28 LAB L100.1300 13.0-16.5 g/dl Low HGB 12.0 LAB L100.1400 40-54 % Low HCT 34.7 LAB L100.1500 80-94 fL Normal MCV 81.1 LAB L100.1600 27.0-32.0 pg Normal MCH 28.0 LAB L100.1700 32-36 g/gl Normal MCHC 34.6 LAB L100.1810 11.6-14.6 % High RDW CV 17.7 LAB L100.1820 35.1-43.9 fl High RDW SD 49.3 LAB L100.1900 150-450 K/mm3 Normal PLT 313 LAB L100.2000 6.2-12.0 fl Normal MPV 11.2 LAB L100.2100 47-70 % High NEUT% 87.9 LAB L100.2200 19-41 % Low LY% 3.8 LAB L100.2300 0-10 % Normal MONO% 7.9 LAB L100.2400 0-5 % Normal EO% 0.1 LAB L100.2500 0-1 % Normal BASO% 0.0 LAB L100.2550 0.0-0.9 % Normal IM GRAN % 0.300 Result Comment: IG% - Immature Granulocytes (promyelocytes, myelocytes and metamyelocytes) > 1% indicates that a LEFT SHIFT is Present. LAB L100.2620 2.0-7.7 X10 3/uL High Absolute Neut 8.5 LAB L100.2720 0.83-4.51 X10 3/ul Low Absolute Lymph 0.37 Performed By: #### L100.0100 #### [facility] [address] [place], [place], [id number] COMPREHENSIVE METABOLIC Collected: 04/24/2018 Status: F [facility] REPOSIT[facility] TYPE CODE TESTS RESULT OUT OF RANGE REFERENCE UNITS LAB L501.0100 74-106 mg/dL Normal GLU 101 Result Comment: Fasting Glucose result from 100 to 125 mg/dL suggests IMPAIRED HOMEOSTASIS per A.D.A. criteria. Please note revised GLUCOSE reference range effective 2017. LAB L501.1000 7-18 mg/dL High BUN 82 LAB L501.1100 0.70-1.30 mg/dL High CREAT,SERUM 4.19 Result Comment: The validity of the calculated GFR AND GFRAA in patients over 70 years has not been determined. Clinical correlation is essential. LAB L501.1110 >60 mL/min Low EST GFR 16 Result Comment: Non- GFR Calc LAB L501.1115 >60 mL/min Low EST GFR - AA 19 Result Comment: GFR Calc LAB L501.1255 ml/min Normal Estimated CRCL 21.29 LAB L501.1300 10-20 RATIO Normal BUN/CRE 19.6 LAB L501.1500 6.4-8. g/dL Normal 2 T PROT 7.2 LAB L501.1800 3.2-5. g/dL Low 0 ALB 2.1 LAB L501.1950 2.2-4. g/dL High 2 GLOB 5.1 LAB L501.2000 0.9-2. RATIO Low 4 A/G 0.4 LAB L501.2200 8.5-10 mg/dL Low .1 CA 8.0 LAB L501.4100 15-37 U/L High AST 699 LAB L501.4305 45-117 U/L High ALK P 1712 LAB L501.4405 16-61 U/L High ALT 449 LAB L501.4600 0.20-1 mg/dL High .00 T BILI 9.00 LAB L501.5300 136-14 mmol/L Low 5 NA 127 LAB L501.5600 3.5-5. mmol/L High 1 K alert 6.2 Result Comment: Critical Result(s) Called at: 06:40:51 04/24/2018 by: Osmany Alvarado RN ([facility]). LAB L501.5900 98-107 mmol/L Low CL 93 LAB L501.6100 21.0-32.0 mmol/L Low CO2 17.0 LAB L501.6200 5-15 High GAP 17 Performed By: #### L500.4050 #### [facility] [address] [place], [address] URINE SODIUM Collected: 04/24/2018 Status: F Source: [place] 2:15 AM [facility] REPOSITORY Order Comment: Order Date: 04/24/18 TYPE CODE TESTS RESULT OUT OF RANGE REFERENCE UNITS LAB L501.5500 Not Establ. mmol/L Normal UR NA 11 Performed By: #### L501.5500 #### [facility] [address] [place], [address] OSMOLALITY, URINE Collected: 04/24/2018 Status: F Source: [place] 2:15 AM [facility] REPOS[facility] Order Comment: Order Date: 04/24/18 TYPE CODE TESTS RESULT OUT OF RANGE REFERENCE UNITS LAB L501.7400 mOsm/KG Normal 400 OSMOLALITY,U R Result Comment: OSMOLALITY URINE REFERENCE INTERVALS 24-hour Urine 300 - 900 mOsm/kg Random Urine 50 - 1400 mOsm/kg After 12 Hr fluid restriction >850 mOsm/kg Performed By: #### L501.7400 #### [facility] [address] [place], [address] CREATININE, URINE Collected: 04/24/2018 Status: F Source: [place] (RANDOM) 2:15 AM [facility] REPOS[facility] Order Comment: Order Date: 04/24/18 TYPE CODE TESTS RESULT OUT OF RANGE REFERENCE UNITS LAB L501.1200 NO RANGE EST. mg/dL Normal UR CREAT 165.00 Performed By: #### L501.1200 #### [facility] [address] [place], [address] PARACENTESIS WITH US Observed: 04/24/2018 Status: F Source: [place] 12:00 AM [facility] REPOSITORY [facility] Imaging Services [address] [place] [address] Paracentesis with US MR#: [id number] Acct: [id number] Name: JANELLE PAULA Rep #: [id number] : 1965 M 52 From: Flakito Justice MD PCP: NATALIIA Baer Status: ADM IN Study: Paracentesis with US Date of Exam: 04/24/18 Exam# [id number] Ordering Dr: Swati Waddell MD PROCEDURE: Ultrasound guided paracentesis. DATE OF EXAMINATION: April 24, 2018. INDICATION: Male, 52 years old. Ascites. PHYSICIAN: Flakito Justice M.D. TECHNIQUE: The risks, benefits, and alternatives to the procedure were explained to the patient. The specific risks of bleeding, infection, and damage to bowel were detailed and accepted. Witnessed informed consent was obtained. The abdomen was ultrasonographically surveyed. An appropriate pocket of fluid was identified at the right lower quadrant. The skin were cleaned and prepped in the usual sterile fashion. Using ultrasound guidance, the peritoneal cavity was accessed with a 5-Mongolian paracentesis needle/catheter system. The trocar was removed. A total of 3950 ml of alex-colored fluid were removed from the peritoneal cavity. The catheter was removed and a sterile dressing was applied. The procedure was well tolerated. US/Paracentesis with US IMPRESSION: Ultrasound guided paracentesis. Electronically Signed: Flakito Justice MD at 11:11 EST Tel [phone], Service support , CC: EDIEC Wai Serna; Swati Waddell MD [employer] Developer: Signed CHEST 1 VIEW Observed: 04/23/2018 Status: F Source: ANGELITA (PORTABLE) 11:18 PM [facility] REPOSIT[facility] Imaging Services [address] [place] [address] Chest 1 View (Portable) MR#: [id number] Acct: [id number] Name: JANELLE PAULA Heide Rep #: [id number] : 1965 M 52 From: Tu Glass MD PCP: NATALIIA Baer Status: ADM IN Study: Chest 1 View (Portable) Date of Exam: 04/23/18 Exam# [id number] Ordering Dr: Vincent Perry MD STUDY: X-RAY CHEST REASON FOR EXAM: Male, 52 years old. Short of breath TECHNIQUE: AP portable COMPARISON: None. FINDINGS: There is mild atelectasis at both lung bases.. There is no demonstrated pleural abnormality. Normal size heart. Normal mediastinum and lila. Normal visualized pulmonary arteries. Normal visualized aortic arch and descending thoracic aorta. Mediport catheter noted on the right with tip in the right atrium Dorsal spine demonstrates spondylosis. Normal visualized ribs, clavicles, and shoulders. There is no demonstrated abnormality of the visualized soft tissue structures of the upper abdomen. RAD/Chest 1 View (Portable) IMPRESSION: Mild bibasilar atelectasis Electronically Signed: Tu Glass MD at 23:41 EST , Service support , CC: NATALIIA Serna; Vincent Perry MD [employer] Developer: Signed RENAL PROFILE Collected: 04/23/2018 Status: F Source: [place] 6:36 PM [facility]POS[facility] TYPE CODE TESTS RESULT OUT OF RANGE REFERENCE UNITS LAB L501.0100 74-106 mg/dL Normal GLU 91 Result Comment: Please note revised GLUCOSE reference range effective 2017. LAB L501.1000 7-18 mg/dL High BUN 72 LAB L501.1100 0.70-1.30 mg/dL High CREAT,SERUM 3.29 Result Comment: The validity of the calculated GFR AND GFRAA in patients over 70 years has not been determined. Clinical correlation is essential. LAB L501.1110 >60 mL/min Low EST GFR 21 Result Comment: Non- GFR Calc LAB L501.1115 >60 mL/min Low EST GFR - AA 26 Result Comment: GFR Calc LAB L501.1255 ml/min Normal Estimated CRCL 27.12 LAB L501.1300 10-20 RATIO High BUN/CRE 21.9 LAB L501.1800 3.2-5. g/dL Low 0 ALB 2.1 LAB L501.2200 8.5-10 mg/dL Low .1 CA 7.8 LAB L501.2300 2.5-4. mg/dL High 9 PHOS 7.9 LAB L501.5300 136-14 mmol/L Low 5 NA 124 Result Comment: Critical Result(s) Called at: 19:16:51 04/23/2018 by: Sarath Martell LAB L501.5600 3.5-5.1 mmol/L High alert K 6.1 Result Comment: Critical Result(s) Called at: 19:17:49 04/23/2018 by: [facility] LAB L501.5900 98-107 mmol/L Low CL 93 LAB L501.6100 21.0-32.0 mmol/L Low CO2 17.0 Performed By: #### L500.3600 #### [facility] [place], [address] AMMONIA Collected: 04/23/2018 Status: F Source: [place] 6:36 PM [facility] TYPE CODE TESTS RESULT OUT OF REFERENCE UNITS RANGE LAB L503.5510 11-32 umol/L High AMMONIA 91.0 Performed By: #### L503.5510, L501.8400 #### [facility] [address] [place], [address] ACETAMINOPHEN (TYLENOL) Collected: 04/23/2018 Status: F Source: [place] LEVEL 6:36 PM [facility] REPOS[facility] TYPE CODE TESTS RESULT OUT OF REFERENCE UNITS RANGE LAB L501.8400 10.0-30.0 ug/mL ACETAMINOPHEN Low < 2.0 Performed By: #### L503.5510, L501.8400 #### [facility] [place], [address] HISTORY AND PHYSICAL Observed: 04/23/2018 Status: F Source: [place] EXAM 4:06 PM [facility] REPOS[facility] Medical Records Department [address] [place] [address] History and Physical 04/23/18 1249 MR#: [id number] Acct: [id number] Name: JANELLE PAULA Rep #: [id number] : 1965 52 From: Swati Waddell MD PCP: NATALIIA Baer Status: ADM IN Y Location: [place] [address] History of Present Illness Date of Admission: 04/23/18 Chief Complaint: Pain and swelling in lower extremities The patient is a 52 year old M with a history of throat, neck and colon cancer with liver metastasis. He also has a history of hypertension. He was admitted through the ED on 04/23/2018 with a complaint of painful bilateral lower extremity swelling. According to patient, he was scheduled to undergo outpatient abdominal paracentesis in the [facility] radiology units. Whilst a complaint of the severe pain in his lower extremities and so he was brought to the ED. Patient was recently diagnosed with cancer with metastasis and has been following up with Dr. Godoy. He states he was told they could start chemotherapy on 04 May. Complaint of severe abdominal swelling and severe fatigue. He admitted to jaundice but denied any nausea vomiting. Patient was confused and most of the history was taken from his significant other and her knees. Was very drowsy throughout the review. Blood pressure was noted to be 112/65 in the ED and respiratory rate was 19 with temperature of 97.3. Chemistry was significant for sodium of 123 and potassium of 5.8 with bicarb of 20. Creatinine was 3.2 to the baseline of less than 1 from a week ago. CBC showed hemoglobin of 11.9 and no leukocytosis and platelets of 262. Is been admitted to be managed for metastatic cancer with acute metabolic encephalopathy likely due to hepatic encephalopathy as well as hyponatremia and hyperkalemia. [] Past Medical History Allergies shellfish derived Allergy (Verified 04/23/18 10:36) Itching Home Medications: Ambulatory Orders Medication Instructions Recorded Surgical History: - - hemicolectomy Psychiatric History: No pertinent psych hx Lives: Spouse/ Significant Other Smoking Status: Current every day smoker - *Family History Maternal History Items: No pertinent history Paternal History Items: No pertinent history Review of Systems Constitutional: Reports: Anorexia, Malaise, Weakness, Fatigue. Denies: Fever Eyes: Denies: Blurred vision HEENT: Denies: Head Aches, Sinus Congestion, Sinus Drainage Cardiovascular: Denies: Chest Pain, Palpitations Respiratory: Denies: Cough, Shortness of Breath, Shortness of breath at rest, Sputum production Gastrointestinal: Reports: Abdominal Pain, - - Abdominal distention. Denies: Constipation, Diarrhea, Dyspepsia, Nausea, Melena, Vomiting Genitourinary: Denies: Dysuria Musculoskeletal: Reports: Leg Pain. Denies: Arm Pain, Back Pain, Joint Pain Skin: Reports: Jaundice. Denies: Rash, Wounds Neurological: Reports: Confusion. Denies: Balance problems Psychiatric: Denies: Anxiety, Depression, Homicidal Ideations, Suicidal Ideations Hematologic/ Lymphatic: Denies: Easy Bruising, Easy Bleeding VTE Information - Inpt Only VTE Present on Admission: No VTE Mechan Device Prophylaxis: SCD's - Physical Exam General: Confused, Lethargic, - - Patient is very weak, and confused, though he is able to respond to questions HEENT: Atraumatic, PERRLA, EOMI, Normocephalic, - - 3+ jaundice of conjuctivae and skin Oral: Dry Mucosa Neck: Supple, No JVD, Negative Carotid Bruits Lungs: Clear to auscultation, Normal air movement, No rhonchi, No wheeze, No rales Cardiovascular: Regular rate, Regular Rhythm, Normal S1, Normal S2, No murmurs Abdomen: Distended - positive fluid thrill. Unable to assess for hepatomegaly due to ascites Extremities: - - 3+ bilateral pitting pedal edema from foot up to knees; very tender to palpation. Skin: - - erythema and small weeping ulcers on lower extremities. Musculoskeletal: No Tenderness to Palpation of Joints or Extremities Lymphatic: No Cervical, Supraclavicular, or Inguinal Adenopathy Neurological: Cranial nerves II-XII grossly intact, - - positive asterixis; patient very lethargic. Psych/Mental Status: - - lethargic, Alert and oriented to time, place, person, mood and affect Vital Signs Temp Pulse Resp BP Pulse Ox 97.3 F L 99 24 H 124/88 H 94 04/23/18 10:36 04/23/18 12:19 04/23/18 12:19 04/23/18 12:19 04/23/18 12:19 Oxygen Delivery Method Room Air Weight: 180 lb Body Mass Index (BMI) 25.8 Laboratory Tests Past 24 Hrs WBC 10.8 RBC 4.28 L Hgb 11.9 L Hct 35.8 L MCV 83.6 MCH 27.8 MCHC 33.2 RDW 17.2 H Assessment/Plan All Active Problems Ascites (Acute) Abdominal swelling (Acute) Swelling of both lower extremities (Acute) Colon cancer metastasized to liver (Acute) 52 y/o male admitted with a complaint of painful LE swelling for the past few weeks 1. 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 * Has massive malignant ascites and came in for drainage and has associated lower extremity edema. * This is all due to the malignancy and patient was counseled so. * Admit to PCU with telemetry * Hydrate with IV fluids will be gentle with hydration on account of significant ascites and liver metastases. * Urgent oncology consulted. Patient was told that he could start oncology as soon as possible and actually has a port in the right subclavian region. However patient is a critically ill that I do not think he would last until the when he is supposed to start chemotherapy. Additionally, and this is palliative chemotherapy I really do not know how much of this cancer can be cured. * 2. Acute hepatic encephalopathy due to liver metastases * Patient is very to be jaundiced and has a positive hepatic flap * will check liver enzymes * check ammonia level * give lactulose * 3. Malignant ascites due to metastatic colon and lung cancer * Was due for therapeutic paracentesis but this was aborted on account of him not feeling well. * Per radiology staff, will need 2 units of FFP's before they can do paracentesis tomorrow if it still required. * will check coagulation panel and give 2 units of FFPs tomorrow morning * * 4. VIRGINIA: * Cr is 3.22; baseline is 0.87 from 2 weeks ago. * This may be hepato-renal syndrome from severe liver disease and severe ascites * should improve with administration of IVF and also with therapeutic paracentesis * 5. Hyponatremia: * Na is 123; likely due to fluid overload from ascites. * Will monitor with therapeutic paracentesis * will consult nephrology o/a of hyponatremia and VIRGINIA * 6. Hyperkalemia: K is 5.8. Will give kayexalate and monitor. He may also be suffering from some adrenal insufficiency in light of hyperkalemia and hyponatremia. 7. Non anion gap metabolic acidosis * Bicarb is 20 and anion gap is 13. Likely due to kidney impairment. * May possibly improve with treatment of VIRGINIA * 8. Hypertension: On lisinopril and spironolactone. Will hold lisinopril and spironolactone o/a of VIRGINIA and hyperkalemia 9. Depression: on citalopram DVT prophylaxis: SCDs Code status: DNRCCA * Patient, his significant other and his knees were counseled extensively about patient's very very poor prognosis. There were counseled about differences between full code, DNR CCA and DNR CCA. Patient elects to be DNRCCA * His significant other does not seem to have clear insight about the severity of his condition and sees that she wants him to get well so that he can be treated for the cancer. I explained to her that patient has stage IV metastatic liver and colon cancer and has deteriorated significantly within a week. He is very lethargic has hyperkalemia and hyponatremia and also has the severe lower extremity edema and is not able to do much for himself. I counseled him that the best option would be to consider palliative care which that was ready been counseled about by the ED doctor. Palliative care will be consulted and patient actually stated that if we did not think he would get what he would want to go home and be made comfortable. I counseled him that as an option he could discuss with palliative care when they reviewed him later today. Again, prognosis is very poor. * Total face to face time- 20 mins Code Visit Inpatient E AND M: 14206 Init Hosp L3 Procedures: 53776 Advncd Care Plan 30 Min 04/23/18 1606 <Electronically signed by Swati Waddell MD> Date wSati Waddell MD Cosigner Signature: Date (if applicable) CC: NATALIIA Serna; Swati Waddell MD Signed EMERGENCY DEPARTMENT Observed: 04/23/2018 Status: F Source: [place] SUMMARY 3:07 PM [facility] REPOSITORY [facility] Medical Records Department [address] [place] [address] Emergency Department Summary 04/23/18 1104 MR#: [id number] Acct: [id number] Name: JANELLE PAULA Rep #: [id number] : 1965 52 From: Tu Garner MD PCP: NATALIIA Baer Status: ADM IN - ER Visit Summary Date of Service: 04/23/18 Chief Complaint: Bilateral leg swelling History of Present Illness: The patient is a 52 M history of both throat, neck, colon CA with liver metastases. Today he was going to undergo an outpatient abdominal paracentesis in a sitting down here for evaluation. Family states that he has had leg swelling for at least 3 weeks if not longer. 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 He states he has pain in both legs. Physical Examination: Vital signs stable afebrile. Initial blood pressure 112/65. H EENT exam dry mucous membranes. Neck his cervical lymphadenopathy from his cancer. Trachea midline. Lungs clear bilaterally. Diminished in the bases. Heart regular rhythm no murmur. Abdomen taut and distended from ascites. Extremities he has 3+ pitting edema both lower extremities equal and symmetrical. He has bruising both lower legs. Neurologically is awake. He is alert he is answering questions. Skin he has bruising. He is jaundiced. He has scleral icterus. Test Results: None. Electrolytes show sodium of 123 significant lower than his baseline. Potassium of 5.8. CO2 is 20. BUN is 68 and creatinine 3.22 which are acute renal insufficiency. Also dehydration. Emergency Department Course and Treatment: Patient treated with IV morphine and Zofran. Liter normal saline for his hyponatremia and dehydration. Treatment Plan: Did speak to Dr. James Godoy the patient's oncologist. Spoke with director social service for palliative care consultation. Hospitalist on page for admission. Pending abdominal paracentesis to remove ascites. Disposition: Admission Impression: History of colon CA with liver metastases and throat CA with metastases Acute severe dehydration Acute hyperkalemia Acute hyponatremia Chronic anemia. This note was generated with evolsoation software. It may contain incorrect words, spelling, and punctuation that were not noted in review of the chart prior to signing ED Disposition - Plan for ED Patient: Chief Complaint: Edema Referrals: Wai Serna, NATALIIA [Primary Care Provider] - What to do if you have Problems For any increased pain, shortness of breath, bleeding, nausea or vomiting, chest pain, or any unexpected problems, contact your Primary Care Provider. Call [facility] ([phone]) or report to the closest Emergency Room. Call 911 if necessary. 04/23/18 1507 <Electronically signed by Tu Garner MD> Date Tu Garner MD Cosigner Signature (If Indicated): Date CC: NATALIIA Serna TYPE AND SCREEN Collected: 04/23/2018 Status: F Source: [place] 2:46 PM [facility] REPOSITORY Order Comment: Comments: will send to out pt to be drawn today for adm toshia Has pt arrived? Y Reason for Type AND Screen/Red Cells: ROUTINE TYPE CODE TESTS RESULT OUT OF RANGE REFERENCE UNITS LAB B10.0800 B Normal BLOOD TYPE GEL POSITIVE LAB B100.4000 Normal Antibody NEGATIVE Screen Performed By: #### B101.7450 #### [facility] [address] [place], [address] CBC W/DIFF, AUTOMATED Collected: 04/23/2018 Status: F Source: [place] 11:30 AM [facility] REPOSIT[facility] TYPE CODE TESTS RESULT OUT OF RANGE REFERENCE UNITS LAB L100.1000 4.4-11.0 K/mm3 Normal WBC 10.8 LAB L100.1200 4.6-6.2 M/mm3 Low RBC 4.28 LAB L100.1300 13.0-16.5 g/dl Low HGB 11.9 LAB L100.1400 40-54 % Low HCT 35.8 LAB L100.1500 80-94 fL Normal MCV 83.6 LAB L100.1600 27.0-32.0 pg Normal MCH 27.8 LAB L100.1700 32-36 g/gl Normal MCHC 33.2 LAB L100.1810 11.6-14.6 % High RDW CV 17.2 LAB L100.1820 35.1-43.9 fl High RDW SD 51.4 LAB L100.1900 150-450 K/mm3 Normal PLT 262 LAB L100.2000 6.2-12.0 fl Normal MPV 11.1 LAB L100.2100 47-70 % High NEUT% 83.5 LAB L100.2200 19-41 % Low LY% 10.3 LAB L100.2300 0-10 % Normal MONO% 5.8 LAB L100.2400 0-5 % Normal EO% 0.1 LAB L100.2500 0-1 % Normal BASO% 0.0 LAB L100.2550 0.0-0.9 % Normal IM GRAN % 0.300 Result Comment: IG% - Immature Granulocytes (promyelocytes, myelocytes and metamyelocytes) > 1% indicates that a LEFT SHIFT is Present. LAB L100.2620 2.0-7.7 X10 3/uL High Absolute Neut 9.0 LAB L100.2720 0.83-4.51 X10 3/ul Normal Absolute Lymph 1.12 Performed By: #### L100.0100 #### [facility] [address] [place], [place], [address] BASIC METABOLIC Collected: 04/23/2018 Status: F Source: [place] PROFILE ([facility]) 11:30 AM [facility] REPOS[facility] TYPE CODE TESTS RESULT OUT OF RANGE REFERENCE UNITS LAB L501.0100 74-106 mg/dL Normal GLU 96 Result Comment: Please note revised GLUCOSE reference range effective 2017. LAB L501.1000 7-18 mg/dL High BUN 68 LAB L501.1100 0.70-1.30 mg/dL High CREAT,SERUM 3.22 Result Comment: The validity of the calculated GFR AND GFRAA in patients over 70 years has not been determined. Clinical correlation is essential. LAB L501.1110 >60 mL/min Low EST GFR 22 Result Comment: Non- GFR Calc LAB L501.1115 >60 mL/min Low EST GFR - AA 26 Result Comment: GFR Calc LAB L501.1255 ml/min Normal Estimated CRCL 27.71 LAB L501.1300 10-20 RATIO High BUN/CRE 21.1 LAB L501.2200 8.5-10 mg/dL Normal .1 CA 8.5 LAB L501.5300 136-14 mmol/L Low 5 NA 123 LAB L501.5600 3.5-5. mmol/L High 1 K 5.8 LAB L501.5900 98-107 mmol/L Low CL 90 LAB L501.6100 21.0-3 mmol/L Low 2.0 CO2 20.0 LAB L501.6200 5-15 Normal GAP 13 Performed By: #### L500.2500 #### [facility] [address] [facility] [place], [address] PROTHROMBIN TIME W/INR Collected: 04/23/2018 Status: F Source: [place] 11:30 AM [facility] REPOS[facility] TYPE CODE TESTS RESULT OUT OF RANGE REFERENCE UNITS LAB L300.4150 11.7-14.9 SECONDS High PROTIME 19.0 LAB L300.4200 Normal INR 1.6 Performed By: #### L300.3900 #### [facility] [address] [facility] [place], [address] AST(SGOT) Collected: 04/23/2018 Status: F Source: [place] 11:30 AM [facility] REPOSITORY TYPE CODE TESTS RESULT OUT OF RANGE REFERENCE UNITS LAB L501.4100 15-37 U/L High AST 1137 Performed By: #### L501.4100, L501.4305, L501.4405 #### [facility] [address] [place], [address] ALKALINE PHOSPHATASE Collected: 04/23/2018 Status: F Source: [place] 11:30 AM [facility] REPOSITORY TYPE CODE TESTS RESULT OUT OF RANGE REFERENCE UNITS LAB L501.4305 45-117 U/L High ALK P 1793 Performed By: #### L501.4100, L501.4305, L501.4405 #### [facility] [address] [place], [address] ALANINE AMINOTRANSFERAS Collected: 04/23/2018 Status: F Source: [place] (SGPT) 11:30 AM [facility] REPOSITORY TYPE CODE TESTS RESULT OUT OF RANGE REFERENCE UNITS LAB L501.4405 16-61 U/L High ALT 575 Performed By: #### L501.4100, L501.4305, L501.4405 #### [facility] [address] [place], [address] ABDOMEN LIMITED Observed: 04/23/2018 Status: F Source: [place] 9:43 AM [facility] REPOSITORY [facility] Imaging Services [address] [place] [address] Abdomen Limited MR#: [id number] Acct: [id number] Name: JANELLE PAULA Rep #: [id number] : 1965 M 52 From: Flakito Justice MD PCP: NATALIIA Baer Status: PRE CLI Study: Abdomen Limited Date of Exam: 04/23/18 Exam# [id number] Ordering Dr: James Godoy DO STUDY: ABDOMINAL ULTRASOUND -ascites survey. REASON FOR VISIT: Male, 52 years old. Ascites and possible paracentesis. TECHNIQUE: Ultrasound evaluation of the right upper quadrant was performed with real-time and static mills-scale imaging. TECHNICAL QUALITY: Adequate. COMPARISON: None. FINDINGS: There is evidence of ascites. The patient was not feeling well and decided to go to the emergency department for assessment. The paracentesis was performed on April 24. US/Abdomen Limited IMPRESSION: Ascites survey demonstrates presence of ascites although the patient wasn't feeling well and went to the emergency room. Electronically Signed: Flakito Justice MD at 8:31 EST Tel [phone], Service support , CC: NATALIIA Serna; James Godoy DO Etl [employer] Developer: Signed PROTHROMBIN TIME W/INR Collected: 04/23/2018 Status: F Source: [place]ELITA 9:30 AM [facility] REPOSITORY TYPE CODE TESTS RESULT OUT OF RANGE REFERENCE UNITS LAB L300.4150 11.7-14.9 SECONDS High PROTIME 19.9 LAB L300.4200 Normal INR 1.7 Performed By: #### L300.3900, L300.4310 #### [facility] [address] [place], [place], [address] PARTIAL THROMBOPLAST Collected: 04/23/2018 Status: F Source: ANGELITA TIME 9:30 AM [facility] REPOSITORY TYPE CODE TESTS RESULT OUT OF REFERENCE UNITS RANGE LAB L300.4310 24.1-36.2 Seconds High PTT 40.9 Performed By: #### L300.3900, L300.4310 #### [facility] [address] [place], [place], [address] CBC-COMPLETE BLOOD CNT Collected: 04/23/2018 Status: F Source: ANGELITA NO DIFF 9:30 AM [facility] REPOSITORY TYPE CODE TESTS RESULT OUT OF RANGE REFERENCE UNITS LAB L100.1000 4.4-11.0 K/mm3 Normal WBC 10.2 LAB L100.1200 4.6-6.2 M/mm3 Low RBC 4.20 LAB L100.1300 13.0-16.5 g/dl Low HGB 11.6 LAB L100.1400 40-54 % Low HCT 35.3 LAB L100.1500 80-94 fL Normal MCV 84.0 LAB L100.1600 27.0-32.0 pg Normal MCH 27.6 LAB L100.1700 32-36 g/gl Normal MCHC 32.9 LAB L100.1810 11.6-14.6 % High RDW CV 17.2 LAB L100.1820 35.1-43.9 fl High RDW SD 52.7 LAB L100.1900 150-450 K/mm3 Normal PLT 258 LAB L100.2000 6.2-12.0 fl Normal MPV 11.3 Performed By: #### L100.0500 #### [facility] [address] [place], [address] CEA Collected: 04/16/2018 Status: F Source: [place] 3:02 PM [facility] REPOSITORY TYPE CODE TESTS RESULT OUT OF RANGE REFERENCE UNITS LAB CEA 0.0-2.9 ng/mL High CEA 131.9 Result Comment: Test analyzed by the Erik DxI method. Performed By: #### CEA #### [facility] [address] [place], [place] [address] COMP METABOLIC PANEL Collected: 04/16/2018 Status: F Source: [place] 3:01 PM [facility] REPOSITORY TYPE CODE TESTS RESULT OUT OF REFERENCE UNITS RANGE LAB TP 6.3-8.0 g/dL Low Protein, Total 6.1 LAB ALB 3.9-4.9 g/dL Low Albumin 3.0 LAB CA 8.5-10.2 mg/dL Calcium, Total 8.9 LAB TBIL 0.2-1.3 mg/dL High Bilirubin, 3.2 Total Result Comment: ICTERIC SPECIMEN LAB ALKP 38-113 U/L Alkaline High Phosphatase >1200 Result Comment: RECHECKED,SOOA=8846 U/L BY DILUTION LAB AST 14-40 U/L AST High 185 LAB GLU 74-99 mg/dL Glucose High 142 LAB BUN 7-21 mg/dL BUN 19 LAB CRET 0.73-1.22 mg/dL Low Creatinine 0.64 LAB NA 136-144 mmol/L Low Sodium 129 LAB K 3.7-5.1 mmol/L Potassium 4.3 LAB CL 97-105 mmol/L Chloride 99 LAB CO2 22-30 mmol/L Low CO2 21 LAB AGAP 9-18 mmol/L Anion Gap 9 LAB ALT 10-54 U/L ALT High 95 LAB GFRAA eGFR- Amer. >60 LAB GFRNAA . eGFR-All Other Races >60 Result Comment: eGFR (Estimated GFR) Units of measure: mL/min/1.73 meters squared eGFR is derived from the reexpressed MDRD Study equation using the following parameters: serum creatinine, age, gender and race. The creatinine assay has been calibrated to be traceable to IDMS. An eGFR <60 mL/min/1.73m2 for >3 months is consistent with chronic kidney disease. Refer to KDOQI guidelines for clinical interpretation. In patients with unstable renal function, e.g. those with acute kidney injury, the eGFR may not accurately reflect actual GFR. MAGNESIUM Collected: 04/16/2018 Status: F Source: [place] 3:01 PM [facility] REPOSITORY TYPE CODE TESTS RESULT OUT OF REFERENCE UNITS RANGE LAB MG 1.7-2.3 mg/dL Magnesium 1.9 ANGELITA ABS GR + CBC Collected: 04/16/2018 Status: F Source: [place] 3:00 PM [facility] REPOSITORY TYPE CODE TESTS RESULT OUT OF REFERENCE UNITS RANGE LAB WWBC 3.70-11.00 k/uL [place] WBC 7.74 LAB WRBC 4.20-6.00 m/uL Low [place] RBC 3.75 LAB WHGB 13.0-17.0 g/dL Low [place] Hemoglobin 10.6 LAB WHCT 39.0-51.0 % Low [place] Hematocrit 31.6 LAB WMCV 80.0-100.0 fL [place] MCV 84.3 LAB WMCH 26.0-34.0 pg [place] MCH 28.3 LAB WMCHC 30.5-36.0 g/dL [place] MCHC 33.5 LAB WRDW 11.5-15.0 % [place] High RDW 17.0 LAB WPLT 150-400 k/uL [place] Platelet Cnt 264 LAB WMPV 9.0-12.7 fL [place] MPV 10.5 Result Comment: Test performed at: [facility], [address] [place] [address] Rd[address] [place] [address]. LAB ABGRAN 1.45-7.50 k/uL Absol Gran 6.34 Count PROGRESS Observed: 04/16/2018 Status: COMPLETED Source: BIGFORK 2:13 PM [facility] REPOSITORY HNO ID: [id number] Author: James Godoy Service: (none) Author Type: Physician Type: Progress Notes Filed: 04/16/2018 4:36 PM Note Text: Diagnoses: 1) Stage IV colon cancer. K-farzad wild type. 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 HPI: The patient is a 52-yo male who had intermittent abdominal pain over year prior to presentation. Had CT at [facility] 02/03/2014. Hypodense lesion in segment 7 of liver 1 cm. Previously noted cyst in segment IVb. Irregularity of the cecum with adjacent abnormally enlarged lymph node. Largest node was right abdominal mesentery 1.[address] Nugent who performed colonoscopy 02/17/2014--Colon, proximal ascending, biopsy Invasive moderately differentiated adenocarcinoma. Underwent surgery 02/18/2014: Final pathology: 8 cm adenocarcinoma with focal mucinous diff through muscularis propria. 8 of 21 nodes positive. Metastatic nodule in omentum 2.5 cm. Positive for microsatellite instability. Other significant issue is a 6 month h/o enlarged left cervical LN. CT neck 02/17/2014 showed 2.8 cm at level IIB. Had biopsy of left pharyngeal tonstil 03/15/2014. Pathology: Poorly differentiated SCC; p16 positive. Had cutaneous SCC removed from posterior neck in 2011. Previous therapy: Colon cancer 1) Liver directed therapy; 6 foci ablated microwave 06/15/2014. 2) FOLFOX/Cetuximab x4 cycles. Previous therapy: Head and neck cancer 1) Radiation--not completed. Patient did not previously follow-up here. He was seen an oncologist in September 2016. He underwent a CT scan at [facility] on 09/27/2016. And apparently had a PET scan done in 2014 at [facility]. The CT scan from September 2016 demonstrated numerous low attenuation lesions throughout the right and left liver. There were some pleural-based small 2-3 mm nodules. No other areas of concern. Patient was advised to have an abdominal MRI. He did not undergo that procedure. Presents for ongoing oncologic management--hospital follow up. Interim history: He did not follow up for CT scans in October. He presented to the emergency room at [facility] on Saturday with complaints of increasing abdominal girth and pain. CT scan demonstrated innumerable hypodense masses scattered throughout both lobes the liver. There was marked hepatomegaly. Spleen was noted to be unremarkable. The IVC was noted to be markedly narrowed. There were small scattered lymph nodes in the retroperitoneum with prominent lymph nodes in the portal venous measuring up to 1.8 cm in size. Initial CBC showed a white count 6600. Hemoglobin 12.3 g/dL and the platelet count was 323,000. INR was 1.4. The PTT was prolonged at 43.9 seconds and the PT was prolonged at 16.7 seconds. Chemistry panel significant for sodium of 1:30. Total bilirubin was 3.3 and the AST and ALT were elevated to 200 7418 international units per liter. Alkaline phosphatase was 1858 international units per liter. Total protein was 7.4 and the albumin was 2.3. Calcium was 8.5 mg/dL. The patient underwent a diagnostic and therapeutic paracentesis on 04/15/2018. 5670 mL's of dark alex colored fluid were removed. Cytology negative for malignant cells. Patient was discharged following paracentesis. He reports his abdomen is feeling better. He still having significant pain in the lower part of the abdomen and has been using a lot of Tylenol home to supplement the Percocet he's been getting from his PCP.. No unusual bleeding or unexplained bruising. He has been eating on a regular basis. Bowels are working. No signs of GI bleeding. He's not had nausea or vomiting. PMH, medications and allergies personally reviewed by me today. Any changes documented in appropriate section. ROS: Constitutional: Denies episodes of fever and night sweats. Neuro: Denies MOTA, vertigo and imbalance. Resp: No shortness of breath at rest. CVS: Denies exertional chest pain, PND, orthopnea and LE edema. GI: See above. : No dysuria or gross hematuria. No symptoms of bladder outlet obstruction. Endo: No hot flashes. Musculoskeletal: Denies bone, back, joint and muscular pain. Heme: See above. Psych: Normal mood. PHYSICAL EXAM: Vitals: Blood pressure 129/77, pulse 96, temperature 36.3 ?C (97.4 ?F), temperature source Oral, weight 89.1 kg (196 lb 8 oz), SpO2 100 %. Chronically ill-appearing and in no acute distress. EYES: Sclerae are icteric bilaterally. ENT: Edentulous. NECK: Supple. LYMPHATIC: Firm, fixed lymphadenopathy upper left neck unchanged from previous exam. RESPIRATORY: Inspiratory breath sounds are of diminished intensity in all fernandez. CARDIOVASCULAR: Rhythm is regular. Normal intensity S1/S2. ABDOMEN: The abdomen is distended with fluid wave. Hepatomegaly. Extremities: Marked swelling of both lower extremities with weeping. SKIN: Not overtly jaundiced-appearing. No significant rash. NEUROLOGIC: hat brusher machine II-XII are grossly intact. No focal motor weakness. MUSCULOSKELETAL: Generalized muscle wasting. ASSESSMENT/PLAN: (C18.2) Malignant neoplasm of ascending colon (HCC) (primary encounter diagnosis) (C78.7) Liver metastases (HCC) Assessment: -pT3 pN2b M1a stage IV adenocarcinoma of the ascending colon. -CT after first two cycles showed ADAL liver (had ablation therapy prior to chemotherapy). Plan was to complete 6 cycles FOLFIRI with cetuximab then proceed with definitive chemo/RT for HANDN primary. Patient stopped chemotherapy for colon cancer after cycle #4. -Positive for microsatellite instability (loss of mismatch protein; microsatellite instability detected) partial loss of MSH6 and complete loss of MLH1 and PMS2. -k-farzad wild type. -Patient has had slowly progressive metastatic colon cancer over the last 5 years. He has not consistently followed up with his care. -I again had a very open and lola discussion with the patient and his girlfriend today that I still think is very reasonable to treat with chemotherapy and EGFR directed treatment (counts and other labs reasonable). Doing so may extend his life considerably. However the window of opportunity for treatment is rapidly closing. At this juncture he would like to be treated and I therefore recommended FOLFOX with panitumumab. I discussed the rationale, logistics, potential risks (including ), benefits and alternatives, as well as the personnel involved in the administration of FOLFOX/panitumumab. I answered his questions in detail and he verbalized understanding and agreed with the recommended therapy. Please see the electronic consent document for details of doses and schedule. -Avoid irinotecan for now until it is determined as to whether or not he has improved liver function assuming disease response to FOLFOX/panitumumab. Plan: -Begin chemotherapy early next week. -Genetic counseling at some point. (R18.8) Other ascites Assessment: -Symptomatic. Plan: -Rx for Lasix and Aldactone. -Scheduled for weekly therapeutic paracentesis at [facility] for the time being. (R10.84) Generalized abdominal pain Assessment: -Advised him to stop all acetaminophen products immediately. -He has quite a large disease burden in the liver along with significant ascites causing pain. Plan: -Rx oxycodone. 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 -Now with recurrent/enlarging left level II LN. This is stable since October 2017. Plan: -Monitor. James Godoy DO CNOVSP Observed: 04/16/2018 Status: COMPLETED Source: [place] 2:00 PM [facility] REPOSITORY Visit (SP) Office ([place]) JANELLE PAULA ([id number]) 1965 M Date Time Provider Department 04/16/18 2:00 PM JAMES GODOY During your visit today, we recorded the following information about you: Temperature Pulse Blood pressure Weight 97.4 degrees 96/minute 129/77 89.1 kg James Godoy DO 04/16/2018 4:36 PM Signed Diagnoses: 1) Stage IV colon cancer. K-farzad wild type. 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 HPI: The patient is a 52-yo male who had intermittent abdominal pain over year prior to presentation. Had CT at [facility] 02/03/2014. Hypodense lesion in segment 7 of liver 1 cm. Previously noted cyst in segment IVb. Irregularity of the cecum with adjacent abnormally enlarged lymph node. Largest node was right abdominal mesentery 1.[address] Nugent who performed colonoscopy 02/17/2014--Colon, proximal ascending, biopsy Invasive moderately differentiated adenocarcinoma. Underwent surgery 02/18/2014: Final pathology: 8 cm adenocarcinoma with focal mucinous diff through muscularis propria. 8 of 21 nodes positive. Metastatic nodule in omentum 2.5 cm. Positive for microsatellite instability. Other significant issue is a 6 month h/o enlarged left cervical LN. CT neck 02/17/2014 showed 2.8 cm at level IIB. Had biopsy of left pharyngeal tonstil 03/15/2014. Pathology: Poorly differentiated SCC; p16 positive. Had cutaneous SCC removed from posterior neck in 2011. Previous therapy: Colon cancer 1) Liver directed therapy; 6 foci ablated microwave 06/15/2014. 2) FOLFOX/Cetuximab x4 cycles. Previous therapy: Head and neck cancer 1) Radiation--not completed. Patient did not previously follow-up here. He was seen an oncologist in September 2016. He underwent a CT scan at [facility] on 09/27/2016. And apparently had a PET scan done in 2014 at [facility]. The CT scan from September 2016 demonstrated numerous low attenuation lesions throughout the right and left liver. There were some pleural-based small 2-3 mm nodules. No other areas of concern. Patient was advised to have an abdominal MRI. He did not undergo that procedure. Presents for ongoing oncologic management--hospital follow up. Interim history: He did not follow up for CT scans in October. He presented to the emergency room at [facility] on Saturday with complaints of increasing abdominal girth and pain. CT scan demonstrated innumerable hypodense masses scattered throughout both lobes the liver. There was marked hepatomegaly. Spleen was noted to be unremarkable. The IVC was noted to be markedly narrowed. There were small scattered lymph nodes in the retroperitoneum with prominent lymph nodes in the portal venous measuring up to 1.8 cm in size. Initial CBC showed a white count 6600. Hemoglobin 12.3 g/dL and the platelet count was 323,000. INR was 1.4. The PTT was prolonged at 43.9 seconds and the PT was prolonged at 16.7 seconds. Chemistry panel significant for sodium of 1:30. Total bilirubin was 3.3 and the AST and ALT were elevated to 200 7418 international units per liter. Alkaline phosphatase was 1858 international units per liter. Total protein was 7.4 and the albumin was 2.3. Calcium was 8.5 mg/dL. The patient underwent a diagnostic and therapeutic paracentesis on 04/15/2018. 5670 mL's of dark alex colored fluid were removed. Cytology negative for malignant cells. Patient was discharged following paracentesis. He reports his abdomen is feeling better. He still having significant pain in the lower part of the abdomen and has been using a lot of Tylenol home to supplement the Percocet he's been getting from his PCP.. No unusual bleeding or unexplained bruising. He has been eating on a regular basis. Bowels are working. No signs of GI bleeding. He's not had nausea or vomiting. PMH, medications and allergies personally reviewed by me today. Any changes documented in appropriate section. ROS: Constitutional: Denies episodes of fever and night sweats. Neuro: Denies MOTA, vertigo and imbalance. Resp: No shortness of breath at rest. CVS: Denies exertional chest pain, PND, orthopnea and LE edema. GI: See above. : No dysuria or gross hematuria. No symptoms of bladder outlet obstruction. Endo: No hot flashes. Musculoskeletal: Denies bone, back, joint and muscular pain. Heme: See above. Psych: Normal mood. PHYSICAL EXAM: Vitals: Blood pressure 129/77, pulse 96, temperature 36.3 ?C (97.4 ?F), temperature source Oral, weight 89.1 kg (196 lb 8 oz), SpO2 100 %. Chronically ill-appearing and in no acute distress. EYES: Sclerae are icteric bilaterally. ENT: Edentulous. NECK: Supple. LYMPHATIC: Firm, fixed lymphadenopathy upper left neck unchanged from previous exam. RESPIRATORY: Inspiratory breath sounds are of diminished intensity in all fernandez. CARDIOVASCULAR: Rhythm is regular. Normal intensity S1/S2. ABDOMEN: The abdomen is distended with fluid wave. Hepatomegaly. Extremities: Marked swelling of both lower extremities with weeping. SKIN: Not overtly jaundiced-appearing. No significant rash. NEUROLOGIC: hat brusher machine II-XII are grossly intact. No focal motor weakness. MUSCULOSKELETAL: Generalized muscle wasting. ASSESSMENT/PLAN: (C18.2) Malignant neoplasm of ascending colon (HCC) (primary encounter diagnosis) (C78.7) Liver metastases (HCC) Assessment: -pT3 pN2b M1a stage IV adenocarcinoma of the ascending colon. -CT after first two cycles showed ADAL liver (had ablation therapy prior to chemotherapy). Plan was to complete 6 cycles FOLFIRI with cetuximab then proceed with definitive chemo/RT for HANDN primary. Patient stopped chemotherapy for colon cancer after cycle #4. -Positive for microsatellite instability (loss of mismatch protein; microsatellite instability detected) partial loss of MSH6 and complete loss of MLH1 and PMS2. -k-farzad wild type. -Patient has had slowly progressive metastatic colon cancer over the last 5 years. He has not consistently followed up with his care. -I again had a very open and lola discussion with the patient and his girlfriend today that I still think is very reasonable to treat with chemotherapy and EGFR directed treatment (counts and other labs reasonable). Doing so may extend his life considerably. However the window of opportunity for treatment is rapidly closing. At this juncture he would like to be treated and I therefore recommended FOLFOX with panitumumab. I discussed the rationale, logistics, potential risks (including ), benefits and alternatives, as well as the personnel involved in the administration of FOLFOX/panitumumab. I answered his questions in detail and he verbalized understanding and agreed with the recommended therapy. Please see the electronic consent document for details of doses and schedule. -Avoid irinotecan for now until it is determined as to whether or not he has improved liver function assuming disease response to FOLFOX/panitumumab. Plan: -Begin chemotherapy early next week. -Genetic counseling at some point. (R18.8) Other ascites Assessment: -Symptomatic. Plan: -Rx for Lasix and Aldactone. -Scheduled for weekly therapeutic paracentesis at [facility] for the time being. (R10.84) Generalized abdominal pain Assessment: -Advised him to stop all acetaminophen products immediately. -He has quite a large disease burden in the liver along with significant ascites causing pain. Plan: -Rx oxycodone. 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 -Now with recurrent/enlarging left level II LN. This is stable since October 2017. Plan: -Monitor. James Godoy DO Referring Provider: JAMES GODOY [[id number]] Allergies As of Date: 04/16/2018 Noted Allergy Reaction SHELLFISH DERIVED 02/12/2014 10 - Anaphylaxis Comments: Date Reviewed: 04/16/2018 Reviewed by: Sadia Harper - Fully Assessed Reason for Visit: Established Patient [175] Primary Visit Diagnosis:Malignant neoplasm of ascending colon (HCC) [C18.2] Other Visit Diagnoses:Secondary malignant neoplasm of liver (HCC) [C78.7] Generalized abdominal pain [R10.84] Other ascites [R18.8] Order(s):COMP METABOLIC PANEL [SQCMP] Order #: [id number] FUTURE CEA BLD [SQCEA] Order #: [id number] FUTURE ANGELITA ABS GRAN CT + CBC [SQWAGCBC] Order #: [id number] FUTURE MAGNESIUM BLD [SQMG1] Order #: [id number] FUTURE oxyCODONE IR (ROXICODONE) 5 mg immediate release tabletTake 1-2 tablets by mouth every 4 hours as needed for up to 14 days. FOR PAIN.Disp: 120 tabletRfl: 0 furosemide (LASIX) 20 mg tabletTake 1 tablet by mouth once daily.Disp: 30 tabletRfl: 2 spironolactone (ALDACTONE) 25 mg tabletTake 1 tablet by mouth once daily.Disp: 30 tabletRfl: 3 Follow-up and Disposition History Recorded Prescriptions as of 04/16/2018 Sig: ONDANSETRON 8 MG DISINTEGRATI* Take 8 mg by mouth every 8 ho* MUCINEX 600 MG TABLET, EXTEND* 1 tablet. Prn CITALOPRAM 20 MG TABLET Take 20 mg by mouth once manfred* ALBUTEROL SULFATE HFA 90 MCG/* Inhale 2 Puffs as instructed * OMEPRAZOLE 20 MG CAPSULE,THEODORE* Take 2 capsules by mouth once* LISINOPRIL 10 MG TABLET Take 10 mg by mouth once manfred* OXYCODONE 5 MG TABLET Take 1-2 tablets by mouth mirian* FUROSEMIDE 20 MG TABLET Take 1 tablet by mouth once d* SPIRONOLACTONE 25 MG TABLET Take 1 tablet by mouth once d* SODIUM CHLORIDE 0.9% FLUSH NURSING USE ONLY: USED FOR * HEPARIN LOCK FLUSH (PORCINE) * NURSING USE ONLY: USE FOR I* Medication notes this encounter ONDANSETRON 4 MG DISINTEGRATING TABLET >> Sadia Harper MA 04/16/2018 1:58 PM >> SADIA HARPER MA Wed Apr 16, 2018 1:58 PM No longer taking this strength. Problem List As Of Date 04/16/2018 Noted Resolved Shortness of breath [R06.02] INVALID FOR*03/26/[address] scan [R93.89] INVALID FOR*03/26/2014 History of TB (tuberculosis) [Z86.11] INVALID FOR* Tobacco abuse [Z72.0] INVALID FOR* Malignant neoplasm of ascending colon (HCC) [C1*INVALID FOR* SCC (squamous cell carcinoma) [C44.92] INVALID FOR* More... Secondary malignant neoplasm of liver (HCC) [C7*INVALID FOR* Tonsillar cancer (HCC) [C09.9] More... Liver metastases (HCC) [C78.7] Hypertension [I10] Pain in throat [R07.0] INVALID FOR* Other ascites [R18.8] INVALID FOR* Encounter Status:Closed by JAMES GODOY DO on 04/16/18 CONSULTATION Observed: 04/15/2018 Status: F Source: ANGELITA 3:16 PM [facility] REPOSITORY [facility] Medical Records Department [address] [address] Consultation 04/15/18 0836 MR#: [id number] Acct: [id number] Name: JANELLE PAULA Rep #: [id number] : 1965 52 From: James Godoy DO PCP: NATALIIA Baer Status: ADM IN Y Location: [place] [id number] ADDENDUM by James Godoy DO on 04/15/18 at 1516 Assessment/Plan All Active Problems Ascites (Acute) Abdominal swelling (Acute) Swelling of both lower extremities (Acute) Colon cancer metastasized to liver (Acute) In Assessment and Plan, should read could considerably extend his life. 04/15/18 1516 <Electronically signed by James Godoy DO> Date James Godoy DO cc: NATALIIA Serna; Francisco Torres DO; James Godoy DO * Signed Problem List (1) Colon cancer metastasized to liver Status: Acute - Consult Date of Consult: 04/15/18. - Reason for Consult Diagnoses: 1) Stage IV colon cancer. K-farzad wild type. 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 HPI: The patient is a 52-yo male who had intermittent abdominal pain over year prior to presentation in 2013. Had CT at [facility] 02/03/2014. Hypodense lesion in segment 7 of liver 1 cm. Previously noted cyst in segment IVb. Irregularity of the cecum with adjacent abnormally enlarged lymph node. Largest node was right abdominal mesentery 1.[address] Nugent who performed colonoscopy 02/17/2014--Colon, proximal ascending, biopsy Invasive moderately differentiated adenocarcinoma. Underwent surgery 02/18/2014: Pathology: 8 cm adenocarcinoma with focal mucinous diff through muscularis propria. 8 of 21 nodes positive. Metastatic nodule in omentum 2.5 cm. Positive for microsatellite instability. Other significant issue is a 6 month h/o enlarged left cervical LN at presentation. CT neck 02/17/2014 showed 2.8 cm at level IIB. Had biopsy of left pharyngeal tonstil 03/15/2014. Pathology: Poorly differentiated SCC; p16 positive. Had cutaneous SCC removed from posterior neck in 2011. Previous therapy: Colon cancer 1) Liver directed therapy; 6 foci ablated microwave 06/15/2014. 2) FOLFOX/Cetuximab x4 cycles. Previous therapy: Head and neck cancer 1) Radiation--patient did not complete. Patient did not previously follow-up with me until once in 10/2017. He was seen by an oncologist in September 2016. He underwent a CT scan at [facility] on 09/27/2016. Had a PET scan done in 2014 at [facility]. The CT scan from September 2016 demonstrated numerous low attenuation lesions throughout the right and left liver. There were some pleural-based small 2-3 mm nodules. No other areas of concern. Patient was advised to have an abdominal MRI. He did not undergo that procedure. Seen by me in October 2017 for enlarging left cervical lymph node. Repeat staging studies with plan for treatment for colon cancer planned but patient to not follow-up. Presented to the ED yesterday with a several month history of worsening abdominal distention and discomfort. CT scan shows significant metastatic disease burden in the liver along with ascites. Patient admitted with plan for diagnostic and therapeutic paracentesis. He's also had significant swelling of his lower extremities. Appetite is declined. No recent episodes of fever. Allergies shellfish derived Allergy (Verified 04/14/18 11:11) Itching Current Medications Albuterol Sulfate (Ventolin Aerosols) 2.5 mg INHALATION Q4H PRN PRN Reason: SOB/WHEEZING Citalopram Hydrobromide (Celexa) 20 mg PO DAILY [facility] Last Admin: 04/14/18 16:19 Dose: 20 mg Sodium Chloride () 1,000 mls @ 75 mls/hr IV .[id number] [facility] Stop: 04/15/18 20:44 Last Admin: 04/14/18 18:42 Dose: 75 mls/hr Lisinopril (Zestril) 40 mg PO DAILY [facility] Last Admin: 04/14/18 16:19 Dose: 40 mg Magnesium Hydroxide (Milk Of Magnesia) 30 ml PO DAILY PRN PRN PRN Reason: Constipation Ondansetron HCl (Zofran) 8 mg PO Q8H PRN PRN PRN Reason: NAUSEA Oxycodone HCl (Oxyir) 5 mg PO Q4H PRN PRN PRN Reason: PAIN Last Admin: 04/15/18 02:45 Dose: 5 mg Pantoprazole Sodium (Protonix) 20 mg PO DAILY [facility] Last Admin: 04/14/18 16:19 Dose: 20 mg Sodium Chloride () 5 - 30 ml IV UD PRN PRN Reason: SALINE FLUSH PHYSICAL EXAM: Vitals: Vital Signs Temp 98.3 F 04/15/18 02:38 Pulse 107 H 04/15/18 07:04 Resp 22 H 04/15/18 02:38 BP 140/94 H 04/15/18 02:38 Pulse Ox 94 04/15/18 02:38 Intake AND Output Intake Total 360 / 360 1737 / 1737 Output Total 175 / 175 Balance 360 / 360 1562 / 1562 Weight: 86.137 kg 87.2 kg Ill-appearing and in no acute distress. EYES: Sclerae are icteric bilaterally. NECK: Supple. LYMPHATIC: firm, enlarged stable fixed lymph node upper left neck. RESPIRATORY: Inspiratory breath sounds are of diminished in all fernandez. CARDIOVASCULAR: Rhythm is regular. ABDOMEN: abdomen is distended with a fluid wave. There is hepatomegaly. Extremities: bilateral lower stomach swelling with Kavon wraps in place. NEUROLOGIC: hat brusher machine II-XII are grossly intact. No focal motor weakness. MUSCULOSKELETAL: generalized muscle wasting. ASSESSMENT/PLAN: 1) Metastatic colon cancer. Assessment: -KPS is 40-50%. -Farzad wild type tumor. -patient has had slowly progressive metastatic colon cancer over the last 5 years. He has not consistently followed up with his care. -I had a very open and lola discussion with the patient today that I still think is very reasonable to treat with chemotherapy and EGFR directed treatment (counts and other labs reasonable. Doing so can't extend his life considerably. However that window of opportunity for treatment is rapidly closing. At this juncture he seems to be open to the idea of undergoing treatment. I explained that once he has paracentesis he might be appropriate for discharge and then we can arrange to have chemotherapy started fairly quickly. Plan: -Paracentesis today. -Potential discharge today. -Anticipate starting FOLFOX with panitumumab early next week. -Avoid irinotecan (FOLFIRI) for now until it is determined as to whether or not he has improved liver function assuming disease response. -He'll need to be scheduled for once weekly therapeutic paracentesis as an outpatient. 04/15/18 0848 <Electronically signed by James Godoy DO> Date James Gdooy DO Cosigner Signature (if applicable): Date CC: NATALIIA Serna; Francisco Torres DO; James Godoy DO Signed DISCHARGE SUMMARY Observed: 04/15/2018 Status: F Source: [place] 2:45 PM [facility] Medical Records Department [address] [place] [address] Discharge Summary 04/15/18 1233 MR#: [id number] Acct: [id number] Name: JANELLE PAULA Rep #: [id number] : 1965 52 From: Jaylin WILLIAM PCP: NATALIIA Baer Status: ADM IN Y [id number] <Jaylin Elkins - Last Filed: 04/15/18 14:37> Discharge Date and Diagnosis - Problem List Patient Problems: Active and Suspected Problems Ascites (Acute) Date of Admission: 04/14/18 Date of Discharge: 04/15/18 - Primary Discharge Diagnosis Active and Suspected Problems 1. Metastatic colon cancer 2. Suspected malignant ascites secondary to #1 status post paracentesis 3. Hyperbilirubinemia-secondary to #1. 4. 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 Hospital Course and Treatment Imaging Results: Diagnostic Data Abdomen/Pelvis CT 04/14/18 12:54 IMPRESSION: There is marked enlargement of the liver with innumerable metastatic lesions scattered throughout both lobes of the liver. The liver is markedly narrowing the upper aspect of the IVC, possibly accounting for the leg swelling and soft tissue edema seen in the upper aspects of both legs on the CT. There is marked ascites in the abdomen and pelvis. There are prominent lymph nodes in the portal venous space. There are small lymph nodes scattered along the retroperitoneum. There are small metastases in both lung bases. Electronically Signed: Hallie Kapadia MD at 14:02 EDT Tel Direct: [phone], Service support , Chest CT 04/14/18 12:54 IMPRESSION: Bilateral multiple pulmonary nodules in keeping with metastatic disease. Marked degree of hepatomegaly with perisplenic and perigastric hepatic fluid. Diffuse hepatic metastasis. Electronically Signed: Flakito Justice MD at 13:49 EDT Tel [phone], Service support , Dr. Godoy- Oncology Operations: None Procedures: Paracentesis Summary of Care Provided: The patient is a 52 year old M admitted 1029 due to abdominal swelling and lower extremity swelling. Patient has a history of metastatic colon cancer status post colon resection and chemotherapy/radiation about 3-1/2 years ago. He aborted treatment and discontinued following with oncology. His other past medical history includes hypertension, GERD, depression, tobacco dependence. CT of chest showed bilateral multiple pulmonary nodules consistent with metastatic disease. Marked degree of hepatomegaly with perisplenic and perigastric hepatic fluid. Diffuse hepatic metastasis. CT of abdomen showed enlargement of liver with innumerable metastatic lesions scattered throughout both lobes of the liver. Marked ascites in the abdomen and pelvis. Prominent lymph nodes in the portal venous space. Small metastasis in both lung bases. Oncology consulted. Patient has follow-up with Dr. Godoy in the past. Oncology wishes to begin chemotherapy as soon as possible. Therapeutic and diagnostic paracentesis completed, fluid results pending. Ultrasound bilateral lower extremities negative for DVT. Continue Kavon wraps bilateral lower extremities. Patient will follow up with primary care physician within 1 week. Follow-up with oncology this week with plans for chemotherapy early next week. CMP in 1 week as outpatient to be followed by oncology. General: Alert, Oriented x3, Cooperative, No apparent distress HEENT: Atraumatic, PERRLA, EOMI, Normocephalic Oral: Dry Mucosa Neck: Supple, No JVD, Negative Carotid Bruits Lungs: Clear to auscultation, Normal air movement Cardiovascular: Regular rate, Regular Rhythm, Normal S1, Normal S2, No murmurs Abdomen: Severe abdominal distention/ascites Extremities: Bilateral lower extremity edema +3 Skin: No rashes, No breakdown Musculoskeletal: No Tenderness to Palpation of Joints or Extremities Lymphatic: No Cervical, Supraclavicular, or Inguinal Adenopathy Neurological: Cranial nerves II-XII grossly intact, Neuro grossly intact Psych/Mental Status: Normal Affect, Appropriate Patient seen exam prior to discharge. Physical assessment as noted above. Patient stable for discharge home with close follow-up with oncology. This patient was seen by NATALIIA Miguel under the supervision of Dr. Torres. Patient Problems: Active and Suspected Problems Ascites (Acute) - Physical Exam Vital Signs Temp Pulse Resp BP Pulse Ox 97.8 F 100 20 H 152/86 H 98 04/15/18 12:20 04/15/18 12:20 04/15/18 12:20 04/15/18 12:20 04/15/18 12:20 Oxygen Delivery Method Room Air Weight: 192 lb 3.889 oz Body Mass Index (BMI) 27.2 Intake and Output for Last 24 Hours Intake Total 360 / 360 3325 / 3325 Output Total 425 / 425 Balance 360 / 360 2900 / 2900 Laboratory Tests Past 24 Hrs WBC RBC Hgb Hct MCV MCH WBC 7.1 RBC 4.11 L Hgb 11.6 L Hct 34.7 L WBC RBC Hgb Hct MCV MCH MCHC RDW RDW Differential Discharge Diet: No Restrictions Discharge Activity: Return to Normal Activity Call your doctor if you observe: Shortness of breath, Dizziness, Fainting spells, Chest pain Home Medications: Medications to take at Discharge Acetaminophen [Tylenol Extra Strength] 1,500 mg PO PRN PRN 04/14/18 Albuterol Sulfate [Ventolin Hfa] 2 puff IH Q4H PRN PRN 04/14/18 Citalopram [Celexa] 20 mg PO DAILY 04/14/18 Lisinopril 40 mg PO DAILY 04/14/18 Omeprazole 20 mg PO DAILY 04/14/18 Ondansetron [Zofran Odt] 8 mg PO Q8H PRN PRN 04/14/18 Oxycodone HCl/Acetaminophen [Oxycodon-Acetaminophen 7.5-325] 1 each PO Q4H PRN PRN 04/14/18 Furosemide 40 mg PO DAILY #30 tablet 04/15/18 Spironolactone 100 mg PO DAILY #30 tablet 04/15/18 Following Prescrptions Were Given to Patient: Furosemide 40 mg PO DAILY #30 tablet Spironolactone 100 mg PO DAILY #30 tablet Other Amb Orders: Comprehensive Metabolic Profil Location: Laboratory Primary Care Physician: Wai Serna NP-C [Primary Care Provider] - Please follow up with your Primary Care Physician in: 1 Week Please Follow Up With: James Godoy DO When: 2-3 days, call for appt. Disposition: Home Minutes spent on discharge:: 35 Patient Condition:: Fair Medical Necessity - Tobacco Use Smoking Status: Current every day smoker - 2 packs of cigarettes daily Tobacco Use: Cigarettes Meaningful Use Info Meaningful Use Diagnoses (Choose all that apply): None applicable <Francisco Torres - Last Filed: 04/15/18 14:44> Discharge Date and Diagnosis - Primary Discharge Diagnosis Active and Suspected Problems Abdominal swelling (Acute) Swelling of both lower extremities (Acute) Colon cancer metastasized to liver (Acute) Hospital Course and Treatment Imaging Results: 04/15/18 15:26 Paracentesis with US [US] Routine Operations: None Procedures: Paracentesis Summary of Care Provided: Patient seen and examined independently. Data reviewed. I agree with the above note by the nurse practitioner. The patient is a 52 year old M presents with increasing abdominal distention. Patient has a history of colon cancer. Presents to the emergency room was found to have some market ascites. Presumably, these ascites or malignant given the patient's known metastatic colon cancer. Patient has numerous hepatic metastases. Patient underwent a paracentesis today that removed 5670 cc of dark alex fluid. Patient also has lower extremity edema. Duplex of the lower extremities was negative. This is probably related with the etiology of his ascites which is due to the hepatic metastases. She will continue with Lasix as well as spironolactone to help with diuresis to help prevent further ascites. Is likely due to portal hypertension, not due to cirrhosis, but due to the hepatic metastases. [] - Physical Exam General: Alert, Cooperative, No apparent distress HEENT: Atraumatic, Normocephalic Oral: Moist Mucosa, No Gingival or Mucosal Lesions/ Ulcerations Lungs: Clear to auscultation, Normal air movement, No rhonchi, No wheeze Cardiovascular: Regular rate, Regular Rhythm, Normal S1, Normal S2, No murmurs Abdomen: Bowel Sounds Present, Soft, Non Tender, No Hepato- splenomegaly, Distended Extremities: No Calf Tenderness, Edema Vital Signs Temp Pulse Resp BP Pulse Ox 36.6 C 100 20 H 152/86 H 98 04/15/18 12:20 04/15/18 12:20 04/15/18 12:20 04/15/18 12:20 04/15/18 12:20 Oxygen Delivery Method Room Air Weight: 87.2 kg Body Mass Index (BMI) 27.2 Intake and Output for Last 24 Hours Intake Total 360 / 360 3325 / 3325 Output Total 425 / 425 Balance 360 / 360 2900 / 2900 Laboratory Tests Past 24 Hrs WBC 7.1 RBC 4.11 L Hgb 11.6 L Hct 34.7 L MCV 84.4 MCH 28.2 MCHC 33.4 RDW 16.9 H RDW Differential 51.4 H WBC RBC Hgb Hct MCV MCH MCHC RDW RDW Differential WBC RBC Hgb Hct MCV MCH MCHC RDW RDW Differential Medical Necessity - Tobacco Use Smoking Status: Current every day smoker Meaningful Use Info Meaningful Use Diagnoses (Choose all that apply): None applicable Code Visit OBSV E AND M: 67853 Observation care discharge 04/15/18 1445 <Electronically signed by Jaylin WILLIAM> Date Jaylin Elkins CITY DETECTIVELisaC 04/15/18 1444<Electronically signed by Francisco RIOS Cosigner Signature (if applicable): Date Francisco Torres DO CC: NAATLIIA Serna; NATAILIA Elkins; Francisco Torres DO Signed VENOUS DUPLEX LOWER Observed: 04/15/2018 Status: F Source: [place] EXTREMITY 2:27 PM [facility] Cardiovascular Services [address] [place] [id number] Venous Duplex US - Darwin Extrem 04/14/18 1553 MR#: [id number] Acct: [id number] Name: JANELLE PAULA Rep #: [id number] : 1965 52 From: Nikos Varela MD Attending Dr: Francisco Torres DO Status: ADM IN Ordering Dr: Swati Waddell MD Date: 04/14/18 Location: [facility] Sex: M C Admitted: 04/14/18 [id number] TAG_START Cardiovascular Services Venous Doppler [address] [place], [place] [address] Ordering Physician: Swati Waddell TAG_ENDED TAG_START Name: JANELLE PAULA Study Date: 04/14/2018 03:53 PM Patient Location: [facility] : 1965 Gender: Male Age: 52 yrs TAG_ENDED Reason For Study: LEG SWELLING RIGHT LEFT GSV is normal. GSV is normal. CFV is compressible, spontaneous, phasic, CFV is compressible, spontaneous, phasic, competent and demonstrates normal competent, and demonstrates normal augmentation. augmentation. FV is compressible, spontaneous, phasic, FV is compressible, spontaneous, phasic, competent and demonstrates normal competent and demonstrates normal augmentation. augmentation. POP V is compressible, spontaneous, phasic, POP V is compressible, spontaneous, phasic, competent and demonstrates normal competent and demonstrates normal augmentation. augmentation. T/P Trunk is compressible. T/P Trunk is compressible. PTV is compressible. PTV is compressible. RT PerV is compressible. LT PerV is compressible. Procedure Exam performed portable in patient room. A preliminary report was called and/or faxed to [facility]. <> Interpretation Summary Deep veins of the lower extremities are bilaterally patent and compressible segmentally. There is no evidence of deep vein thrombosis on either side. Valvular competence appears intact within the proximal deep venous systems bilaterally. The greater saphenous veins appear bilaterally patent and compressible segmentally. TAG_START TAG_ENDED Ordering Physician: Swati Waddell Referring Physician: Wai Serna Performed By: Radha Portillo RVT 04/15/18 1427 Date Nikos Varela MD CC: CITY DETECTIVE-C Wai Serna; Francisco Waddell MD Date Dictated: 04/14/18 1553 Date Transcribed: 04/15/181426 Etl [employer] Developer: Signed GLUCOSE, BODY FLUID Collected: 04/15/2018 Status: F Source: [place] 1:10 PM [facility] RE[facility] Order Comment: Specimen Source: ? TYPE CODE TESTS RESULT OUT OF RANGE REFERENCE UNITS LAB L503.0100 40-70 mg/dL High GLU,BF 109 Performed By: #### L503.0100, L503.0300, L504.0250 #### [facility] [address] [place], [place], [address] PROTEIN, BODY FLUID Collected: 04/15/2018 Status: F Source: [place] 1:10 PM [facility] Order Comment: Specimen Source: ? TYPE CODE TESTS RESULT OUT OF RANGE REFERENCE UNITS LAB L503.0300 Not Establ. g/dL Normal 2.4 PROTEIN,BF Performed By: #### L503.0100, L503.0300, L504.0250 #### [facility] [address] [place], [place], [address] LDH,BODY FLUID Collected: 04/15/2018 Status: F Source: [place] 1:10 PM [facility] Order Comment: Specimen Source: ? TYPE CODE TESTS RESULT OUT OF RANGE REFERENCE UNITS LAB L504.0250 Not Establ. Units/l Normal LDH,BF 780 Performed By: #### L503.0100, L503.0300, L504.0250 #### [facility] [address] [place], [address] BODY FLUID CELL Collected: 04/15/2018 Status: C Source: [place] COUNT+DIFF 1:10 PM [facility] TYPE CODE TESTS RESULT OUT OF RANGE REFERENCE UNITS LAB L200.3380 10 3/ul Normal BFTC# 0.546 Result Comment: This is the Total Number of Nucleated Cell Types in the Body Fluid. LAB L200.3400 10 6/ul Normal RBC/BF 0.60044 LAB L200.3500 10 3/uL Normal 0.529 WBC/BF LAB L200.3510 % Normal 55.6 BF PMN WBC% LAB L200.3515 % Normal 44.4 BF MN WBC% LAB L200.3520 10 3/uL Normal 0.235 BF MN WBC# LAB L200.3525 10 3/uL Normal 0.294 BF PMN WBC# LAB L200.4400 Normal PATH COMM/BF Reviewed Result Comment: Negative for malignant cells. Ross Mcdermott M.D. 04/16/18 AMENDED REPORT 04/16/18 1529 PATH COMM/BF previously reported as: May follow LAB L200.3600 % Normal PMN 20 LAB L200.3700 % Normal LYMPH 10 LAB L200.3800 % Normal MONO/BF 55 LAB L200.3950 % Normal MACROPHAGES 15 LAB L200.3100 Normal SOURCE/BF OTHER Result Comment: PARACENTESIS LAB L200.3200 Normal YELLOW COLOR/BF LAB L200.3300 Normal SL CLDY APPEAR/BF LAB L200.4420 Normal BFM Test not 2ND SPEC performed Performed By: #### L200.0200 #### [facility] [address] [place], [place], [address] CYTOLOGY, BODY FLUID / Collected: 04/15/2018 Status: F Source: [place] CSF 1:10 PM [facility] TYPE CODE TESTS RESULT OUT OF RANGE REFERENCE UNITS LAB L350.1000 SEE Normal PATHOLOGY CYTOLOGY,BF REPORT /CSF Result Comment: Specimen submitted to Anatomical Pathology Department for testing. Performed By: #### L350.1000 #### [facility] [address] [place], [address] PH, BODY FLUID Collected: 04/15/2018 Status: F Source: [place] [id number] 1:10 PM [facility] Order Comment: Specimen Source: ? TYPE CODE TESTS RESULT OUT OF RANGE REFERENCE UNITS LAB L3800.0400 Not Estab. Normal PHBF 7.4 93218 Result Comment: This test was developed and its performance characteristics determined by [facility]. It has not been cleared or approved by the Food and Drug Administration. Performed at: [address] [id number] Medical Data Analyst: Yves [place] MD, Phone: [phone] Performed By: #### L3800.0400 #### [facility] (refer to report for specific site) refer to report for address and phone number DISCHARGE INSTRUCTION Observed: 04/15/2018 Status: F Source: [place] 12:58 PM [facility] Medical Records Department [address] [place] [address] Instructions for Home/Discharge Instructions 04/15/18 1228 MR#: [id number] Acct: [id number] Name: JANELLE PAULA Rep #: [id number] : 1965 52 From: Jaylin WILLIAM PCP: NATALIIA Baer Status: ADM IN ADDENDUM by NATALIIA Elkins on 04/15/18 at 1258 Furosemide 40 mg daily and Spironolactone 100 mg daily added to home regimen. Repeat CMP in 1 week. 04/15/18 1258 Date Jaylin Elkins cc: NATALIIA Serna; James Godoy DO * Signed - Discharge Diagnoses Current Active Problems: Current Active and Chronic Problems Abdominal swelling (Acute) Swelling of both lower extremities (Acute) Colon cancer metastasized to liver (Acute) You will use the following diet at home:: No restrictions Discharge Activity: Return to Normal Activity Call your doctor if you observe: Shortness of breath, Dizziness, Fainting spells, Chest pain Additional Instructions: Continue kavon wraps on both lower extremities. Allergies/Adverse Reactions: Allergies shellfish derived Allergy (Verified 04/14/18 11:11) Itching Medications to take at Discharge Acetaminophen [Tylenol Extra Strength] 1,500 mg PO PRN PRN 04/14/18 Albuterol Sulfate [Ventolin Hfa] 2 puff IH Q4H PRN PRN 04/14/18 Citalopram [Celexa] 20 mg PO DAILY 04/14/18 Lisinopril 40 mg PO DAILY 04/14/18 Omeprazole 20 mg PO DAILY 04/14/18 Ondansetron [Zofran Odt] 8 mg PO Q8H PRN PRN 04/14/18 Oxycodone HCl/Acetaminophen [Oxycodon-Acetaminophen 7.5-325] 1 each PO Q4H PRN PRN 04/14/18 Primary Care Physician: Wai Serna NP-C [Primary Care Provider] - Please follow up with your Primary Care Physician in: 1 Week Test Results: Test results from this visit will be discussed in further detail at your follow-up appointment, if applicable. Please Follow Up With: James Godoy DO When: 2-3 days, call for appt. Proposed Discharge Date: 04/15/18 04/15/18 1233 <Electronically signed by Jaylin WILLIAM> Date Jaylin WILLIAM CC: NATALIIA Godoy DO 12 LEAD ELECTROCARDIOGRAM Observed: 04/15/2018 Status: F Source: [place] 9:48 AM [facility] Cardiovascular Services [address] [place] [address] 12 Lead EKG 04/14/18 1145 MR#: [id number] Acct: [id number] Name: JANELLE PAULA Rep #: [id number] : 1965 52 From: James Porter MD Attending Dr: Francisco Torres DO Status: ADM IN Ordering Dr: Ketan Carlson DO Date: 04/14/18 Location: [facility] Sex: M C Admitted: 04/14/18 Test Reason : EDEMA Blood Pressure : / mmHG Vent. Rate : 105 BPM Atrial Rate : 105 BPM P-R Int : 136 ms QRS Dur : 084 ms QT Int : 346 ms P-R-T Axes : 046 034 057 degrees QTc Int : 457 ms Sinus tachycardia Low voltage QRS (LIMB LEADS) Borderline ECG Confirmed by GERMAN HOOPER, JAMES ([id number]), pictures editor MARIELA EDWARD ([id number]) on 04/15/2018 9:48:20 AM Referred By: CAROLYN Confirmed By:JAMES PORTER MD 04/15/18 0948 Date James Porter MD CC: NATALIIA Serna; Ketan Carlson DO; Francisco Torres DO Signed ABO RH BLOOD TYPE, Collected: 04/15/2018 Status: F Source: [place] PATIENT 8:23 AM [facility] RE[facility] Order Comment: Number of units to be transfused: 2 When is Plasma to be Transfused? 0757 TYPE CODE TESTS RESULT OUT OF RANGE REFERENCE UNITS LAB B10.0800 B Normal BLOOD POSITIVE TYPE GEL Performed By: #### B10.0010 #### [facility] [address] [place], [address] FFP Collected: 04/15/2018 Status: F Source: [place] 8:23 AM [facility] REPOSITORY TYPE CODE TESTS RESULT OUT OF REFERENCE UNITS RANGE LAB U100.0900 [id number] TRANSFUSED PRODUCT: Fresh Frozen Plasma COUNT: 2 Performed By: #### U100.0900 #### [facility] - refer to report for specific site CBC W/DIFF, AUTOMATED Collected: 04/15/2018 Status: F Source: [place] 6:20 AM [facility] REPOSITORY TYPE CODE TESTS RESULT OUT OF RANGE REFERENCE UNITS LAB L100.1000 4.4-11.0 K/mm3 Normal WBC 7.1 LAB L100.1200 4.6-6.2 M/mm3 Low RBC 4.11 LAB L100.1300 13.0-16.5 g/dl Low HGB 11.6 LAB L100.1400 40-54 % Low HCT 34.7 LAB L100.1500 80-94 fL Normal MCV 84.4 LAB L100.1600 27.0-32.0 pg Normal MCH 28.2 LAB L100.1700 32-36 g/gl Normal MCHC 33.4 LAB L100.1810 11.6-14.6 % High RDW CV 16.9 LAB L100.1820 35.1-43.9 fl High RDW SD 51.4 LAB L100.1900 150-450 K/mm3 Normal PLT 295 LAB L100.2000 6.2-12.0 fl Normal MPV 10.4 LAB L100.2100 47-70 % High NEUT% 79.9 LAB L100.2200 19-41 % Low LY% 6.5 LAB L100.2300 0-10 % High MONO% 11.4 LAB L100.2400 0-5 % Normal EO% 1.8 LAB L100.2500 0-1 % Normal BASO% 0.3 LAB L100.2550 0.0-0.9 % Normal IM GRAN % 0.100 Result Comment: IG% - Immature Granulocytes (promyelocytes, myelocytes and metamyelocytes) > 1% indicates that a LEFT SHIFT is Present. LAB L100.2620 2.0-7.7 X10 3/uL Absolute Neut Normal 5.7 LAB L100.2720 0.83-4.51 X10 3/ul Low Absolute Lymph 0.46 LAB L100.4500 SMEAR COMMENT Normal SCANNED LAB L100.7600 HYPOCHROMASIA Normal 2+ LAB L100.8600 TARGET CELLS Normal 1+ Performed By: #### L100.0100 #### [facility] [address] [place], [address] PROTHROMBIN TIME W/INR Collected: 04/15/2018 Status: F Source: [place] 6:20 AM [facility] REPOSITORY TYPE CODE TESTS RESULT OUT OF RANGE REFERENCE UNITS LAB L300.4150 11.7-14.9 SECONDS High PROTIME 18.2 LAB L300.4200 Normal INR 1.5 Performed By: #### L300.3900, L300.4310 #### [facility] [address] [place], [address] PARTIAL THROMBOPLAST Collected: 04/15/2018 Status: F Source: [place] TIME 6:20 AM [facility] REPOSITORY TYPE CODE TESTS RESULT OUT OF REFERENCE UNITS RANGE LAB L300.4310 24.1-36.2 Seconds High PTT 45.6 Performed By: #### L300.3900, L300.4310 #### [facility] [address] [place], [address] COMPREHENSIVE METABOLIC Collected: 04/15/2018 Status: F Source: [place] PROFIL 6:20 AM [facility] REPOSITORY TYPE CODE TESTS RESULT OUT OF RANGE REFERENCE UNITS LAB L501.0100 74-106 mg/dL Normal GLU 94 Result Comment: Please note revised GLUCOSE reference range effective 2017. LAB L501.1000 7-18 mg/dL High BUN 20 LAB L501.1100 0.70-1.30 mg/dL Normal CREAT,SERUM 0.87 Result Comment: The validity of the calculated GFR AND GFRAA in patients over 70 years has not been determined. Clinical correlation is essential. LAB L501.1110 >60 mL/min Normal EST GFR 98 Result Comment: Non- GFR Calc LAB L501.1115 >60 mL/min Normal EST GFR - AA 118 Result Comment: GFR Calc LAB L501.1255 ml/min Normal Estimated CRCL 102.55 LAB L501.1300 10-20 RATIO High BUN/CRE 23.0 LAB L501.1500 6.4-8. g/dL 2 T PROT Normal 6.7 LAB L501.1800 3.2-5. g/dL Low 0 ALB 2.0 LAB L501.1950 2.2-4. g/dL High 2 GLOB 4.7 LAB L501.2000 0.9-2. RATIO Low 4 A/G 0.4 LAB L501.2200 8.5-10 mg/dL .1 CA Normal 8.6 LAB L501.4100 15-37 U/L High AST 269 LAB L501.4305 45-117 U/L High ALK P 1783 LAB L501.4405 16-61 U/L High ALT 124 LAB L501.4600 0.20-1 mg/dL High .00 T BILI 3.20 LAB L501.5300 136-14 mmol/L Low 5 NA 132 LAB L501.5600 3.5-5. mmol/L 1 K Normal 4.7 LAB L501.5900 98-107 mmol/L CL Normal 99 LAB L501.6100 21.0-3 mmol/L 2.0 CO2 Normal 22.0 LAB L501.6200 5-15 GAP Normal 11 Performed By: #### L500.4050 #### [facility] [address] [place], [address] FLUID/WASHING Observed: 04/15/2018 Status: F Source: [place] 12:00 AM [facility] REPOSITORY Patient: JANELLE PAULA : 1965 (52/M) Acct Num: [id number] Phys: Francisco Torres DO Unit Num: [id number] Loc: U [id number] Specimen: [id number] Received: 04/15/18 - 1456 Spec Type: Fluid TISSUES 1 TISSUES: PARACENTESIS FLUID CYTOLOGY GROSS Received is 100 ml of yellow cloudy fluid labeled with the patient's name and and designated per the requisition as paracentesis. Submitted for cytology preparation including cell block. / 04/15/18 TC:5 CPT: 42862, 82032 CYTOLOGY STUDY Slides are reviewed. The specimen consists of macrophages, mesothelial cells and inflammatory cells. DIAGNOSIS CYTOLOGY Paracentesis fluid for cytology (cytospin and cell block): Negative for malignant cells. See cytology study. SJ:mario 04/16/18 HEADER OPERATION: Ultrasound-guided right paracentesis PRE-OP DIAGNOSIS: Ascites TISSUE SUBMITTED: Paracentesis fluid for cytology Signed Ross Mcdermott 04/16/18 <signature on file> Performed By: #### PFLU #### [facility] [address] [place], [address] HISTORY AND PHYSICAL Observed: 04/14/2018 Status: F Source: [place] EXAM 6:36 PM [facility] REPOSITORY [facility] Medical Records Department [address] [place] [address] History and Physical 04/14/18 1457 MR#: [id number] Acct: [id number] Name: JANELLE PAULA Rep #: [id number] : 1965 52 From: Swati Waddell MD PCP: NATALIIA Baer Status: ADM IN Y Location: [place] [address] Problem List (1) Abdominal swelling Status: Acute (2) Swelling of both lower extremities Status: Acute History of Present Illness Date of Admission: 04/14/18 Chief Complaint: abdominal swelling; bilateral leg swelling The patient is a 52 year old M with a history of colon cancer status post colon resection and chemotherapy and radiation about 4 years ago. He subsequently never followed up with oncology. He was admitted through the ED on 04/14/18 with a complaint of abdominal swelling and bilateral lower extremity swelling for 1.5 weeks. Symptoms are progressively worsening with associated shortness of breath and increased weakness. He therefore decided to come into the ED for assessment. He denied any fever or chills, any cough or chest pain and admitted to generalized abdominal pain due to the abdominal swelling. He denied any diarrhea vomiting. Vitals were significant for blood pressure of 149/100 and respiratory rate of 69 at time of review. Sodium was 130 with elevated total bilirubin of 3.3 and direct bilirubin of 2.81. AST and ALT was 274 and 118 and ALP was elevated at 1858. CBC was unremarkable. Abdominal pelvic CT showed marked enlargement of the liver with innumerable metastatic lesions scattered throughout both lobes of the liver with liver markedly narrowing the upper aspect of the IVC possibly accounting for the leg swelling and soft tissue edema seen in the upper aspects of both legs of the CT market ascites in the abdomen and pelvis and prominent lymph nodes in the periportal space and small meta stasis in both lung bases. Chest CT showed bilateral multiple small rounded nodular densities with the largest being around 8.4 mm suggestive of pulmonary metastasis. Is been admitted to be managed for malignant ascites due to metastatic cancer, likely of the colon. [] Past Medical History Allergies shellfish derived Allergy (Verified 04/14/18 11:11) Itching Home Medications: Ambulatory Orders Medication Instructions Recorded Acetaminophen [Tylenol Extra 1,500 mg PO PRN PRN 04/14/18 Surgical History: - - hemicolectomy Psychiatric History: No pertinent psych hx Lives: Spouse/ Significant Other Smoking Status: Current every day smoker - 2 packs of cigarettes daily Tobacco Use: Cigarettes Alcohol: None - *Family History Maternal History Items: No pertinent history Paternal History Items: No pertinent history Review of Systems Constitutional: Reports: Anorexia, Chills, Malaise, Weakness, Fatigue. Denies: Fever, Night Sweats Eyes: Denies: Blurred vision HEENT: Denies: Head Aches, Sinus Congestion, Sinus Drainage Cardiovascular: Denies: Chest Pain, Orthopnea, Palpitations, Paroxysmal Noc. Dyspnea, Syncope Respiratory: Reports: Shortness of Breath. Denies: Cough, Shortness of breath at rest, Shortness of breath upon exertion, Sputum production, Wheezing Gastrointestinal: Reports: Abdominal Pain, - - abdominal distension. Denies: Constipation, Diarrhea, Dyspepsia, Nausea, Vomiting Genitourinary: Denies: Dysuria Musculoskeletal: Denies: Joint Pain, Joint Tenderness Skin: Reports: Jaundice. Denies: Rash, Wounds Neurological: Denies: Numbness, Tingling, Focal weakness Psychiatric: Denies: Anxiety, Depression, Homicidal Ideations, Suicidal Ideations Hematologic/ Lymphatic: Denies: Easy Bruising, Easy Bleeding VTE Information - Inpt Only VTE Present on Admission: No VTE Pharm Prophylaxis ordered?: Yes Patient Problems: Active and Suspected Problems Abdominal swelling (Acute) Swelling of both lower extremities (Acute) - Physical Exam General: Alert, Oriented x3, Cooperative, No apparent distress, Lethargic HEENT: Atraumatic, PERRLA, EOMI, Normocephalic, - - very jaundiced sclera Oral: Dry Mucosa Neck: Supple, No JVD, Negative Carotid Bruits Lungs: Clear to auscultation, Normal air movement, No rhonchi, No wheeze, No rales Cardiovascular: Regular rate, Regular Rhythm, Normal S1, Normal S2, No murmurs Abdomen: - - abdomen very distended, with positive fluid thrill. Unable to assess for organomegaly o/a of severe abdominal distension and ascites Extremities: - - bialteral LE pitting 3+ pedal edema, extending from ankle up to groin. Skin: No rashes, No breakdown Musculoskeletal: No Tenderness to Palpation of Joints or Extremities Lymphatic: No Cervical, Supraclavicular, or Inguinal Adenopathy Neurological: Cranial nerves II-XII grossly intact, Neuro grossly intact Psych/Mental Status: Normal Affect, Appropriate, Alert and oriented to time, place, person, mood and affect Vital Signs Temp Pulse Resp BP Pulse Ox 97.5 F L 69 19 H 149/100 H 100 04/14/18 11:09 04/14/18 13:54 04/14/18 13:54 04/14/18 13:54 04/14/18 13:54 Oxygen Delivery Method Room Air Weight: 175 lb Body Mass Index (BMI) 25.1 Laboratory Tests Past 24 Hrs WBC RBC Hgb Hct MCV MCH MCHC RDW RDW Differential Plt Count MPV Immature Gran % (Auto) Diagnostic Data Abdomen/Pelvis CT 04/14/18 12:54 IMPRESSION: There is marked enlargement of the liver with innumerable metastatic lesions scattered throughout both lobes of the liver. The liver is markedly narrowing the upper aspect of the IVC, possibly accounting for the leg swelling and soft tissue edema seen in the upper aspects of both legs on the CT. There is marked ascites in the abdomen and pelvis. There are prominent lymph nodes in the portal venous space. There are small lymph nodes scattered along the retroperitoneum. There are small metastases in both lung bases. Electronically Signed: Hallie Kapadia MD at 14:02 EDT Tel Direct: [phone], Service support , Chest CT 04/14/18 12:54 IMPRESSION: Bilateral multiple pulmonary nodules in keeping with metastatic disease. Marked degree of hepatomegaly with perisplenic and perigastric hepatic fluid. Diffuse hepatic metastasis. Electronically Signed: Flakito Justice MD at 13:49 EDT Tel [phone], Service support , Assessment/Plan All Active Problems Abdominal swelling (Acute) Swelling of both lower extremities (Acute) 52 y/o admitted with the complaint of abdominal distention bilateral lower extremity edema. 1. Malignant ascites likely due to metastatic colon cancer * lost to follow-up with oncologist after he had chemotherapy and radiation hemicolectomy for colon cancer about 4 years ago. * admit to PCU with telemetry * for therapeutic and diagnostic paracentesis by radiology. * oncology consult. * 2. Metastatic cancer, likely colon * CT abdomen, pelvis and chest showed numerous hepatic nodules obstructing the IVC and enlarged lymph nodes as well. CT of the chest showed bilateral pulmonary nodules likely metastatic. * As mentioned, treated for colon cancer 4 years ago so this is presumed to be metastatic cancer likely due to colon cancer. * Consult oncology. Prognosis is very very poor. * 3. Bilateral LE swelling * likely due to impedance of venous and lymphatic drainage from LEs by massive ascites. However cannot fully rule out DVT due to patient's malignancy. * Will get duplex of both lower extremities. * Will monitor for resolution with paracentesis. * Bilateral Kavon wraps. * 4. Hyperbilirubinemia due to hepatic metastases of colon cancer * total bilirubin is 3.3; mainly a direct bilirubin-2.8 * AST/ALT-274/118. ALP-1858 * consult oncology * INR-1.4, APTT-16.7, APTT-43.9 * 5. Hypertension: on Lisinopril 6. Depression: on celexa 7. Nicotine dependence: smokes 2 packs daily. counselled to quit. DVT prophylaxis: SCDs CODE STATUS: DNRCCA * Patient and significant other counseled extensively about different types of CODE STATUS including full code, DNR CCA and DNR CCA. Patient elects to be DNRCCA. Total cawf-ul-[id number] time 16 minutes. * Code Visit Inpatient E AND M: 84644 Init Hosp L3 Procedures: 88704 Advncd Care Plan 30 Min 04/14/18 8526 <Electronically signed by Swati Waddell MD> Date Swati Waddell MD Cosigner Signature: Date (if applicable) CC: NATALIIA Serna; Swati Waddell MD Signed EMERGENCY DEPARTMENT Observed: 04/14/2018 Status: F Source: [place] SUMMARY 3:58 PM [facility] REPOSITORY [facility] Medical Records Department [address] [place] [address] Emergency Department Summary 04/14/18 1151 MR#: [id number] Acct: [id number] Name: JANELLE PAUAL Rep #: [id number] : 1965 52 From: Ketan Carlson DO PCP: NATALIIA Baer Status: ADM IN - ER Visit Summary Date of Service: 04/14/18 Chief Complaint: Leg swelling History of Present Illness: The patient is a 52 M who tells me that 1-1/2 weeks ago his abdomen began to swell. Then about 1 week ago he developed swelling to the legs. He notes legs are now weeping. He tells me that about 3-1/2-4 years ago he was diagnosed with stage IV colon cancer as well as throat cancer. After a partial colectomy that was last time he had radiation or chemotherapy. He states he has been avoiding his oncologist Dr. Godoy. He has been seeing his primary care doctor every few months he states. He notes he has been having a lot of diarrhea. He notes some shortness of breath. Physical Examination: Afebrile noted tachycardia stable blood pressure Gen: Well-nourished well-developed Head: Normocephalic atraumatic Eyes: Perrl EOMI ENT: TMs clear no rhinorrhea moist mucous membranes Neck: Supple no lymphadenopathy no JVD nontender CVS: Regular rate cardiac rhythm no murmurs normal S1-S2 Respiratory: No distress clear to auscultation bilaterally chest nontender Abdomen: Distended and tense normal bowel sounds no masses Back: Nontender Extremity: Bilateral lower extremity edema with petechial- like rash near the ankles Skin: Jaundice dry Neuro: alert orientated 3 CN II-XII intact normal strength sensation reflexes gait cerebellar Psych: Normal affect normal mood Test Results: White count 6.6 with hemoglobin 12.3. EKG shows sinus tachycardia rate of 105. BMP normal. Liver enzymes showed a total bili 3.3 direct bili 2.81. Alk phos of 1858. ALT 118 AST 274. INR 1.[address] the chest demonstrates numerous metastasis. CT of the pelvis demonstrates hepatomegaly with large tumor burden and large ascites with compression of the inferior vena cava. Emergency Department Course and Treatment: I spoke with Dr. Godoy our hospitalist and with the patient and his family. Our plan will be admission for further care. Impression: 1. Metastatic colon cancer 2. Inferior vena cava syndrome This note was generated with evolsoation software. It may contain incorrect words, spelling, and punctuation that were not noted in review of the chart prior to signing ED Disposition - Plan for ED Patient: Chief Complaint: Edema Referrals: Wai Serna NP-C [Primary Care Provider] - What to do if you have Problems For any increased pain, shortness of breath, bleeding, nausea or vomiting, chest pain, or any unexpected problems, contact your Primary Care Provider. Call [facility] ([phone]) or report to the closest Emergency Room. Call 911 if necessary. 04/14/18 1558 <Electronically signed by Ketan Carlson DO> Date Ketan Carlson DO Cosigner Signature (If Indicated): Date CC: CITY [employer]ECTIVE-Bobby Serna PARACENTESIS WITH US Observed: 04/14/2018 Status: F Source: [place] 3:26 PM [facility] REPOSITORY [facility] Imaging Services [address] [place] [address] Paracentesis with US MR#: [id number] Acct: [id number] Name: JANELLE PAULA Heide Rep #: [id number] : 1965 M 52 From: Flakito Justice MD PCP: NATALIIA Baer Status: ADM IN Study: Paracentesis with US Date of Exam: 04/15/18 Exam# [id number] Ordering Dr: Swati Waddell MD PROCEDURE: Ultrasound guided paracentesis. DATE OF EXAMINATION: April 15, 2018.. INDICATION: Male, 52 years old. Ascites. PHYSICIAN: Flakito Justice M.D. TECHNIQUE: The risks, benefits, and alternatives to the procedure were explained to the patient. The specific risks of bleeding, infection, and damage to bowel were detailed and accepted. Witnessed informed consent was obtained. The abdomen was ultrasonographically surveyed. An appropriate pocket of fluid was identified at the right lower quadrant. The skin were cleaned and prepped in the usual sterile fashion. Using ultrasound guidance, the peritoneal cavity was accessed with a 5-Mongolian paracentesis needle/catheter system. The trocar was removed. A total of 5670 ml of dark alex-colored were removed from the peritoneal cavity. A 120 mL sample was sent to the laboratory. The catheter was removed and a sterile dressing was applied. The procedure was well tolerated. US/Paracentesis with US IMPRESSION: Ultrasound guided paracentesis. Electronically Signed: Flakito Justice MD at 14:16 EDT Tel [phone], Service support , CC: NATALIIA Serna; Swati Waddell MD [employer] Developer: Signed CHEST WITH CONTRAST Observed: 04/14/2018 Status: F Source: [place] 12:55 PM [facility] REPOSITORY [facility] Imaging Services [address] [place], [place] [id number] Chest WITH Contrast MR#: [id number] Acct: [id number] Name: JANELLE PAULA Rep #: [id number] : 1965 M 52 From: Flakito Justice MD PCP: NATALIIA Baer Status: REG ER Study: Chest WITH Contrast Date of Exam: 04/14/18 Exam# [id number] Ordering Dr: Ketan Carlson DO STUDY: CT CHEST WITH CONTRAST REASON FOR EXAM: Male, 52 years old. History of bilateral lower extremity swelling. The patient is a history of stage IV colon cancer. RADIATION DOSAGE (If Supplied By Facility): CTDIvol = ( 15.43 ) mGy, DLP = ( 1623.37 ) mGycm TECHNIQUE: Transaxial imaging was performed following intravenous administration of 100 ml of Isovue 300 contrast material. Multiplanar coronal and sagittal images were reformatted. Individualized dose optimization techniques were used for this CT. COMPARISON: Comparison is made with prior study dated September 27, 2016. FINDINGS: Elevation of the right hemidiaphragm. Mild degree of emphysematous changes. Since prior study, there are multiple small rounded nodular densities seen in both lungs. The largest measures 8.4 mm and is seen in the lateral aspect of the right upper lobe as seen on axial image #46. This is suggestive of a pulmonary metastasis. Mild degree of atelectasis along the anterior aspect of the right middle lobe. There is no demonstrated pleural abnormality. Normal heart and pericardium. Normal mediastinum. Normal hilar regions. Normal enhanced pulmonary arteries. Normal aorta arch and descending thoracic aorta. Normal osseous structures. Elevation of the right hemidiaphragm. Marked degree of hepatomegaly with diffuse hepatic metastasis. There is evidence of a perihepatic and perisplenic fluid. Limited visualization of the upper abdomen demonstrates evidence of mesenteric metastasis. CT/Chest WITH Contrast IMPRESSION: Bilateral multiple pulmonary nodules in keeping with metastatic disease. Marked degree of hepatomegaly with perisplenic and perigastric hepatic fluid. Diffuse hepatic metastasis. Electronically Signed: Flakito Justice MD at 13:49 EDT Tel [phone], Service support , CC: NATALIIA Serna; Ketan Carlson DO [employer] Developer: Signed ABDOMEN/PELVIS W IV CONT Observed: 04/14/2018 Status: F Source: [place] ONLY 12:55 PM [facility] Imaging Services [address] [place] [address] Abdomen/Pelvis W IV Cont ONLY MR#: [id number] Acct: [id number] Name: JANELLE PAULA Rep #: [id number] : 1965 M 52 From: Hallie Kapadia MD PCP: Wai Serna [employer]ECTIVE-Bobby Status: REG ER Study: Abdomen/Pelvis W IV Cont ONLY Date of Exam: 04/14/18 Exam# [id number] Ordering Dr: Ketan Carlson DO STUDY: CT ABDOMEN AND PELVIS WITH CONTRAST REASON FOR EXAM: Male, 52 years old. Leg swelling RADIATION DOSAGE (If Supplied By Facility): CTDIvol = ( 15.43 ) mGy, DLP = ( 1623.37 ) mGycm TECHNIQUE: Transaxial images were obtained from the lower chest to the upper thighs without oral contrast. 100 ml of Isovue 300 contrast was administered. Sagittal and coronal images were reconstructed. Individualized dose optimization techniques were used for this CT. COMPARISON: CT abdomen and pelvis report dated September 27, 2016 FINDINGS: The lower chest is dictated separately. There are scattered nodules in both lung bases, likely metastases. There is no pleural effusion. The heart is normal in size. There are innumerable hypodense masses scattered throughout both lobes of the liver. There is marked enlargement of the liver. There is non-visualization of the gallbladder, which may be secondary to either contraction or a prior cholecystectomy. The spleen is unremarkable. The pancreas is unremarkable. The adrenal glands are unremarkable. There is a 1 cm cyst in the lower pole of the right kidney. There is no dilatation of the collecting system in the right kidney. The left kidney is unremarkable. There is no dilatation of the collecting system in the left kidney. The stomach is unremarkable. The small bowel is unremarkable. The proximal colon is surgically absent. There are minimal vascular calcifications. The upper IVC is markedly narrowed. There are small lymph nodes scattered in the retroperitoneum. There are prominent lymph nodes in the portal venous space measuring up to 1.8 cm in size. There is marked fluid throughout the abdomen. The urinary bladder is unremarkable. The prostate is normal in size with calcifications. There is moderate fluid in the pelvis. There is stranding throughout the subcutaneous tissues of the upper legs bilaterally. There are mild degenerative changes in the visualized spine. There are a few nonspecific lytic abnormalities in the pelvic bones. CT/Abdomen/Pelvis W IV Cont ONLY IMPRESSION: There is marked enlargement of the liver with innumerable metastatic lesions scattered throughout both lobes of the liver. The liver is markedly narrowing the upper aspect of the IVC, possibly accounting for the leg swelling and soft tissue edema seen in the upper aspects of both legs on the CT. There is marked ascites in the abdomen and pelvis. There are prominent lymph nodes in the portal venous space. There are small lymph nodes scattered along the retroperitoneum. There are small metastases in both lung bases. Electronically Signed: Hallie Kapadia MD at 14:02 EDT Tel Direct: [phone], Service support , CC: NATALIIA Serna; Ketan Carlson DO [employer] Developer: Signed URINALYSIS, COMPLETE Collected: 04/14/2018 Status: F Source: [place] 12:25 PM [facility] REPOSITORY Order Comment: How was Urine Obtained? CATHETER SPECIMEN TYPE CODE TESTS RESULT OUT OF RANGE REFERENCE UNITS LAB L400.3000 Yellow COLOR Normal Straw LAB L400.3050 Clear Normal CLARITY Clear LAB L400.3200 Normal mg/dl Normal GLUCOSE, UR Normal LAB L400.3300 Negative mg/dL High BILIRUBIN URINE 3 Result Comment: COLOR OF URINE MAY AFFECT DIPSTICK RESULTS. LAB L400.3400 Negative mg/dl Normal KETONE UR Negative LAB L400.3465 1.002-1.030 Normal SP.GR. DIPSTX 1.020 LAB L400.3550 5.0 - 8.0 pH Normal UR 5.0 LAB L400.3600 Negative mg/dl High PROT DIPSTX 30 LAB L400.3700 Normal mg/dl High UROBILI 4 LAB L400.3750 Negative Normal NITRITE UR Negative LAB L400.3780 Negative /ul Normal OCCULT Negative BLOOD-UR LAB L400.3800 Negative /ul High LEUK ESTERASE 25 LAB L400.4050 0-5 /hpf Normal WBC 0-5 SEEN LAB L400.4100 0-5 /hpf Normal RBC-UA 0 SEEN LAB L400.4150 0-5 /hpf Normal SQUAM EPI 0 SEEN LAB L400.4300 None Seen /hpf Normal BACTERIA RARE LAB L400.4350 <or=2+ /hpf Normal MUCUS, URINE RARE LAB L400.4400 0-5 /lpf Normal HYALINE CAST 0-5 SEEN Performed By: #### L400.0001 #### [facility] [address] [facility] [place], [address] PROTHROMBIN TIME W/INR Collected: 04/14/2018 Status: F Source: [place] 11:50 AM [facility] REPOSITORY TYPE CODE TESTS RESULT OUT OF RANGE REFERENCE UNITS LAB L300.4150 11.7-14.9 SECONDS High PROTIME 16.7 LAB L300.4200 Normal INR 1.4 Performed By: #### L300.3900, L300.4310 #### [facility] [address] [place], [address] PARTIAL THROMBOPLAST Collected: 04/14/2018 Status: F Source: [place] TIME 11:50 AM [facility] REPOSITORY TYPE CODE TESTS RESULT OUT OF REFERENCE UNITS RANGE LAB L300.4310 24.1-36.2 Seconds High PTT 43.9 Performed By: #### L300.3900, L300.4310 #### [facility] [address] [facility] [place], [address] CBC W/DIFF, AUTOMATED Collected: 04/14/2018 Status: F Source: [place] 11:50 AM [facility] REPOSITORY TYPE CODE TESTS RESULT OUT OF RANGE REFERENCE UNITS LAB L100.1000 4.4-11.0 K/mm3 Normal WBC 6.6 LAB L100.1200 4.6-6.2 M/mm3 Low RBC 4.36 LAB L100.1300 13.0-16.5 g/dl Low HGB 12.3 LAB L100.1400 40-54 % Low HCT 37.1 LAB L100.1500 80-94 fL Normal MCV 85.1 LAB L100.1600 27.0-32.0 pg Normal MCH 28.2 LAB L100.1700 32-36 g/gl Normal MCHC 33.2 LAB L100.1810 11.6-14.6 % High RDW CV 16.8 LAB L100.1820 35.1-43.9 fl High RDW SD 51.9 LAB L100.1900 150-450 K/mm3 Normal PLT 323 LAB L100.2000 6.2-12.0 fl Normal MPV 10.6 LAB L100.2100 47-70 % High NEUT% 83.8 LAB L100.2200 19-41 % Low LY% 5.5 LAB L100.2300 0-10 % Normal MONO% 8.4 LAB L100.2400 0-5 % Normal EO% 1.7 LAB L100.2500 0-1 % Normal BASO% 0.3 LAB L100.2550 0.0-0.9 % Normal IM GRAN % 0.300 Result Comment: IG% - Immature Granulocytes (promyelocytes, myelocytes and metamyelocytes) > 1% indicates that a LEFT SHIFT is Present. LAB L100.2620 2.0-7.7 X10 3/uL Normal Absolute Neut 5.5 LAB L100.2720 0.83-4.51 X10 3/ul Low Absolute Lymph 0.36 LAB L100.4500 Normal SMEAR COMMENT COMMENT Result Comment: SLIDE SCANNED - LYMPHOPENIA NOTED. Performed By: #### L100.0100 #### [facility] [address] [place], [place], [id number] BASIC METABOLIC Collected: 04/14/2018 Status: F Source: [place] PROFILE (BMP) 11:50 AM [facility] REPOSITORY TYPE CODE TESTS RESULT OUT OF RANGE REFERENCE UNITS LAB L501.0100 74-106 mg/dL High GLU 110 Result Comment: Fasting Glucose result from 100 to 125 mg/dL suggests IMPAIRED HOMEOSTASIS per A.D.A. criteria. Please note revised GLUCOSE reference range effective 2017. LAB L501.1000 7-18 mg/dL Normal BUN 16 LAB L501.1100 0.70-1.30 mg/dL Normal CREAT,SERUM 0.88 Result Comment: The validity of the calculated GFR AND GFRAA in patients over 70 years has not been determined. Clinical correlation is essential. LAB L501.1110 >60 mL/min Normal EST GFR 97 Result Comment: Non- GFR Calc LAB L501.1115 >60 mL/min Normal EST GFR - AA 117 Result Comment: GFR Calc LAB L501.1255 ml/min Normal Estimated CRCL 101.39 LAB L501.1300 10-20 RATIO BUN/CRE Normal 18.3 LAB L501.2200 8.5-10 mg/dL .1 CA Normal 8.5 LAB L501.5300 136-14 mmol/L Low 5 NA 130 LAB L501.5600 3.5-5. mmol/L 1 K Normal 4.2 LAB L501.5900 98-107 mmol/L CL Normal 99 LAB L501.6100 21.0-3 mmol/L 2.0 CO2 Normal 25.0 LAB L501.6200 5-15 GAP Normal 6 Performed By: #### L500.2500, L500.3400, L501.2450 #### [facility] [address] [facility]. [place], [place], [id number] LIVER PROFILE Collected: 04/14/2018 Status: F Source: [place] 11:50 AM [facility] REPOSITORY TYPE CODE TESTS RESULT OUT OF RANGE REFERENCE UNITS LAB L501.1500 6.4-8.2 g/dL Normal T PROT 7.4 LAB L501.1800 3.2-5.0 g/dL Low ALB 2.3 LAB L501.1950 2.2-4.2 g/dL High GLOB 5.1 LAB L501.4100 15-37 U/L High AST 274 LAB L501.4305 45-117 U/L High ALK P 1858 LAB L501.4405 16-61 U/L High ALT 118 LAB L501.4600 0.20-1.00 mg/dL High T BILI 3.30 LAB L501.4700 0.00-0.30 mg/dL High D BILI 2.81 Performed By: #### L500.2500, L500.3400, L501.2450 #### [facility] [address] [place], [place], [id number] LIPASE Collected: 04/14/2018 Status: F Source: [place] 11:50 AM [facility] REPOSITORY TYPE CODE TESTS RESULT OUT OF RANGE REFERENCE UNITS LAB L501.2450 73-393 U/L Normal LIPASE 110 Performed By: #### L500.2500, L500.3400, L501.2450 #### [facility] [address] [place], [address] PROGRESS Observed: 11/14/2017 Status: COMPLETED Source: [place] 10:43 AM [facility] REPOSITORY HNO ID: [id number] Author: James Godoy Service: (none) Author Type: Physician Type: Progress Notes Filed: 11/14/2017 12:23 PM Note Text: Diagnoses: 1) Stage IV colon cancer. K-farzad wild type. 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 HPI: The patient is a 52-yo male who had intermittent abdominal pain over year prior to presentation. Had CT at [facility] 02/03/2014. Hypodense lesion in segment 7 of liver 1 cm. Previously noted cyst in segment IVb. Irregularity of the cecum with adjacent abnormally enlarged lymph node. Largest node was right abdominal mesentery 1.[address] Nugent who performed colonoscopy 02/17/2014--Colon, proximal ascending, biopsy Invasive moderately differentiated adenocarcinoma. Underwent surgery 02/18/2014: Final pathology: 8 cm adenocarcinoma with focal mucinous diff through muscularis propria. 8 of 21 nodes positive. Metastatic nodule in omentum 2.5 cm. Positive for microsatellite instability. Other significant issue is a 6 month h/o enlarged left cervical LN. CT neck 02/17/2014 showed 2.8 cm at level IIB. Had biopsy of left pharyngeal tonstil 03/15/2014. Pathology: Poorly differentiated SCC; p16 positive. Had cutaneous SCC removed from posterior neck in 2011. Previous therapy: Colon cancer 1) Liver directed therapy; 6 foci ablated microwave 06/15/2014. 2) FOLFOX/Cetuximab x4 cycles. Previous therapy: Head and neck cancer 1) Radiation--not completed. Presents for ongoing care. Interim history: Patient did not previously follow-up here. He was seen an oncologist in September 2016. He underwent a CT scan at [facility] on 09/27/2016. And apparently had a PET scan done in 2014 at [facility]. The CT scan from September 2016 demonstrated numerous low attenuation lesions throughout the right and left liver. There were some pleural-based small 2-3 mm nodules. No other areas of concern. Patient was advised to have an abdominal MRI. He did not undergo that procedure. He presents today because he has an enlarging left cervical lymph node. This is the same place he previously had biopsy proven metastatic squamous cell carcinoma. He denies trismus. He is not having any otalgia. He denies dysphasia and odynophagia. He is not aspirating on any solids or liquids. He denies sore throat. He is having intermittent abdominal pain. Occasional constipation. No symptoms of GI bleeding. No nausea or vomiting. ROS: Constitutional: Denies episodes of fever and night sweats. Neuro: Denies MOTA, vertigo and imbalance. Resp: No shortness of breath at rest. CVS: Denies exertional chest pain, PND, orthopnea and LE edema. GI: See above. : No dysuria or gross hematuria. No symptoms of bladder outlet obstruction. Endo: No hot flashes. Musculoskeletal: Denies bone, back, joint and muscular pain. Heme: No unusual bleeding or bruising. Psych: Normal mood. PMH, medications and allergies as below personally reviewed by me today. PHYSICAL EXAM: Vitals: Blood pressure 121/73, pulse 85, temperature 36.4 ?C (97.5 ?F), height 174 cm (5' 8.5), weight 82.6 kg (182 lb). Well-appearing and in no acute distress. EYES: Sclerae are anicteric bilaterally. ENT: Oral mucosa is unremarkable. Edentulous. NECK: Supple. LYMPHATIC: Somewhat mobile tender enlarged LN left level II. RESPIRATORY: Inspiratory breath sounds are of diminished intensity in all fernandez. No rales, wheezes or rhonchi. CARDIOVASCULAR: Rhythm is regular. Normal intensity S1/S2. There is no gallop or murmur. ABDOMEN: Vague mass LUQ or LUQ abdominal wall. Extremities: Free of edema. SKIN: No jaundice or rash. No petechiae. No acneform rash. NEUROLOGIC: hat brusher machine II-XII are grossly intact. No focal motor weakness. DTRs are normal. MUSCULOSKELETAL: No joint swelling or tenderness. ASSESSMENT/PLAN: (C18.2) Malignant neoplasm of ascending colon (HCC) (primary encounter diagnosis) (C78.7) Liver metastases (HCC) Assessment: -pT3 pN2b M1a stage IV adenocarcinoma of the ascending colon. -CT after first two cycles showed ADAL liver (had ablation therapy prior to chemotherapy). Plan was to complete 6 cycles FOLFIRI with cetuximab then proceed with definitive chemo/RT for HANDN primary. Patient stopped chemotherapy for colon cancer after cycle #4. -Positive for microsatellite instability (loss of mismatch protein; microsatellite instability detected) partial loss of MSH6 and complete loss of MLH1 and PMS2. -k-farzad wild type. -Exam concerning for recurrent disea. -Discussed may be candidate for immunotherapy. He declines chemotherapy. Plan: -Genetic counseling. -CT chest, abdomen and pelvis. 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 -Now with recurrent/enlarging left level II LN. Plan: -ENT evaluation and biopsy LN. James Godoy DO CNOVSP Observed: 11/14/2017 Status: COMPLETED Source: [place] 10:10 AM [facility] REPOSITORY Visit (SP) Office ([place]) JANELLE PAULA ([id number]) 1965 M Date Time Provider Department 11/14/17 10:10 AM JAMES GODOY During your visit today, we recorded the following information about you: Temperature Pulse Blood pressure Weight 97.5 degrees 85/minute 121/73 82.6 kg Height 1.74 m Shanna Harden LPN, LPN 11/14/2017 10:51 AM Signed New pt., questionable reoccuring colon cancer. Has had symptoms for past year, no recent testing. Treated here in past for colon cancer. PASHA Evans DO 11/14/2017 12:23 PM Signed Diagnoses: 1) Stage IV colon cancer. K-farzad wild type. 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 HPI: The patient is a 52-yo male who had intermittent abdominal pain over year prior to presentation. Had CT at [facility] 02/03/2014. Hypodense lesion in segment 7 of liver 1 cm. Previously noted cyst in segment IVb. Irregularity of the cecum with adjacent abnormally enlarged lymph node. Largest node was right abdominal mesentery 1.[address] Nugent who performed colonoscopy 02/17/2014--Colon, proximal ascending, biopsy Invasive moderately differentiated adenocarcinoma. Underwent surgery 02/18/2014: Final pathology: 8 cm adenocarcinoma with focal mucinous diff through muscularis propria. 8 of 21 nodes positive. Metastatic nodule in omentum 2.5 cm. Positive for microsatellite instability. Other significant issue is a 6 month h/o enlarged left cervical LN. CT neck 02/17/2014 showed 2.8 cm at level IIB. Had biopsy of left pharyngeal tonstil 03/15/2014. Pathology: Poorly differentiated SCC; p16 positive. Had cutaneous SCC removed from posterior neck in 2011. Previous therapy: Colon cancer 1) Liver directed therapy; 6 foci ablated microwave 06/15/2014. 2) FOLFOX/Cetuximab x4 cycles. Previous therapy: Head and neck cancer 1) Radiation--not completed. Presents for ongoing care. Interim history: Patient did not previously follow-up here. He was seen an oncologist in September 2016. He underwent a CT scan at [facility] on 09/27/2016. And apparently had a PET scan done in 2014 at [facility]. The CT scan from September 2016 demonstrated numerous low attenuation lesions throughout the right and left liver. There were some pleural-based small 2-3 mm nodules. No other areas of concern. Patient was advised to have an abdominal MRI. He did not undergo that procedure. He presents today because he has an enlarging left cervical lymph node. This is the same place he previously had biopsy proven metastatic squamous cell carcinoma. He denies trismus. He is not having any otalgia. He denies dysphasia and odynophagia. He is not aspirating on any solids or liquids. He denies sore throat. He is having intermittent abdominal pain. Occasional constipation. No symptoms of GI bleeding. No nausea or vomiting. ROS: Constitutional: Denies episodes of fever and night sweats. Neuro: Denies MOTA, vertigo and imbalance. Resp: No shortness of breath at rest. CVS: Denies exertional chest pain, PND, orthopnea and LE edema. GI: See above. : No dysuria or gross hematuria. No symptoms of bladder outlet obstruction. Endo: No hot flashes. Musculoskeletal: Denies bone, back, joint and muscular pain. Heme: No unusual bleeding or bruising. Psych: Normal mood. PMH, medications and allergies as below personally reviewed by me today. PHYSICAL EXAM: Vitals: Blood pressure 121/73, pulse 85, temperature 36.4 ?C (97.5 ?F), height 174 cm (5' 8.5), weight 82.6 kg (182 lb). Well-appearing and in no acute distress. EYES: Sclerae are anicteric bilaterally. ENT: Oral mucosa is unremarkable. Edentulous. NECK: Supple. LYMPHATIC: Somewhat mobile tender enlarged LN left level II. RESPIRATORY: Inspiratory breath sounds are of diminished intensity in all fernandez. No rales, wheezes or rhonchi. CARDIOVASCULAR: Rhythm is regular. Normal intensity S1/S2. There is no gallop or murmur. ABDOMEN: Vague mass LUQ or LUQ abdominal wall. Extremities: Free of edema. SKIN: No jaundice or rash. No petechiae. No acneform rash. NEUROLOGIC: hat brusher machine II-XII are grossly intact. No focal motor weakness. DTRs are normal. MUSCULOSKELETAL: No joint swelling or tenderness. ASSESSMENT/PLAN: (C18.2) Malignant neoplasm of ascending colon (HCC) (primary encounter diagnosis) (C78.7) Liver metastases (HCC) Assessment: -pT3 pN2b M1a stage IV adenocarcinoma of the ascending colon. -CT after first two cycles showed ADAL liver (had ablation therapy prior to chemotherapy). Plan was to complete 6 cycles FOLFIRI with cetuximab then proceed with definitive chemo/RT for HANDN primary. Patient stopped chemotherapy for colon cancer after cycle #4. -Positive for microsatellite instability (loss of mismatch protein; microsatellite instability detected) partial loss of MSH6 and complete loss of MLH1 and PMS2. -k-farzad wild type. -Exam concerning for recurrent disea. -Discussed may be candidate for immunotherapy. He declines chemotherapy. Plan: -Genetic counseling. -CT chest, abdomen and pelvis. 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 -Now with recurrent/enlarging left level II LN. Plan: -ENT evaluation and biopsy LN. James Godoy DO Referring Provider: SELF [[id number]] Allergies As of Date: 11/14/2017 Noted Allergy Reaction SHELLFISH DERIVED 02/12/2014 10 - Anaphylaxis Comments: Date Reviewed: 04/20/2016 Reviewed by: Sierra Christianson Ct - Fully Assessed Reason for Visit: New Patient [[id number]] Primary Visit Diagnosis:Malignant neoplasm of ascending colon (HCC) [C18.2] Other Visit Diagnoses:Malignant neoplasm of head, face and neck (HCC) [C76.0] Liver metastases (HCC) [C78.7] Order(s):CT ABD/PEL W IVCON [[id number]] Order #: [id number] FUTURE CT CHEST W IVCON [[id number]] Order #: [id number] FUTURE iv contrast (will be provided with radiology test)CT Chest ABD/PEL-Inject, intravenously, once for 1 dose.No IV access, insert saline lock prior to the beginning of sedation, infusion, injection of imaging exam. Discontinue saline lock post exam. If Pt. has a central line or IVAD, may access for administration according to line specific nursing protocol. Once exam is complete flush line and de-access according to line specific nursing protocol in the CT contrast administration guidelines link.Disp: 1 EachRfl: 0 enteric contrast (will be provided with radiology test)For CT CHESTABD/PEL W IVCON Routine order Administer, As Directed One Time Only, via Oral, Rectal, both Oral and Rectal, Enteric Tube, Stoma or Indwelling Catheter, Enteric Contrast as designated per enteric contrast guidelinesDisp: 1 EachRfl: 0 CT NECK SOFT TISSUE W IVCON [[id number]] Order #: [id number] FUTURE [] iv contrast (will be provided with radiology test)Inject 1 Each intravenously one time only for [address] Neck W IVCON No IV access, insert saline lock prior to the sedation, infusion, injection for imaging exam. Discontinue saline lock post exam. If Pt. has a central line or IVAD, may access for administration according to line specific nursing protocol. Once exam is complete flush line and de-access according to line specific nursing protocol in the CT contrast administration guidelines link.Disp: 1 EachRfl: [address] + CBC [SQWAGCBC] Order #: [id number] FUTURE COMP METABOLIC PANEL [SQCMP] Order #: [id number] FUTURE CEA BLD [SQCEA] Order #: [id number] FUTURE MAGNESIUM BLD [SQMG1] Order #: [id number] FUTURE Follow-up and Disposition History Recorded Prescriptions as of 11/14/2017 Sig: MUCINEX 600 MG TABLET, EXTEND* 1 tablet. Prn CITALOPRAM 20 MG TABLET Take 20 mg by mouth once manfred* ONDANSETRON 4 MG DISINTEGRATI* Take 1 tablet by mouth every * OXYCODONE-ACETAMINOPHEN 7.5 M* Take 1-2 tablets by mouth mirian* ALBUTEROL SULFATE HFA 90 MCG/* Inhale 2 Puffs as instructed * OMEPRAZOLE 20 MG CAPSULE,THEODORE* Take 2 capsules by mouth once* LISINOPRIL 10 MG TABLET Take 10 mg by mouth once manfred* IV CONTRAST (RADIOLOGY PROCED* CT Chest ABD/PEL-Inject, intr* ENTERIC CONTRAST (RADIOLOGY P* For CT CHESTABD/PEL W IVCON R* IV CONTRAST (RADIOLOGY PROCED* Inject 1 Each intravenously o* HYDROCHLOROTHIAZIDE 12.5 MG C* Take 12.5 mg by mouth once da* FLUCONAZOLE 40 MG/ML ORAL ROMEO* SODIUM CHLORIDE 0.9% FLUSH NURSING USE ONLY: USED FOR * HEPARIN LOCK FLUSH (PORCINE) * NURSING USE ONLY: USE FOR I* NYSTATIN 100,000 UNIT/ML ORAL* Take 5 mL by mouth four times* FENTANYL 12 MCG/HR TRANSDERMA* Apply 1 Patch as directed mirian* FOOD SUPPLEMENT, LACTOSE-REDU* Take 237 mL by mouth three ti* LEIJJDAOHJCYIMC-MBFISGM-OAMHP* Take 10 mL by mouth every 6 h* CETIRIZINE 10 MG TABLET Take 10 mg by mouth once manfred* Medication notes this encounter HYDROCHLOROTHIAZIDE 12.5 MG CAPSULE >> Shanna Harden LPN, LPN 11/14/2017 10:17 AM >> SHANNA HARDEN November 14, 2017 10:17 AM discontinued FLUCONAZOLE 40 MG/ML ORAL SUSPENSION >> Shanna Harden LPN, [employer] TECHNICIAN 11/14/2017 10:17 AM >> SHANNA HARDEN Amaya November 14, 2017 10:17 AM discontinued SODIUM CHLORIDE 0.9% FLUSH >> Shanna Harden LPN, [employer] TECHNICIAN 11/14/2017 10:16 AM >> SHANNA HARDEN Amaya November 14, 2017 10:16 AM discontinued HEPARIN LOCK FLUSH (PORCINE) 100 UNIT/ML INTRAVENOUS SYRINGE >> Shanna Harden LPN, LPN 11/14/2017 10:17 AM >> SHANNA HARDEN Amaya November 14, 2017 10:17 AM discontinued FENTANYL 12 MCG/HR TRANSDERMAL PATCH >> Shanna Harden LPN, PASHA 11/14/2017 10:16 AM >> SHANNA HARDEN Amaya November 14, 2017 10:16 AM discontinued CETIRIZINE 10 MG TABLET >> Shanna Harden LPN, LPN 11/14/2017 10:16 AM >> SHANNA HARDEN Amaya November 14, 2017 10:16 AM discontinued Problem List As Of Date 11/14/2017 Noted Resolved Shortness of breath [R06.02] INVALID FOR*03/26/[address] scan [R93.8] INVALID FOR*03/26/2014 History of TB (tuberculosis) [Z86.11] INVALID FOR* Tobacco abuse [Z72.0] INVALID FOR* Colon cancer (HCC) [C18.9] INVALID FOR* SCC (squamous cell carcinoma) [C44.92] INVALID FOR* More... Secondary malignant neoplasm of liver (HCC) [C7*INVALID FOR* Tonsillar cancer (HCC) [C09.9] More... Liver metastases (HCC) [C78.7] Hypertension [I10] Pain in throat [R07.0] INVALID FOR* Visit Notes: >> Shanna Harden LPN Amaya November 14, 2017 10:11 AM Status: Signed New pt., questionable reoccuring colon cancer. Has had symptoms for past year, no recent testing. Treated here in past for colon cancer. Shanna Harden LPN Encounter Status:Closed by JAMES GODOY DO on 11/14/17 Observed: 07/02/2017 Status: F Source: HEMANT GRIGGS CULTURE THROAT 11:38 [facility] REPOSITORY CULTURE THROAT _THROAT CULTURE_ M I C R O B I O L O G Y R E P O R T FINAL Antimicrobial Susceptibility and Organism Identification Report Specimen Number : [id number] Requested : 07/02/17 Specimen Source : THROAT Collected : 07/02/17 11:38 [place] [facility] : OUTPATIENT Received : 07/02/17 11:38 Requesting Physician : BRAYDON Patient/Specimen Tests and Comments Specimen Comments FINAL REPORT: MIXED LYLE NO PATHOGENS PRESENT Tech : Source : THROAT ID # : [id number] FINAL Report Date : / / : Collected : 07/02/17 11:38 07/05/17.1157.BKO. 07/04/17.1013.BKO. 07/05/17.1157.BKO.COMPLETE Performed By: #### [id number] #### [facility],[address] [place] [address] ALLERGIES ALLERGIES DATE TYPE / CODE NAME / CODE REACTION SEVERITY SOURCE Drug shellfish Itching Unknown Angelita 8 Allergy/896243988( derived/K65625 [facility]) 1754(RXNORM) Hospital Repository Drug shrimp/[id number] Itching Unknown [place] 8 Allergy/936552903( 189(RXNORM) [facility] SNOMED [facility]) Hospital Repository DRUG SHELLFISH ANAPHYLAXIS [place] 4 INGREDI/178344810( DERIVED Clinic Main SNOMED CT) [place] Repository Food SHELLFISH Moderate Hemant [place] Allergy/980723966( ([facility]) Modifier) Hospital (Qualifier Repository Value) Miscellaneous No Known Drug Moderate Hemant [place] Allergy/073603751( Allergies ([facility] SNOMED CT) Modifier) [facility] (Qualifier Repository Value) ENCOUNTERS ENCOUNTERS ADMIT/DISCHARGE ACCOUNT ADMITTING ENCOUNTER LOCATION SOURCE NUMBER CLASS 04/24/2018 [id number] Ambulatory BMSBuilding:[facility] Repository 04/23/2018 [id number] Ambulatory [facility] ing:MEDOUTP Repository 04/23/2018/04/24/20 [id number] [facility] [address] ing:PCURoom: Repository [id number]: 1 04/23/2018 [id number] [facility] Ambulatory BMSBuilding:Dedra Goldstein Joy [facility] Repository 04/23/2018 [id number] [facility] Ambulatory BMSBuilding:Dedra Hamilton MS.[facility] Repository 04/16/2018/04/16/20 [id number] Ambulatory [address] Repository 04/16/2018/04/16/20 [id number] Ambulatory [address] Repository 04/16/2018/04/17/20 [id number] Ambulatory [address] Repository 04/14/2018/04/15/20 [id number] [facility] Ambulatory [place] Angelita [facility] Hospital ing:PCURoom: Repository [id number]: 1 04/14/2018 [id number] [facility] Ambulatory BMSBuilding:Dedra Hamilton MS.[facility] Repository 04/14/2018 [id number] [facility]ell Ambulatory BMSBuilding:Dedra Hamilton [facility] [facility]ository 11/14/2017/11/16/19 [id number] Ambulatory [address] Repository 07/02/2017/07/02/19 [id number] WAI SERNA Ambulatory [address] Repository PAYERS PAYERS ENCOUNTER GUARANTOR PAYER SUBSCRIBER SOURCE 04/24/2018 JANELLE Heide [id number] Primary JANELLE Goldstein [address], Insurance:CARESOURC CULLENDOB: [facility] [address]Boo: ([phone]) [facility] Number: [id number] [phone] () [id number] Repository Date:2018-04-23 [address]ATTN: [place] [address]DQ: 04/24/2018 Secondary NOT GIVENUNK Angelita Insurance:SELF PAY [facility] Number: Effective Repository Date:2018-04-24 04/23/2018 JANELLE Jaegre [id number] Primary NOT GIVENUNK [place] [facility] Insurance:SELF PAY [facility] [id number]: ([phone]) [facility] [phone] () Number: Effective Repository Date:2018-04-23 04/23/2018 JANELLE Jaeger [id number] Primary JANELLE Goldstein [address] [facility] Insurance:CARESOURCEP C[place]OB: [place] [address]Bwh: (330) olicy Number: [id number] [phone] () [id number] Repository Date:2018-04-23[address]ATTN: [place] [address]QJ: 04/23/2018 Secondary NOT GIVENUNK [place] Insurance:SELF PAY [facility] Number: Effective Repository Date:2018-04-23 04/23/2018 JANELLE [id number] Primary JANELLE Goldstein [address], Insurance:CARESOURCEP [place]: [place] [address]Uih: (330) olicy Number: [id number] [phone] () [id number] Repository Date:2018-04-23[address]ATTN: [place] [address]NQ: 04/23/2018 Secondary NOT GIVENUNK [place] Insurance:SELF PAY [facility] Number: Effective Repository Date:2018-04-23 04/23/2018 JANELLE [id number] Primary JANELLE Goldstein [address], Insurance:CARESOURCEP C[place]: [place] [address]Yxo: ([phone]) olicy Number: [id number] [phone] () [id number] Repository Date:2018-04-23 [address]ATTN: [place] [address]TJ: 04/23/2018 Secondary NOT GIVENUNK [place] Insurance:SELF PAY [facility] Number: Effective Repository Date:2018-04-23 04/14/2018 JANELLE [id number] Primary JANELLE [address]stein [address], Insurance:CARESOURCEP C[place]: [place] [address]Bat: (330) olicy Number: [id number] () [id number] Repository Date:2018-04-14[address]ATTN: [place] [address]CJ: 04/14/2018 Secondary NOT GIVENUNK [place] Insurance:SELF PAY [facility] Number: Effective Repository Date:2018-04-14 04/14/2018 JANELLE Jaeger [id number] Primary JANELLE Goldstein [address], Insurance:CARESOURCEP [place]: [place] [id number]: ([phone]) olicy Number: [id number] [phone] () [id number] Repository Date:2018-04-14P [address]ATTN: [place] [address]TY: 04/14/2018 Secondary NOT GIVENUNK [place] Insurance:SELF PAY [facility] Number: Effective Repository Date:2018-04-14 04/14/2018 JANELLE Jaeger [id number] Primary JANELLE [address]stein [address], Insurance:CARESOURCEP [place]: [place] [id number]: (264) [facility] Number: [id number] [phone] () [id number] Repository Date:2018-04-14[address]ATTN: [place] [address]II: 04/14/2018 Secondary NOT GIVENUNK [place] Insurance:SELF PAY [facility] Number: Effective Repository Date:2018-04-14 07/02/2017 JANELLE Jaeger NIGHATOB: Primary JANELLE Marcos Padilla 06/18 Insurance:CARESOURCE CULLENDOB: [facility] OUTPATIENTPolicy [id number] [place] [address] Number: [address] Repository [address]Myb: ([phone]) [id number] [place] [phone] () Date:Plan Name:[id number]
== END ==
LOC: US 12:50 → MEDOUTP 05-18 15:38
PROVIDERS: Family Provider Nurse Practitioner Family; PCP Nurse Practitioner Family; Referring Provider Internal Medicine Hematology & Oncology; Visit Provider Internal Medicine Hematology & Oncology
DX: R18.8 Other ascites (principal); C18.9 Malignant neoplasm of colon, unspecified; C78.7 Secondary malignant neoplasm of liver and intrahepatic bile duct
CPT/HCPCS: 36415; 76705; 85027; 85610; 85730; 86850; 86900